=== PATIENT | female | born 1950 | race African-American/Black ===

== ENCOUNTER 2018-06-29 06:30 | Day surgery (SDC) | payer MEDICARE, BC, SELFPAY ==
--- NOTE | 2018-06-28 17:59 | W.PIPPEYE ---
History of Present Illness Chief Complaint: Progressive decreased vision, right eye Narrative: The patient is a 68-year-old female who presented with complaints of progressive decreased vision in both eyes at both distance and near. She notes significant decrease in quality of life because she cannot see. On examination she was noted to have bilateral nuclear cataracts. Corrected visual acuity measured 20/25 in each eye. She was significantly symptomatic that she desired cataract surgery and attempt to improve and maximize her vision and improve her quality of life. NOTE: The Chief Complaint, HPI, Past Medical History, Past Surgical History, Family History, Social History, Medications, and complete Ophthalmic Exam with detailed Assessment and Plan have already been documented in the patient's outpatient ophthalmic record and are not covered again in detail here. PFSH Medical History Nuclear sclerotic cataract of right eye (Acute) Anemia Arthritis Depression Esophageal reflux Surgical History Appendectomy Colonoscopy - MAC (08/23/17) Vaginal hysterectomy Social History Smoking/Tobacco Use Status: Former Tobacco Use Meds Home Medications Medication Instructions Recorded Confirmed Type ezetimibe [Zetia] 10 mg PO DAILY tab-cap 02/25/13 06/27/18 History calcium carbonate [Calcium 600] 600 mg PO BID 08/06/13 06/27/18 History iron 25 mg DAILY 08/06/13 06/27/18 History zolpidem 12.5 mg PO HS PRN PRN 08/06/13 06/27/18 History multivitamin [Daily Multi-Vitamin] 1 ea PO DAILY 01/28/14 06/27/18 History Allergies Allergy/AdvReac Type Severity Reaction Status Date / Time No Known Allergies Allergy Unverified 08/23/17 07:34 Exam OCULAR EXAM:: Most recent ocular examination revealed corrected visual acuity of 20/25 right eye, 20/25 left eye. Intraocular pressure is 12 OU. Extraocular motility is normal. Pupils equal, round, and reactive without afferent pupillary defect slit-lamp examination shows pupils dilating to 4.5 mm OU. 1+ nuclear cataract OU. Funduscopic examination reveals disc cupping of 0.3 OU with good color. The optic nerves have good perfusion and normal color. The retinal vasculature is normal without significant tortuosity or abnormality. The maculas are normal in appearance with normal contour and foveal reflex appropriate for age. The peripheral retina and vitreous are normal. BRIGHTNESS ACUITY TESTING (BAT):: Brightness acuity testing of the right eye off is 20/25. Low and medium is 20/25. High is 20/30. Assessment and Plan (1) Nuclear sclerotic cataract of right eye: Current visit: No Status: Acute Assessment: Visually significant cataract, right eye. Plan: Cataract extraction with intraocular lens implantation, right eye Note: NOTE:: The details of the planned surgery, including the risks, indications,limitations,expectations,outcome and possible complications were explained to the patient. The patient understands the complications including, but not limited to: infection, hemorrhage, posterior dislocation of the lens or nuclear fragments which may require the intervention of a vitreoretinal surgeon, possible loss of the eye, or from anesthetic complications. The patient has been made aware of the option of not having surgery, that vision following surgery may not be equal to that prior to surgery, and that the planned surgery may not achieve the intended results. Following this discussion, which the patient appeared to understand, the patient wishes to proceed with cataract surgery with lens implantation of the affected eye to improve and maximize vision.
[2018-06-29 07:08] VITALS: BP 156/74; PULSE 67; RESP 16; TEMP 36.2; O2SAT 99
[2018-06-29] MEDS: Tropicam./Phenyleph. (1/2.5%) 5 ML BTL OD ×3 (07:18→07:26)
[2018-06-29] MEDS: Tetracaine 0.5% 4 ML BTL OD ×4 (07:18→08:32)
[2018-06-29] MEDS: Lidocaine 2% Jelly 6 ML SYR (08:32)
[2018-06-29] MEDS: Lidocaine 1% Pres-Free 5 ML VIAL (08:34)
[2018-06-29] MEDS: Balanced Salt Soln.-PLUS 500 ML BAG (08:34)
[2018-06-29] MEDS: Povidone-Iodine Ophth 30 ML BTL (09:03)
--- NOTE | 2018-06-29 09:14 | PDOC.DSDIS_ITS ---
Discharge Plan Discharge Details Reason For Visit: CATARACT OD Attending Provider: Jair Hurst Primary Care Provider: [facility] [place] Meds and New Rx's Prescriptions: No Action ezetimibe [Zetia] 10 MG tablet 10 mg PO DAILY RF: 0 calcium carbonate [Calcium 600] 600 MG tablet 600 mg PO BID RF: 0 iron 18 MG tablet 25 mg DAILY RF: 0 zolpidem 12.5 MG tablet,ext release multiphase 12.5 mg PO HS PRN PRNRF: 0 multivitamin [Daily Multi-Vitamin] 1 EACH tablet 1 ea PO DAILY RF: 0 Discharge Instructions Stand Alone Forms: Post-op Topical Cataract, Marcia Alfaro (DSU) DS: Diagnosis Discharge Diagnosis (1) Status post cataract extraction and insertion of intraocular lens of right eye: Status: Acute
--- NOTE | 2018-06-29 09:15 | ROE_ITS ---
Date of service: 06/29/18 Time of Service: 09:14 Operative Note DATE OF PROCEDURE: 06/29/18 PRE-OP DIAGNOSIS: Cataract, right eye PROCEDURE: Cataract extraction using phacoemulsification with intraocular lens implant, right eye SURGEON: Jair Hurst ANESTHESIA: MAC and local (sub-tenon's anesthetic infiltration) ESTIMATED BLOOD LOSS: 0 PATHOLOGY: none sent COMPLICATIONS: None Patient was transported to: same day Patient's condition: stable Implants: Sonu and Sonu Vision / [employer] Tecnis ZCB00 intraocular lens Indications: Progressive decreased vision due to cataract, right eye Procedure Description: CATARACT SURGERY OPERATIVE REPORT PREOPERATIVE DIAGNOSIS: [] POSTOPERATIVE DIAGNOSIS: Same OPERATION: Cataract extraction using phacoemulsification with posterior chamber intraocular lens implant, right eye. IOL: IOL Donor Relations Manager/Model: J&J Vision / CELIA Tecnis ZCB00 IOL Power: +[] diopters IOL Serial Number: [] Optic Diameter: 6.0mm Haptic/Overall Diameter: 13.0mm PHACO INFO: [employer] Vision System with OZil and Active Fluidics Cumulative Dispersed Energy (CDE): [] seconds SURGEON: Jair Hurst MD, PORTER ANESTHESIA: Monitored Anesthesia Care (MAC), with local sub-tenon's anesthetic infiltration COMPLICATIONS: None SPECIMENS: None INDICATIONS FOR PROCEDURE: [] PROCEDURE: The correct surgical eye was identified and marked as the right eye and the pupil was dilated in the preoperative area using mydriatics and cycloplegics. The dilated pupil size was [] mm. Oral sedation was administered in the form of an Imprimis MKO Melt (midazolam 3mg/ketamine 25mg/ondansetron 2mg). The patient was brought to the operating room where cardiopulmonary monitoring was instituted and surgical time-out was performed, confirming the correct operative eye and IOL power. Topical anesthesia was administered and ophthalmic povidone-iodine 5% was instilled into the conjunctival fornices. Lidocaine gel was applied to the cornea and the edmundo-ocular area was prepped with Betadine 10% solution and draped in the usual sterile fashion for intraocular surgery, including an aperture drape. A Tegaderm transparent film dressing was cut in half and used to cover the lashes and lid margins. Care was taken to sequester the lashes and lid margins under the Tegaderm dressing. A lid speculum was placed between the lids of the operative eye and the Yudelka-Kamari operating microscope was maneuvered into position. Phu scissors were then used to make a conjunctival buttonhole approximately 6mm posterior to the limbus in the inferonasal quadrant. Blunt dissection was carried out to expose bare sclera, and a blunt-tipped sub-tenon?s anesthesia cannula was introduced and passed posteriorly along the globe where non- preserved plain lidocaine was injected into posterior sub-Tenon?s space. A sideport knife was used to make a paracentesis port inferiortemporally, and the anterior chamber was filled with Healon GV. A 2.4mm keratome knife was used to create a half-thickness groove at the limbus and then to construct a three-plane near-clear corneal tunnel extending 2.0mm into clear cornea in the superiortemporal position. . A flap was raised on the anterior capsule and capsulorhexis forceps were used to complete a continuous curvilinear capsulorhexis of []mm. Balanced salt solution was then used to perform cortical cleaving hydrodissection and nuclear hydrodelineation until the lens could be freely rotated within the capsular bag. The lens nucleus was then disassembled and removed within the capsular bag and iris plane using phacoemulsification. Residual cortical material was removed using the 45-degree angled silicone I/A tip with 0.3mm port. The posterior capsule was carefully polished to remove as much residual lens epithelial cells as safely possible. The capsular bag was then inflated and the anterior chamber deepened with viscoelastic. The lens implant described above was inserted into the capsular bag using the CELIA [place] Injector. A Kuglen hook was used to dial the IOL into position. Residual viscoelastic was then removed first from posterior to the IOL, then from the anterior chamber using the I/A handpiece. The lens implant was noted to center nicely within the capsular bag. The incisions were stromally hydrated, and the anterior chamber was reformed using BSS. Then 0.4cc of moxifloxacin 1.5mg/ml were injected into the capsular bag and anterior chamber. The incisions were checked with a Weck spear and found to be secure. Several drops of ophthalmic povidone-iodine 5% were then applied to the eye followed by two drops of Imprimis combination moxifloxacin/dexamethasone solution. The drapes were removed and a clear plastic protective eye shield was placed over the eye. The patient was then returned to Same Day Surgery in stable condition.
--- NOTE | 2018-06-29 09:16 | ROE_ITS ---
Operative Note DATE OF PROCEDURE: 06/29/18 PRE-OP DIAGNOSIS: Cataract, right eye PROCEDURE: Sonu and Sonu Vision / [employer] Tecnis ZCB00 intraocular lens SURGEON: Jair Hurst ANESTHESIA: MAC and local (sub-tenon's anesthetic infiltration) ESTIMATED BLOOD LOSS: 0 PATHOLOGY: none sent COMPLICATIONS: None Patient was transported to: same day Patient's condition: stable Implants: Sonu and Sonu Vision / [employer] Tecnis ZCB00 intrao cular lens Indications: Progressive decreased vision due to cataract, right eye Procedure Description: CATARACT SURGERY OPERATIVE REPORT PREOPERATIVE DIAGNOSIS: [] POSTOPERATIVE DIAGNOSIS: Same OPERATION: Cataract extraction using phacoemulsification with posterior chamber intraocular lens implant, right eye. IOL: IOL Food Service Specialist/Model: J&J Vision / CELIA Tecnis ZCB00 IOL Power: +[] diopters IOL Serial Number: [] Optic Diameter: 6.0mm Haptic/Overall Diameter: 13.0mm PHACO INFO: Mikey [employer] Vision System with OZil and Active Fluidics Cumulative Dispersed Energy (CDE): [] seconds SURGEON: Jair Hurst MD, PORTER ANESTHESIA: Monitored Anesthesia Care (MAC), with local sub-tenon's anesthetic infiltration COMPLICATIONS: None SPECIMENS: None INDICATIONS FOR PROCEDURE: [] PROCEDURE: The correct surgical eye was identified and marked as the right eye and the pupil was dilated in the preoperative area using mydriatics and cycloplegics. The dilated pupil size was [] mm. Oral sedation was administered in the form of an Imprimis MKO Melt (midazolam 3mg/ketamine 25mg/ondansetron 2mg). The patient was brought to the operating room where cardiopulmonary monitoring was instituted and surgical time-out was performed, confirming the correct operative eye and IOL power. Topical anesthesia was administered and ophthalmic povidone-iodine 5% was instilled into the conjunctival fornices. Lidocaine gel was applied to the cornea and the edmundo-ocular area was prepped with Betadine 10% solution and draped in the usual sterile fashion for intraocular surgery, including an aperture drape. A Tegaderm transparent film dressing was cut in half and used to cover the lashes and lid margins. Care was taken to sequester the lashes and lid margins under the Tegaderm dressing. A lid speculum was placed between the lids of the operative eye and the Yudelka-Kamari operating microscope was maneuvered into position. Phu scissors were then used to make a conjunctival buttonhole approximately 6mm posterior to the limbus in the inferonasal quadrant. Blunt dissection was carried out to expose bare sclera, and a blunt-tipped sub-tenon?s anesthesia cannula was introduced and passed posteriorly along the globe where non- preserved plain lidocaine was injected into posterior sub-Tenon?s space. A sideport knife was used to make a paracentesis port inferiortemporally, and the anterior chamber was filled with Healon GV. A 2.4mm keratome knife was used to create a half-thickness groove at the limbus and then to construct a three-plane near-clear corneal tunnel extending 2.0mm into clear cornea in the superiortemporal position. . A flap was raised on the anterior capsule and capsulorhexis forceps were used to complete a continuous curvilinear capsulorhexis of []mm. Balanced salt solution was then used to perform cortical cleaving hyd rodissection and nuclear hydrodelineation until the lens could be freely rotated within the capsular bag. The lens nucleus was then disassembled and removed within the capsular bag and iris plane using phacoemulsification. Residual cortical material was removed using the 45-degree angled silicone I/A tip with 0.3mm port. The posterior capsule was carefully polished to remove as much residual lens epithelial cells as safely possible. The capsular bag was then inflated and the anterior chamber deepened with viscoelastic. The lens implant described above was inserted into the capsular bag using the CELIA [place] Injector. A Kuglen hook was used to dial the IOL into position. Residual viscoelastic was then removed first from posterior to the IOL, then from the anterior chamber using the I/A handpiece. The lens implant was noted to center nicely within the capsular bag. The incisions were stromally hydrated, and the anterior chamber was reformed using BSS. Then 0.4cc of moxifloxacin 1.5mg/ml were injected into the capsular bag and anterior chamber. The incisions were checked with a Weck spear and found to be secure. Several drops of ophthalmic povidone-iodine 5% were then applied to the eye followed by two drops of Imprimis combination moxifloxacin/dexamethasone solution. The drapes were removed and a clear plastic protective eye shield was placed over the eye. The patient was then returned to Same Day Surgery in stable condition.
[2018-06-29 09:40] VITALS: BP 130/75; PULSE 67; RESP 18; TEMP 36.7; O2SAT 98
--- NOTE | 2018-06-29 10:05 | ROE_ITS ---
Date of service: 06/29/18 Time of Service: 10:04 Operative Note DATE OF PROCEDURE: 06/29/18 PRE-OP DIAGNOSIS: Cataract, right eye POST-OP DIAGNOSIS: same PROCEDURE: 1. Cataract extraction by phacoemulsification with intraocular lens implantation, right eye, with pupillary expansion device SURGEON: Jair Hurst ANESTHESIA: MAC and local (sub-tenon's anesthetic infiltration) ESTIMATED BLOOD LOSS: 0 PATHOLOGY: none sent COMPLICATIONS: None Patient was transported to: same day Patient's condition: stable Implants: Sonu and Sonu / [employer] Tecnis ZCB00 Indications: Progressive decreased vision due to cataract, right eye, with poorly dilating pupil Procedure Description: CATARACT SURGERY OPERATIVE REPORT PREOPERATIVE DIAGNOSIS: 1. Nuclear cataract, right eye 2. Poorly dilating pupil, right eye POSTOPERATIVE DIAGNOSIS: Same OPERATION: 1. Cataract extraction using phacoemulsification with posterior chamber intraocular lens implant, right eye. 2. Pupillary dilation and iris stabilization using Malyugin Ring IOL: IOL Logging Worker/Model: Sonu & Sonu / CELIA Tecnis ZCB00 IOL Power: + 20.50 diopters IOL Serial Number: [id number] Optic Diameter: 6.0mm Haptic/Overall Diameter: 13.0mm PHACO INFO: Mikey [employer] Vision System with OZil and Active Fluidics Cumulative Dispersed Energy (CDE): 9.41 seconds SURGEON: Jair Hurst MD, PORTER ANESTHESIA: Monitored Anesthesia Care (MAC), with local sub-tenon's anesthetic infiltration COMPLICATIONS: None SPECIMENS: None INDICATIONS FOR PROCEDURE: The patient is a 68-year-old lady with history of diminished visual acuity in both eyes. She was noted to have moderate bilateral nuclear cataracts with fairly good visual acuity, but with significant symptoms. She desired cataract surgery and attempt to improve and maximize her vision and quality of life PROCEDURE: The correct surgical eye was identified and marked as the right eye and the pupil was dilated in the preoperative area using mydriatics and cycloplegics. The dilated pupil size was four-point mm. Oral sedation was administered in the form of an Imprimis MKO Melt (midazolam 3mg/ketamine 25mg/ondansetron 2mg). The patient was brought to the operating room where cardiopulmonary monitoring was instituted and surgical time-out was performed, confirming the correct operative eye and IOL power. Topical anesthesia was administered and ophthalmic povidone-iodine 5% was instilled into the conjunctival fornices. Lidocaine gel was applied to the cornea and the edmundo-ocular area was prepped with Betadine 10% solution and draped in the usual sterile fashion for intraocular surgery, including an aperture drape. A Tegaderm transparent film dressing was cut in half and used to cover the lashes and lid margins. Care was taken to sequester the lashes and lid margins under the Tegaderm dressing. A lid speculum was placed between the lids of the operative eye and the Yudelka-Kamari operating microscope was maneuvered into position. Phu scissors were then used to make a conjunctival buttonhole approximately 6mm posterior to the limbus in the inferonasal quadrant. Blunt dissection was carried out to expose bare sclera, and a blunt-tipped sub-tenon?s anesthesia cannula was introduced and passed posteriorly along the globe where non- preserved plain lidocaine was injected into posterior sub-Tenon?s space. A sideport knife was used to make a paracentesis port inferiortemporally. The anterior chamber was filled with Healon GV. A 2.4mm keratome knife was used to create a half-thickness groove at the limbus and then to construct a three-plane near-clear corneal tunnel extending 2.0mm into clear cornea superiortemporally. A 7.0 mm Malyugin Ring was then inserted into the pupillary space and engaged with the Kuglen hook. A flap was raised on the anterior capsule and capsu lorhexis forceps were used to complete a continuous curvilinear capsulorhexis of 4.5 mm. Balanced salt solution was then used to perform cortical cleaving hydrodissection and nuclear hydrodelineation until the lens could be freely rotated within the capsular bag. The lens nucleus was then disassembled and removed within the capsular bag and iris plane using phacoemulsification. Residual cortical material was removed using the 45-degree angled silicone I/A tip with 0.3mm port. The posterior capsule was carefully polished to remove as much residual lens epithelial cells as safely possible. The capsular bag was then inflated and the anterior chamber deepened with viscoelastic. The lens implant described above was inserted into the capsular bag using the CELIA [place] Injector. A Kuglen hook was used to dial the IOL into position. The Malyugin Ring was removed in the reverse order of its insertion. Residual viscoelastic was then removed first from posterior to the IOL, then from the anterior chamber using the I/A handpiece. The lens implant was noted to center nicely within the capsular bag. The incisions were stromally hydrated, and the anterior chamber was reformed using BSS. Then 0.4cc of moxifloxacin 1.5mg/ml were injected into the capsular bag and anterior chamber. The incisions were checked with a Weck spear and found to be secure. Several drops of ophthalmic povidone-iodine 5% were then applied to the eye followed by two drops of Imprimis combination moxifloxacin/dexamethasone solution. The drapes were removed and a clear plastic protective eye shield was placed over the eye. The patient was then returned to Same Day Surgery in stable condition.
== END 2018-06-29 10:30 | disposition home or self-care (01) ==
LOC: SUR 10:40
PROVIDERS: PCP Neuromusculoskeletal Medicine & OMM; Visit Provider Ophthalmology
PROC: (CPT 66982; principal; 2018-06-29 08:30)
DX: H25.11 Age-related nuclear cataract, right eye (principal); H57.09 Other anomalies of pupillary function; K21.9 Gastro-esophageal reflux disease without esophagitis; F10.21 Alcohol dependence, in remission
CPT/HCPCS: 66982; V2632

== ENCOUNTER 2018-07-04 08:54 | Outpatient (CLI) | payer MEDICARE, BC, SELFPAY ==
[2018-07-04 10:22] LABS: ALT 15 U/L (12-78); AST 16 U/L (15-37); Albumin 3.7 g/dL (3.4-5.0); Alkaline Phosphatase 62 U/L (46-116); Anion Gap 8.8 mmol/L (3-11); BUN 11 mg/dL (7-18); Bilirubin, Total 0.4 mg/dL (0.2-1.0); CO2 27.2 mmol/L (21.0-32.0); CREATININE 0.74 mg/dL (0.55-1.02); Calcium 9.3 mg/dL (8.5-10.1); Chloride 106 mmol/L (98-107); Cholesterol 243 mg/dL (50-200); Glucose 95 mg/dL (70-100); HDL Cholesterol 67 mg/dL (40-60); LDL CHOLESTEROL 157 mg/dL (<100); Potassium 4.2 mmol/L (3.5-5.1); Sodium 142 mmol/L (136-145); Triglyceride 74 mg/dL (30-150)
== END 2018-07-04 09:14 ==
PROVIDERS: PCP Neuromusculoskeletal Medicine & OMM; Visit Provider Neuromusculoskeletal Medicine & OMM
DX: E78.5 Hyperlipidemia, unspecified (principal)
CPT/HCPCS: 36415; 80053; 80061; 83721

== ENCOUNTER 2018-07-13 06:43 | Day surgery (SDC) | payer MEDICARE, BC, SELFPAY ==
--- NOTE | 2018-07-12 18:37 | POEE_ITS ---
History of Present Illness Chief Complaint: Progressive decreased vision, left eye Narrative: The patient is a 68-year old lady with history of progressive decreased vision in both eyes at both distance and near. On examination she was noted to have moderate bilateral nuclear cataracts. She was significantly sym ptomatic that she desired cataract surgery which was performed OD on 06/29/2018. Postoperatively she has regained uncorrected visual acuity of 20/20 in the right eye. She now presents for cataract surgery in the left eye. NOTE: The Chief Complaint, HPI, Past Medical History, Past Surgical History, Family History, Social History, Medications, and complete Ophthalmic Exam with detailed Assessment and Plan have already been documented in the patient's outpatient ophthalmic record and are not covered again in detail here. PFSH Medical History Nuclear sclerotic cataract of right eye (Resolved) Anemia Arthritis Depression Esophageal reflux Surgical History Status post cataract extraction and insertion of intraocular lens of right eye (Chronic 06/29/18) Appendectomy Colonoscopy - MAC (08/23/17) Vaginal hysterectomy Social History Smoking/Tobacco Use Status: Former Tobacco Use Meds Home Medications Medication Instructions Recorded Confirmed Type ezetimibe [Zetia] 10 mg PO DAILY tab-cap 02/25/13 06/29/18 History calcium carbonate [Calcium 600] 600 mg PO BID 08/06/13 06/29/18 History iron 25 mg DAILY 08/06/13 06/29/18 History zolpidem 12.5 mg PO HS PRN PRN 08/06/13 06/29/18 History multivitamin [Daily Multi-Vitamin] 1 ea PO DAILY 01/28/14 06/29/18 History Allergies Allergy/AdvReac Type Severity Reaction Status Date / Time No Known Allergies Allergy Unverified 06/29/18 07:05 Exam OCULAR EXAM:: Recent ocular examination reveals best corrected visual acuity of 20/20 in the right eye, 20/25 in the left. Intraocular pressure is 14 OD, 12 OS. Extraocular motility is normal. Pupils equal, round, and reactive without afferent pupillary defect. Slit-lamp examination shows pupils dilating to 4.5 mm OU. Well-positioned PCIOL OD with clear posterior capsule. 1+ nuclear cataract OS. Dilated funduscopic examination shows disc cupping of 0.3 OU with good color. The optic nerves have good perfusion and normal color. The retinal vasculature is normal without significant tortuosity or abnormality. The maculas are normal in appearance with normal contour and foveal reflex appropriate for age. The peripheral retina and vitreous are normal. BRIGHTNESS ACUITY TESTING (BAT):: Brightness acuity testing of the left eye off 20/25. Low 20/25. Medium 20/25. High 20/30. Assessment and Plan (1) Nuclear sclerotic cataract of left eye: Current visit: No Status: Acute Assessment: Visually significant cataract, left eye. Plan: Cataract extraction with intraocular lens implantation, left eye Note: NOTE:: The details of the planned surgery, including the risks, indications ,limitations,expectations,outcome and possible complications were explained to the patient. The patient understands the complications including, but not limited to: infection, hemorrhage, posterior dislocation of the lens or nuclear fragments which may require the intervention of a vitreoretinal surgeon, possible loss of the eye, or from anesthetic complications. The patient has been made aware of the option of not having surgery, that vision following surgery may not be equal to that prior to surgery, and that the planned surgery may not achieve the intended results. Following this discussion, which the patient appeared to understand, the patient wishes to proceed with cataract surgery with lens implantation of the affected eye to improve and maximize vision.
--- NOTE | 2018-07-12 18:43 | W.PM.DSUDISC ---
Discharge Plan Discharge Details Attending Provider: Jair Hurst Primary Care Provider: [facility] [place] Meds and New Rx's Prescriptions: No Action ezetimibe [Zetia] 10 MG tablet 10 mg PO DAILY RF: 0 calcium carbonate [Calcium 600] 600 MG tablet 600 mg PO BID RF: 0 iron 18 MG tablet 25 mg DAILY RF: 0 zolpidem 12.5 MG tablet,ext release multiphase 12.5 mg PO HS PRN PRNRF: 0 multivitamin [Daily Multi-Vitamin] 1 EACH tablet 1 ea PO DAILY RF: 0 Discharge Instructions Stand Alone Forms: Post-op Topical Cataract, Marcia Alfaro (DSU) DS: Diagnosis Discharge Diagnosis (1) Status post cataract extraction and insertion of intraocular lens of left eye: Status: Chronic
--- NOTE | 2018-07-12 18:46 | ROE_ITS ---
Date of service: 07/13/18 Time of Service: 09:13 Operative Note PRE-OP DIAGNOSIS: Cataract, left eye, with poorly dilating pupil POST-OP DIAGNOSIS: same PROCEDURE: Cataract extraction by phacoemulsification with intraocular lens implantation, left eye, with pupillary expansion device SURGEON: Jair Hurst ANESTHESIA: MAC and local (sub-tenon's anesthetic infiltration) ESTIMATED BLOOD LOSS: 0 PATHOLOGY: none sent COMPLICATIONS: None Patient was transported to: same day Patient's condition: stable Implants: Sonu and Sonu / [employer] Tecnis [id number] Indications: Progressive decreased vision, left eye Procedure Description: CATARACT SURGERY OPERATIVE REPORT PREOPERATIVE DIAGNOSIS: 1. Nuclear cataract, left eye 2. Poorly dilating pupil, left eye POSTOPERATIVE DIAGNOSIS: Same OPERATION: 1. Cataract extraction using phacoemulsification with posterior chamber intraocular lens implant, left eye. 2. Pupillary dilation and iris stabilization using Malyugin Ring IOL; IOL Gas And Oil Checker/Model: Sonu & Sonu / CELIA Tecnis [id number] IOL Power: + 20.5 diopters IOL Serial Number: [id number] Optic Diameter: 6.0 mm Haptic/Overall Diameter: 13.00 mm PHACO INFO: Mikey Smart Ecosystemsurion Vision System with OZil and Active Fluidics Cumulative Dispersed Energy (CDE): 7.07 seconds SURGEON: Jair Hurst MD, PORTER ANESTHESIA: Monitored Anesthesia Care (MAC), with local sub-tenon's anesthetic infiltration COMPLICATIONS: None SPECIMENS: None INDICATIONS FOR PROCEDURE: Patient is a 68-year old lady with history of diminished visual acuity in both eyes secondary to the development of bilateral nuclear cataracts. She has already undergone cataract surgery in her right eye and is doing well postoperatively. She now presents for cataract surgery in the left eye. PROCEDURE: The correct surgical eye was identified and marked as the left eye and the pupil was dilated in the preoperative area using mydriatics, cycloplegics, and NSAIDS (except in aspirin allergic patients). The dilated pupil size was 4.5 mm. Oral sedation was administered in the form of an Imprimis MKO Melt (midazolam 3mg/ketamine 25mg/ondansetron 2mg). The patient was brought to the operating room where cardiopulmonary monitoring was instituted and surgical time-out was performed, confirming the correct operative eye and IOL power. Topical anesthesia was administered and ophthalmic povidone-iodine 5% was instilled into the conjunctival fornices. Lidocaine gel was applied to the co rnea and the edmundo-ocular area was prepped with Betadine 10% solution and draped in the usual sterile fashion for intraocular surgery, including an aperture drape. A Tegaderm transparent film dressing was cut in half and used to cover the lashes and lid margins. Care was taken to sequester the lashes and lid margins under the Tegaderm dressing. A lid speculum was placed between the lids of the operative eye and the Yudelka-Kamari operating microscope was maneuvered into position. Phu scissors were then used to make a conjunctival buttonhole approximately 6mm posterior to the limbus in the inferonasal quadrant. Blunt dissection was carried out to expose bare sclera, and a blunt-tipped sub-tenon?s anesthesia cannula was introduced and passed posteriorly along the globe where non-preser sirena plain lidocaine was injected into posterior sub-Tenon?s space. A sideport knife was used to make a paracentesis port superiorly/superiortemporally. The anterior chamber was filled with Healon GV. A 2.4mm keratome knife was used to create a half-thickness groove at the limbus and then to construct a three-plane near-clear corneal tunnel extending 2.0mm into clear cornea at the temporal position. A 7.0 mm Malyugin Ring was then inserted into the pupillary space and engaged with the Kuglen hook. A flap was raised on the anterior capsule and capsulorhexis forceps were used to complete a continuous curvilinear capsulorhexis of 5.0 mm. Balanced salt solution was then used to perform cortical cleaving hydrodissection and nuclear hydrodelineation until the lens could be freely rotated within the capsular bag. The lens nucleus was then disassembled and removed within the capsular bag and iris plane using phacoemulsification. Residual cortical material was removed using the 45-degree angled silicone I/A tip with 0.3mm port. The posterior capsule was carefully polished to remove as much residual lens epithelial cells as safely possible. The capsular bag was then inflated and the anterior chamber deepened with viscoelastic. The lens implant described above was inserted into the capsular bag using the CELIA [place] Injector. A Kuglen hook was used to dial the IOL into position. The Malyugin Ring was removed in the reverse order of its insertion. Residual viscoelastic was then removed first from posterior to the IOL, then from the anterior chamber using the I/A handpiece. The lens implant was noted to center nicely within the capsular bag. The incisions were stromally hydrated, and the anterior chamber was reformed using BSS. Then 0.4cc of moxifloxacin 1.5mg/ml were injected into the capsular bag and anterior chamber. The incisions were checked with a Weck spear and found to be secure. Several drops of ophthalmic povidone-iodine 5% were then applied to the eye followed by two drops of Imprimis combination moxifloxacin/dexamethasone solution. The drapes were removed and a clear plastic protective eye shield was placed over the eye. The patient was then returned to Same Day Surgery in stable condition.
[2018-07-13 07:03] VITALS: BP 134/76; PULSE 70; RESP 16; TEMP 36.6; O2SAT 100
[2018-07-13] MEDS: Tetracaine 0.5% 4 ML BTL OS ×4 (07:21→08:34)
[2018-07-13] MEDS: Tropicam./Phenyleph. (1/2.5%) 5 ML BTL OS ×3 (07:22→07:36)
[2018-07-13] MEDS: Lidocaine 2% Jelly 6 ML SYR (08:35)
[2018-07-13] MEDS: Balanced Salt Soln.-PLUS 500 ML BAG (08:35)
[2018-07-13] MEDS: Lidocaine 1% Pres-Free 5 ML VIAL (08:35)
[2018-07-13] MEDS: Povidone-Iodine Ophth 30 ML BTL (08:41)
[2018-07-13 09:40] VITALS: BP 135/70; PULSE 68; RESP 18; TEMP 35.6; O2SAT 96
== END 2018-07-13 10:05 | disposition home or self-care (01) ==
LOC: SUR 06:44
PROVIDERS: PCP Neuromusculoskeletal Medicine & OMM; Visit Provider Ophthalmology
PROC: (CPT 66982; principal; 2018-07-13 08:30)
DX: H25.12 Age-related nuclear cataract, left eye (principal); H57.09 Other anomalies of pupillary function; Z98.41 Cataract extraction status, right eye; Z96.1 Presence of intraocular lens; K21.9 Gastro-esophageal reflux disease without esophagitis; F10.21 Alcohol dependence, in remission
CPT/HCPCS: 66982; V2632

== ENCOUNTER 2018-11-09 07:20 | Outpatient (CLI) | payer MEDICARE, BC, SELFPAY ==
--- NOTE | 2018-11-09 15:11 | DI.RAD_ITS ---
SYMPTOMS/DIAGNOSIS: LT HIP PAIN, M25.559 PELVIS AND LEFT HIP: Comparison is made with August,. There has been no change in the appearance of a right total hip prosthesis. There has been interval worsening of degenerative changes of the left hip. There is now moderate joint space narrowing, as well as moderate spurring from the femoral head, and periarticular sclerosis and a few small subchondral cysts. Severe disc space narrowing is again noted at L4-5 and L5-S1. The SI joints are unremarkable. IMPRESSION: Interval worsening of degenerative changes of the left hip, now moderate to severe.
== END 2018-11-09 07:40 ==
PROVIDERS: PCP Neuromusculoskeletal Medicine & OMM; Visit Provider Neuromusculoskeletal Medicine & OMM
DX: M25.552 Pain in left hip (principal); M16.12 Unilateral primary osteoarthritis, left hip; Z96.641 Presence of right artificial hip joint
CPT/HCPCS: 73502

== ENCOUNTER 2019-04-17 14:27 | Outpatient (CLI) | payer MEDICARE, BC, SELFPAY ==
--- NOTE | 2019-04-17 14:26 | DI.RAD_ITS ---
EXAM: XR PELVIS AP INDICATION: hip pain. COMPARISON: No exams were available for comparison TECHNIQUE: 2D digital imaging was performed. FINDINGS: There are stable postsurgical changes of a right total hip replacement. In the left hip there is mod erate joint space narrowing, subchondral sclerosis and periarticular spurring. No acute fracture or dislocation is present. Arterial calcifications are present. IMPRESSION: Stable degenerative changes of the left hip.
== END 2019-04-17 14:47 ==
PROVIDERS: PCP Neuromusculoskeletal Medicine & OMM; Referring Provider Neuromusculoskeletal Medicine & OMM; Visit Provider Student in an Organized Health Care Education/Training Program
DX: M25.551 Pain in right hip (principal); Z96.641 Presence of right artificial hip joint; M16.12 Unilateral primary osteoarthritis, left hip
CPT/HCPCS: 99203; 99214; 72170

== ENCOUNTER → 2019-05-27 14:30 | Outpatient (BNVA) | payer MEDICARE, BC, SELFPAY | PROVIDERS: PCP Neuromusculoskeletal Medicine & OMM; Referring Provider Neuromusculoskeletal Medicine & OMM; Visit Provider Student in an Organized Health Care Education/Training Program | DX: M16.12 Unilateral primary osteoarthritis, left hip (principal) | CPT/HCPCS: 99214 ==

== ENCOUNTER 2019-07-30 09:20 | Outpatient (CLI) | payer MEDICARE, BC, SELFPAY ==
[2019-07-30 10:26] LABS: ALT 13 U/L (14-59); AST 15 U/L (15-37); Albumin 3.3 g/dL (3.4-5.0); Alkaline Phosphatase 56 U/L (46-116); Anion Gap 10.2 mmol/L (3-11); BUN 8 mg/dL (7-18); Bilirubin, Total 0.3 mg/dL (0.2-1.0); CO2 24.8 mmol/L (21.0-32.0); CREATININE 0.73 mg/dL (0.55-1.02); Calcium 8.2 mg/dL (8.5-10.1); Chloride 109 mmol/L (98-107); Glucose 100 mg/dL (74-106); Potassium 4.5 mmol/L (3.5-5.1); Sodium 144 mmol/L (136-145); Total Protein 6.5 g/dL (6.4-8.2)
[2019-07-30 10:38] LABS: Calculated LDL 154 mg/dL (<100); Cholesterol 233 mg/dL (<200); HDL Cholesterol 59 mg/dL (40-60); Triglyceride 103 mg/dL (<150)
== END 2019-07-30 09:40 ==
PROVIDERS: PCP Neuromusculoskeletal Medicine & OMM; Visit Provider Neuromusculoskeletal Medicine & OMM
DX: E78.5 Hyperlipidemia, unspecified (principal)
CPT/HCPCS: 36415; 80053; 80061

== ENCOUNTER 2019-08-10 12:38 | Emergency (ER) | payer MEDICARE, BC, SELFPAY ==
--- NOTE | 2019-08-10 12:45 | DI.RAD_ITS ---
EXAM: XR KNEE RT 3V AP,LAT,SAMARA CLINICAL HISTORY: pain TECHNIQUE: COMPARISON: No exams were available for comparison FINDINGS: Three views were obtained. Note is made of chondrocalcinosis. No other bony or soft tissue abnormal ity seen. IMPRESSION:
[2019-08-10 12:46] VITALS: BP 140/71; PULSE 81; RESP 18; TEMP 36.5; O2SAT 100
--- NOTE | 2019-08-10 13:00 | DI.RAD_ITS ---
EXAM: XR HIP RT AP LAT ONLY CLINICAL HISTORY: pain TECHNIQUE: COMPARISON: LEFT HIP COMPLETE from 09/05/2012 FINDINGS: Two views were obtained. There is a total hip joint replacement in position. The components appear well seated. No other significant bony or soft tissue abnormality seen. IMPRESSION:
--- NOTE | 2019-08-10 13:23 | ED.GENADUL_ITS ---
Discharge Plan Disposition Patient Disposition: HOME Condition: Stable Discharge Details Chief Complaint: Orthopedic Clinical Impression: Knee effusion, right Primary Care Provider: Shaw Scott ED Provider: Maryuri Leung Home Meds and New Rx's Prescriptions: Continued ezetimibe [Zetia] 10 MG tablet 10 mg PO DAILY RF: 0 calcium carbonate [Calcium 600] 600 MG tablet 600 mg PO BID RF: 0 iron 18 MG tablet 25 mg DAILY RF: 0 zolpidem 12.5 MG tablet,ext release multiphase 12.5 mg PO HS PRN PRNRF: 0 multivitamin [Daily Multi-Vitamin] 1 EACH tablet 1 ea PO DAILY RF: 0 ibuprofen [IBU-200] 200 mg Tablet 600 mg PO Q6H PRNRF: 0 Discharge Instructions Instructions: Swollen Knee Joint (ED) Additional Instructions: Rest. Activities as tolerated. Elevate injury to prevent swelling. Patrick wrap as discussed. Crutches for ambulation Ice to the area of discomfort for 15 min. 3-5 times daily. Motrin every 8 hours with food or Tylenol every 6 hours for soreness if needed over the counter for comfort. Followup with orthopedic doctor as discussed if not improving in one week. Return for any worsening or concerns sooner if needed. Referrals: Quang Parra MD [ [facility] STAFF PHYSICIAN] - Medical Decision Making 69-year-old patient presents for complaints of right knee pain. Patient reports right knee effusion for the last 2 days without specific injury or trauma. Patient did have chiropractic adjustment prior to onset of pain however does not feel this is likely related as there was no obvious related trauma or manipulation of the lower leg. Patient does report mild radiating pain from the back and chronic back pain. Despite patient's radiating pain reported from the back she has an obvious and new effusion to the right knee. Nothing to indicate a septic joint, no erythema or warmth or pain with passive range of motion. Patient does have limitation with active range of motion specifically flexion of the knee. Patient has lateral joint line tenderness on exam. No obvious swelling below the knee. Distal neurovascularly intact. Patient does have mild right hip pain on exam therefore after discussion of obtaining x-rays of the right knee we will also add right hip imaging at patient's preference. Patient denies any systemic signs of illness. Patient's x-rays reveal no acute fracture. Patient with knee effusion without indication of septic joint. Well-appearing nontoxic patient. Vital signs reviewed. Patient did report onset of knee pain after seeing her chiropractor for back pain. Patient may have had spontaneous knee effusion versus degenerative knee effusion. 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 Rice encouraged. Patient has orthopedic follow-up as she is due for preoperative appointment for left hip replacement with orthopedics. Patient encouraged follow-up with her knee effusion with her orthopedist. Patient agrees with plan of care. Patient typically does walk with a cane however will provide crutches for more stable ambulation. Patient agrees with this plan of care. Patrick wrap encouraged. Discussed use of Patrick wrap. The patient was stable and requested discharge. Prior to discharge, my usual and customary return precautions were reviewed with the patient - this included follow-up instructions and reasons to return to the Emergency Department if conditions worsens, does not improve as expected, or other new concerns arise. HPI General Date/Time Provider Initiated Documentation: 08/10/19 12:39 . HPI Narrative: Is a 69-year-old patient presenting to the emergency room for complaints of 2 days of right knee pain. Patient denies any specific injury or trauma. Patient reports noted onset of knee pain in the morning 2 days ago. No escalation of pain since onset. Mild swelling noted for the last 2 days. Patient does report some difficulty with range of motion of the right leg and mild hip pain noted yesterday. Patient does report she saw her chiropractor 2 days ago who adjusted her back but denies any obvious injury to the leg. Denies any manipulation of the leg. Patient denies numbness, tingling or weakness of the leg associated. Patient denies any ill feeling whatsoever. No fever, chills, nausea vomiting. Denies clicking, popping or giving out of the knee. No instability sensation. No other concerns or complaints at this time. Has taken ibuprofen today. Related Data Home Medications Medication Instructions Recorded Confirmed ezetimibe [Zetia] 10 mg PO DAILY tab-cap 02/25/13 08/10/19 calcium carbonate [Calcium 600] 600 mg PO BID 08/06/13 08/10/19 iron 25 mg DAILY 08/06/13 08/10/19 zolpidem 12.5 mg PO HS PRN PRN 08/06/13 08/10/19 multivitamin [Daily Multi-Vitamin] 1 ea PO DAILY 01/28/14 08/10/19 ibuprofen [IBU-200] 600 mg PO Q6H PRN 08/10/19 08/10/19 Allergies Allergy/AdvReac Type Severity Reaction Status Date / Time No Known Allergies Allergy Unverified 08/10/19 12:50 General Stated Complaint: Orthopedic RUSTAM: 4 Review of Systems All systems reviewed & are unremarkable except as noted in HPI and below Constitutional Constitutional: Denies chills, Denies fatigue, Denies fever(s), Denies headache(s) and Denies malaise ENT Ears, Nose, Mouth, and Throat: Denies headache(s) and Denies neck pain Musculoskeletal Musculoskeletal: Reports abnormal gait (limping), Reports back pain, Reports joint swelling, Reports limited range of motion, Denies neck pain, Denies numbness and Reports stiffness Integumentary/Breasts Skin/Breast: Denies erythema and Denies rash Neurologic Neurologic: Reports abnormal gait (limping), Denies headache(s) and Denies numbness Endocrine Endocrine: Denies fatigue PFSH Medical History Anemia Arthritis Degenerative arthritis of spine (Acute) Depression Esophageal reflux Nuclear sclerotic cataract of right eye (Resolved) Surgical History Appendectomy Colonoscopy - MAC (08/23/17) Status post cataract extraction and insertion of intraocular lens of left eye (Chronic 07/13/18) Status post cataract extraction and insertion of intraocular lens of right eye (Chronic 06/29/18) Vaginal hysterectomy Social History Smoking/Tobacco Use Status: Former Tobacco Use Alcohol Intake: never Drug use: Never Current gender identity: female Do you feel safe at home: Yes Do you feel safe in your relationship?: Yes Female Reproductive History Menstrual control method: progestin IUCD Exam Narrative Exam Narrative: CONST: Healthy appearing patient, in no acute distress. Well hydrated. Alert and oriented. MUSCULOSKELETAL: Left leg: Benign exam, straight leg raise intact. Right leg able to straight leg raise with some difficulty and limitation. Able to lift leg off the stretcher and clear heel. Mild lateral hip pain with palpation. No erythema or warmth with palpation over the hip. No femoral pain with palpation. Right knee obvious effusion present without erythema or warmth. No pain with passive range of motion of the joint. Pain with active flexion of the joint. No significant pain with shifting of the patella. Patella is midline. Lateral joint line tenderness noted on exam. Mild posterior swelling present. No calf pain with palpation, ankle pain with palpation or foot pain with palpation. Distal neurovascularly intact. Pulses intact. SKIN: Normal. Dry. No rashes. NEURO: Alert and awake. Speech clear. PSYCH: Normal affect. Cooperative. Course Vital Signs Vital signs: Vital Signs Temperature 36.5 C 08/10/19 12:46 Pulse 81 08/10/19 12:46 Respiratory Rate 18 08/10/19 12:46 Blood Pressure 140/71 08/10/19 12:46 Pulse Oximetry 100 08/10/19 12:46 Temperature 36.5 C 08/10/19 12:46 Temperature Source Temporal Artery Scan 08/10/19 12:46 Pulse 81 08/10/19 12:46 Respiratory Rate 18 08/10/19 12:46 Respiratory Effort Non-Labored 08/10/19 12:49 Blood Pressure 140/71 08/10/19 12:46 Blood Pressure Position Sitting 08/10/19 12:46 Pulse Oximetry 100 08/10/19 12:46 Oxygen Delivery Method Room Air 08/10/19 12:46 Oxygen Flow Rate 0 08/10/19 12:46 Pain Level 5 08/10/19 13:00
--- NOTE | 2019-08-10 14:12 | DI.VRAD_ITS ---
PROCEDURE INFORMATION: Exam: XR Right Hip with Pelvis when Performed Exam date and time: 08/10/2019 1:22 PM Age: 69 years old Clinical indication: Other: Pain; Prior surgery; Surgery date: 6+ months TECHNIQUE: Imaging protocol: XR Right hip with pelvis when performed. Views: 2 or 3 views. COMPARISON: CR XR PELVIS AP 04/17/2019 2:48 PM FINDINGS: Bones/joints: Right hip prosthesis. No acute fracture or evidence of hardware malfunction. Soft tissues: Unremarkable. IMPRESSION: Right hip prosthesis. No acute fracture or evidence of hardware malfunction. Dictated and Authenticated by: Kathryn Ascencio MD. Ordering:SILAS Wahl MD
--- NOTE | 2019-08-10 14:14 | DI.VRAD_ITS ---
PROCEDURE INFORMATION: Exam: XR Right Knee Exam date and time: 08/10/2019 1:25 PM Age: 69 years old Clinical indication: Other: Pain TECHNIQUE: Imaging protocol: XR Right knee. Views: 3 views. COMPARISON: No relevant prior studies available. FINDINGS: Bones/joints: No acute fracture or dislocation. Soft tissues: Meniscal calcification, nonspecific finding. IMPRESSION: No acute abnormality. Dictated and Authenticated by: Kathryn Ascencio MD. Ordering:SILAS Wahl MD
== END 2019-08-10 15:59 | disposition home or self-care (01) ==
PROVIDERS: Emergency Provider Physician Assistant; PCP Neuromusculoskeletal Medicine & OMM
DX: M25.461 Effusion, right knee (principal); M25.551 Pain in right hip
CPT/HCPCS: 73562; 99284; 73502; E0114

== ENCOUNTER → 2019-08-21 10:07 | Outpatient (CLI) | payer MEDICARE, BC, SELFPAY | LOC: DSU 10:07 | PROVIDERS: PCP Neuromusculoskeletal Medicine & OMM; Visit Provider Student in an Organized Health Care Education/Training Program | DX: Z01.818 Encounter for other preprocedural examination (principal); M16.12 Unilateral primary osteoarthritis, left hip | CPT/HCPCS: 36415; 80048; 85027; 86900; 86901 ==

== ENCOUNTER 2019-08-22 16:10 | Outpatient (CLI) | payer MEDICARE, BC, SELFPAY ==
[2019-08-22 16:49] LABS: HCT 33.3 % (36.0-46.0); HGB 10.7 g/dL (12.0-15.5); Mean Corp. HGB Concentration 32.1 g/dL (32.0-36.0); Mean Corpuscular Hemoglobin 28.4 pg (27.0-33.0); Mean Corpuscular Volume 88.3 fL (80-95); Mean Platelet Volume 9.1 fL (8.0-11.0); Platelet Count 434 x1000/uL (130-400); RBC 3.77 m/cumm (4.00-5.20); RBC Distribution Width 15.3 % (11.7-14.6); White Blood Cell Count 5.94 k/cumm (4.4-10.8)
[2019-08-22 17:31] LABS: Anion Gap 10.9 mmol/L (3-11); BUN 11 mg/dL (7-18); CO2 26.1 mmol/L (21.0-32.0); CREATININE 0.79 mg/dL (0.55-1.02); Calcium 9.2 mg/dL (8.5-10.1); Chloride 108 mmol/L (98-107); Glucose 128 mg/dL (74-106); Potassium 4.3 mmol/L (3.5-5.1); Sodium 145 mmol/L (136-145)
== END 2019-08-22 16:30 ==
PROVIDERS: PCP Neuromusculoskeletal Medicine & OMM; Visit Provider Student in an Organized Health Care Education/Training Program
DX: M25.552 Pain in left hip (principal); M16.12 Unilateral primary osteoarthritis, left hip; Z01.818 Encounter for other preprocedural examination; Z01.812 Encounter for preprocedural laboratory examination
CPT/HCPCS: 36415; 80048; 85027; 86850; 86900; 86901

== ENCOUNTER 2019-08-27 05:50 | Inpatient (IN) | payer MEDICARE, BC, SELFPAY ==
[2019-08-21 10:14] VITALS: BP 112/73; PULSE 65; RESP 18; TEMP 36.7; O2SAT 95
--- NOTE | 2019-08-22 17:14 | CMPROGNOTE_ITS ---
Care Management Progress Note PRE-OP ASSESSMENT: [facility] will transport to [facility] for surgery via RCT and reports she will utilize the same service upon discharge. She is currently very active in the community and hopeful for a speedy recovery, but planning on some downtime after surgery. She reports having surgery and having a short term rehab at [facility] in 2008. She reports feeling she is in better physical shape now and prepared for surgery. She reports former anxiety around procedures but shares that has subsided with experience. Roverto reports having a flight of stairs to ascend to her apartment. She reports utilizing crutches previously, as she struggled with FWW. She has MCR, BC/BS for insurance. Her main key person is her sister in [place], Francoise. She is the only person listed on her HIPPA document as well. Shaw Scott is listed as her PCP.
[2019-08-27] VITALS (14 sets, daily range): BP systolic 120–163; BP diastolic 61–79; PULSE 64–92; RESP 11–20; TEMP 36.1–37.9; O2SAT 94–100
[2019-08-27] MEDS: Acetaminophen 500 MG TAB 1000 MG PO ×3 (06:34→20:14)
[2019-08-27] MEDS: Celecoxib 200 MG CAP 400 MG PO (06:35)
[2019-08-27] MEDS: Lactated Ringers 1,000 ML 80 ML IV ×3 (06:45→18:37)
[2019-08-27] MEDS: ceFAZolin 2 GM/50 ML BAG IVPB (08:06)
[2019-08-27] MEDS: Bupivacaine 0.25% Pres-Free 30 ML VIAL (09:42)
[2019-08-27] MEDS: Ketorolac 30 MG/ML VIAL (09:42)
--- NOTE | 2019-08-27 09:52 | DI.RAD_ITS ---
EXAM: XR HIP LT IN OR CLINICAL HISTORY: OSTEOARTHRITIS LEFT HIP. TECHNIQUE: 2D digital imaging was performed. COMPARISON: No exams were available for comparison FINDINGS: Fluoroscopic images were obtained by Dr. Parra in the operating room. A right total hip prosthesi s is partially imaged. There are marked degenerative changes seen in the left hip with joint space n arrowing, subchondral sclerosis and periarticular spurring noted. IMPRESSION: Osteoarthritis of the left hip. Right THR incompletely imaged. Fluoro time: 41.4 seconds DATA REPOSITORY: RADIATION DOSE DELIVERED:
--- NOTE | 2019-08-27 12:59 | NUR.NOTE ---
Nursing Note: Pt A&Ox3, VSS, see worklist. HR reg, LS clear. Dhaval patent. LR @ 80 running. Pt denies pain. Palpable pedal pulse. Pt has decreased sensation @ this time, unable to wiggle left toes. Cap refil brisk. Oriented to room, continue to monitor.
[2019-08-27] MEDS: ceFAZolin 1 GM/50 ML BAG IVPB ×2 (13:23→21:42)
--- NOTE | 2019-08-27 13:52 | PT.INIE ---
Date of service: 08/27/19 Time of Service: 13:52 PT Notes Physical Therapy Inpatient Initial Evaluation Date: 08/27/2019 Referring Doctor: PT Orders: PT CONSULT: Status post Ortho surgery Precautions: Fall. Standard. WBAT on the left LE. Patient Profile/Admitting Diagnosis: Patient is a 69-year-old female with primary osteoarthritis of left hip status post left total hip arthroplasty on postoperative day 0. PMHX: Medical History (Updated 08/20/19 @ 13:56 by Vicki Pate) Anemia Arthritis Degenerative arthritis of spine (Acute) Depression resolved Esophageal reflux resolved Hyperlipidemia (Acute) Nuclear sclerotic cataract of right eye (Resolved) Surgical History (Updated 08/20/19 @ 13:59 by Vicki Pate) Appendectomy Colonoscopy - MAC (08/23/17) H/O exploratory laparotomy (Acute) H/O left wrist surgery (Acute) Reconstructive surgery after suicidal attempt History of hernia repair (Chronic) History of tonsillectomy (Chronic) Pilonidal cyst (Acute) Status post carpal tunnel release of both wrists (Acute) Status post cataract extraction and insertion of intraocular lens of left eye (Resolved 07/13/18) Status post cataract extraction and insertion of intraocular lens of right eye (Resolved 06/29/18) Status post total replacement of right hip (Acute) Vaginal hysterectomy Social History/Home Situation: Patient lives alone in an apartment building here in [place] with 15 steps to enter with a rail on the right side going up. 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 She goes to [employer] twice a week and has a tight knit nikolski of friends who can help her as needed while recovering from her recent surgery. She is independent with all aspects of ADLs without the use of any assistive devices but recently due to increasing pain needed to use her bilateral axillary crutches as well as her single-point cane for all her ambulation performance. Equipment Owned/DME: Bilateral axillary crutches, single-point cane Subjective: Patient is agreeable to PT consult. She is highly motivated and hopes to return home as soon as she is medically cleared. She states that she has +0.25/10 pain on her left hip during ambulation activity that subsided with rest. She did not complain of any lightheadedness, chest pain, and dizziness throughout PT session. She states that having been hindu with going to [employer] twice a week has really helped with how she is doing right now. Objective: General Observation: IV in the right UE. Puentes catheter in place. Mepilex Ag over surgical incision. Mental Status: Alert and oriented x4 Pain: +0.25/10 pain on her left hip ROM: Right Upper Extremity: Shoulder Flexion WFL. Shoulder abduction WFL. Elbow flexion WFL. Wrist flexion WFL. Opening and closing of hand WFL. Left Upper Extremity: Shoulder Flexion WFL. Shoulder abduction WFL. Elbow flexion WFL. Wrist flexion WFL. Opening and closing of hand WFL. Right Lower Extremity: Hip flexion WFL. Hip abduction WFL. Knee flexion WFL. Ankle dorsiflexion WFL. Ankle plantarflexion WFL. Left Lower Extremity: Hip flexion WFL. Hip abduction WFL. Knee flexion WFL. Ankle dorsiflexion WFL. Ankle plantarflexion WFL. Strength: Right Upper Extremity: Shoulder flexors 5/5. Shoulder abductors 5/5. Elbow flexors 5/5. Elbow extensors 5/5. Victim Witness Administrator strong. Left Upper Extremity: Shoulder flexors 5/5. Shoulder abductors 5/5. Elbow flexors 5/5. Elbow extensors 5/5. Victim Witness Administrator strong. Right Lower Extremity: Hip flexors 5/5. Hip abductors 5/5. Knee flexors 5/5. Knee extensors 5/5. Ankle dorsiflexors 5/5. Ankle plantarflexors 5/5. Left Lower Extremity:Hip flexors 4/5. Hip abductors 4/5. Knee flexors 5/5. Knee extensors 4/5. Ankle dorsiflexors 5/5. Ankle plantarflexors 5/5. Sensation: Intact as to pain and pressure on bilateral lower extremities. Bed Mobility/Transfers: Rolling SBA with HOB flat Supine to sit SBA with HOB flat Sit to supine SBA with HOB flat Sit to stand CGA using both hands for support, minimal verbal cues for sequence Stand to sit CGA using both hands for support, minimal verbal cues for sequence Bed to chair CGA using both hands for support, minimal verbal cues for sequence Chair to bed CGA using both hands for support, minimal verbal cues for sequence Gait: Patient tolerated level surface ambulation of 90 feet with a reciprocal step to gait pattern. Decreased step length. Decreased kirk. Patient demonstrated good awareness of her posture. Balance: Static Sitting: Normal Dynamic Sitting: Normal Static Standing: Fair Dynamic Standing: Fair Special Tests: Mobility Limitations Standardized Measure [facility] 6 clicks Basic Mobility Inpatient Short Form: Raw Score: 20 CMS Score: 36% deficit Informed Consent/Education: Patient instructed in purpose of PT consult and plan of care. Patient was educated and trained on seated exercises consisting of hip flexion, knee extension, and ankle DF/PF to be done 10 times at least every hour. Assessment: Difficulty in walking, impaired mobility ADL performance, and weakness to left hip and knee muscle muscle groups resulting from recent surgery. Patient is a 69-year-old highly motivated female with primary osteoarthritis of left hip status post left total hip arthroplasty on postoperative day 0. Patient will have adequate support group that will facilitate recovery from recent surgery. Patient presents with clinical signs and symptoms consistent with current/admitting diagnoses that have resulted to mobility limitations, gait instability, generalized weakness, and impairment of motor control as demonstrated by the following impairment level findings: 1. Decreased strength to L hip major muscle groups 2. Impaired standing balance 3. Impaired activity tolerance Impairments are contributing to the following functional limitations: 1. Dependent bed mobility skills 2. Increased dependence with transfers 3. Inability to safely ambulate without assistive device and physical assistance 4. Increase completion time for mobility ADL performance 5. Increased fall risk 6. Inability to negotiate steps alone safely Patient is assessed as a 22170 moderate complexity based on the following: History: 69-year-old female with past medical history, impairment level findings, functional limitations, and [facility] deficit score of 36% Examination: Demonstrable impairment in strength, balance, and range of motion with underlying impairments and functional limitations as documented above Presentation: Stable Decision Makin moderate complexity Goals: Goals X1 week 1. Supine-Sit independent 2. Sit-Supine independent 3. Sit-Stand independent 4. Stand-Sit independent 5. Bed-Chair independent 6. Chair-Bed independent 7. Independent gait on level surface with use of least restrictive device for at least 300 feet without report of pain nor dyspnea 8. Independent stair negotiation while holding onto bilateral rails for at least 15 steps without report of pain nor dyspnea 9. Independent with home exercise program 10. Good static and dynamic standing balance/tolerance Plan of Care/Treatment Plan: 1-2x/day, 7 days/week x 1 week. Plan of care has been reviewed with the CYTOLOGY SUPERVISOR providing the service under Physical Therapy direction. Initiate Physical Therapy intervention for strengthening, bed mobility, transfers, gait, stairs, balance training, use of assistive device. DISCHARGE RECOMMENDATIONS: Patient will benefit from the use of a front wheeled walker at discharge destination. May benefit from skilled physical therapy services according to orthopedic surgeon's timeline recommendations. Patient will be educated and trained on home exercise program per TKA exercise protocol in preparation for outpatient physical therapy services. TREATMENT CODE/TIME: 17053 ? 25 minutes, [id number] [id number] x 23 minutes beginning at 13:52 PM. Thank you very much for this referral. Juanita Dinero PT, DPT, CLT [facility] [place], [place]
[2019-08-27] MEDS: Aspirin E.C. 81 MG TABEC PO (20:14)
[2019-08-27] MEDS: Celecoxib 200 MG CAP PO (20:15)
[2019-08-27] MEDS: Calcium Carbonate 1.5 GM TAB PO (20:15)
--- NOTE | 2019-08-27 20:37 | ROE_ITS ---
Date of service: 08/27/19 Time of Service: 10:38 Operative Note Operative Note DATE OF PROCEDURE: 08/27/19 PRE-OP DIAGNOSIS: Left Hip Osteoarthritis POST-OP DIAGNOSIS: same PROCEDURE: Left Anterior Total Hip Arthroplasty SURGEON: Quang Parra PRODUCTION ADMINISTRATIVE ASSISTANT: Gloria Bowen ANESTHESIA: spinal ESTIMATED BLOOD LOSS: 300 PATHOLOGY: none sent COMPLICATIONS: None Patient was transported to: PACU Patient's condition: stable Implants: 1. Depuy Berwick Acetabular Component, 48mm 2. Depuy Acetabular Liner, [id number] 3. Depuy Corail Coxa Vara Femoral Stem, Size 12 4. Depuy Altrx Ceramic Femoral Head, Size 32+5mm Indications: I have seen Roverto in clinic for symptoms of hip arthritis, confirmed with radiographic findings. She has exhausted nonoperative methods and was having significant limitations in daily function and desired better function and less pain. I discussed the technical details of a hip replacement. I explained the risks of the procedure to include, but not limited to, bleeding, infection, pain, stiffness, fracture, damage to nerves and vessels, damage to muscles and tendons, loosening, instability, leg length inequality, need for repeat procedure, blood clot and cardiopulmonary demise. Despite these risks, she elected to proceed. Findings: There was significant signs of arthritis throughout the hip. Procedure Description: Roverto was greeted in the preoperative holding area where the correct side was identified and marked. The consent was reviewed with the patient and signed. The history and physical was updated. All questions were answered. She was taken back to the operating room. A spinal anesthestic was then administered. The patient was placed into the supine position on the operating room table. The patient was then positioned onto the ARCH table. Both feet were wrapped with Webrill cotton wrap along with Coban. The feet were placed in specialized boots for the ARCH table, well seated within the boot and secured. SCDs were applied. The patient was then slid down onto a peroneal post and the nonoperative leg was secured in a leg escobar attached to the table. The operative side was placed into the ARCH table attachment and bed height and po sitioning was secured. A preoperative AP pelvis was obtained to serve as a reference for determining leg lengths. Prophylactic antibiotics in the form of Cefazolin were administered. 1g of Tranxemic Acid was given intravenously within 30 minutes of incision. The left leg was then prepped with Chloraprep and draped in a standard fashion. A second prep was performed prior to placing the final shower-curtain type drape with Iodine impregnated skin protection. A timeout to confirm correct identity, side and site, procedure, allergies, anesthesia, and medical concerns was performed. An obliquely oriented incision was made starting lateral to the ASIS and running distal over the Tensor Fascia Rhiannon (TFL) muscle belly toward the fibular head, approximately 10cm. The skin and soft tissue was dissected sharply, through Jerardo?s fascia, and to the fascia of the TFL. With the fascia and superior border of the IT band identified, the fascia was incised with a new knife just above any perforators from the IT band. The TFL muscle belly was bluntly dissected away from the fascia and moved laterally. The fat between TFL and rectus was identified to ensure the dissection was not within the TFL. Blunt dissection created space between abductors and the capsule and retractor was placed over the lateral femoral neck. The fibers of the rectus femoris tendon were identified and these were freed from the anterior capsule. A second cobra retractor was placed around the medial femoral neck. The TFL was further retracted laterally to show the deep fascia. Careful dissection through this layer identified three main crossing vessels of the lateral femoral circumflex. These were cauterized in multiple locations and then cut without any noticeable bleeding. The TFL was further released bluntly from the deep fascia to expose anterior hip capsule and fat The Elroy orthopaedic retractor was then placed beneath the TFL and against sartorius and medial soft tissues to protect and retract the soft tissues. A T-capsulotomy was then performed starting at the superior lateral acetabulum and moving distally to the intertrochanteric ridge. These capsular flaps were tagged with a No. 1 Ethibond and elevated from within. The capsular flaps were released to the shoulder of the lateral neck and to the lesser trochanter to give excellent visualization of the proximal femur. A neck osteotomy was performed using an oscillating saw based on preoperative templates. This cut started in the shoulder and of the lateral neck and exited medially. The saw was at all times directed medially to avoid injury to the greater trochanter. 6cm of traction was applied to the leg and the osteotomy opened. The femoral head was removed with a corkscrew, making sure to protect the TFL on its exit. This was measured on the back table to determing the starting reamer size. Portions of the rectus obscuring visualization were minimally elevated off the superior acetabulum. An anterior retractor was placed over the anterior wall between capsule and labrum and held with the Gripper retraction system. A posterior retractor was placed similarly. This provided excellent visualization. The contents of the cotyloid fossa were removed with electrocautery and the labrum was removed with a knife. There was a notable floor osteophyte. There was significant chondromalacia of the super ior acetabulum. Acetabular reaming began with a 45mm reamer. This first reaming was directed anterior to posterior and medial to get down to the true floor. This was inspected and reamed until the true floor was reached. I then reamed sequentially up to a 47mm reamer where good fit was obtained. The larger reamers were oriented based on anatomical reference of the anterior and lateral contreras to ensure proper abduction and anteversion. Positioning and size was confirmed with the fluoroscopy. A 48mm Depuy Berwick acetabular component was selected. The acetabulum was reamed around the periphery with the selected acetabular size to prevent a rim fit. The deep tissues were irrigated. The acetabular component was then impacted in a position of about 40-45 degrees of abduction and 15-20 degrees of anteversion, using the patient?s anatomy as the ultimate landmark. Fluoroscopy was used to confirm this. There was excellent founder and president of the acetabular component and the inserting handle was removed. The acetabular liner, Depuy [id number] polyethylene liner, was inserted and lined up with the tines of the acetabular component. There was no soft tissue interposition. The liner was then impacted into position and confirmed to be well-seated. A portion of the edmundo-articular cocktail was then injected around the acetabulum into the capsule and periosteum. This cocktail consisted of 50cc of 0.25% Bupivicaine and 20cc of Exparel, expanded to a total of 120cc. Traction was released from the femur. The leg was rotated to 120 degrees. Any remaining medial capsule was released until the lesser trochanter was easily palpable. A Sales retractor was placed medially. The lateral capsule was further released into the shoulder to allow access to the greater trochanter. A Sales retractor was placed over the greater trochanter which allowed the trochanter to flip in front of the capsule for excellent exposure. The leg was brought down into maximal extension and 20 degrees of adduction while ensuring there was no impingement on the acetabulum. Any remnant capsule within the trochanter was released. Piriformis and obturator externis were identified and protected. There was excellent access to the proximal femur. The lateral neck remnant was removed with a rongeur. A blunt canal probe was used to identify the canal and trajectory for later broaching. A box osteotome initiated the broach course. A small curved rasp and a curved curette were used to work laterally. Broaching then began with a size 8 Corail broach. This was inserted manually around the trochanter and into the canal before mallet blows. The broach was seated to a few millimeters below the cut level based on the neck cut and the preoperative template. Sequential broaching was continued with the AutoMoneyBack pneumatic broaching device until a tight fit was obtained with good rotational control of the femur. A trial coxa vara neck was inserted along with a +1 trial head. The leg was brought out of extension and adduction and then reduced with traction and internal rotation. The leg was stable anteriorly in a position of 30 degrees of extension and 90 degrees of external rotation. Fluoroscopy was used to ensure there was no fracture and the stem was seated well. Leg lengths were checked with an AP pelvis and pelvic reference points. Joint point navigational system was used to assist with femoral positioning for length and offset. A +5 head was most appropriate. Once content with the desired offset and leg lengths, the leg was brought back into extension, external rotation and adduction. The periosteum and surrounding tissue was injected with remaining portion of the edmundo-articular cocktail. The proximal femur was irrigated as well as the deep tissues. The Depuy Corail coxa vara stem, size 12, was then manually inserted into the proximal femur making sure to control rotation. It was then malleted into position with light blows, giving breaks to allow bone expansion and decrease risk of fracture. The selected Depuy Altrx Ceramic Head, size 32+5mm, was then placed onto the clean and dry trunnion and secured with impaction onto the tapered fit. The leg was brought back out of extension and adduction and reduced with traction and internal rotation. Stability was confirmed with no shuck at 90 degrees of external rotation and 30 degrees of extension. No impingement through range of motion arc. Final x-ray images were obtained with fluoroscopy to confirm adequate positioning and no intraoperative fracture. The deep tissues were thoroughly irrigated with Irrisept chlorhexadine solution. The second dose of TXA 1g was administered intravenously.The capsule was then reapproximated with the previously placed Ethibond sutures. The TFL fascia was finally closed with a No. 2 Stratafix, barbed suture. Deep tissues were then reapproximated with 0 Vicryl and a running 2-0 Vicryl. The skin was closed with a running 4-0 Monocryl in a subcuticular fashion. This was reinforced with skin glue. A Mepilex silver dressing was applied. At the end of the case, all counts were correct. Roverto was transferred to the hospital bed without difficulty and suffering no apparent complication. Roverto has a good prognosis. Physical therapy will start today and without restrictions, weight-bearing as tolerated. Aspirin 81mg BID will be used for DVT prophylaxis.
[2019-08-27] MEDS: Zolpidem 6.25 MG TABCR 12.5 MG PO (21:39)
[2019-08-28 04:17] VITALS: BP 138/71; PULSE 74; RESP 19; TEMP 36.8; O2SAT 97
[2019-08-28] MEDS: ceFAZolin 1 GM/50 ML BAG IVPB (06:25)
--- NOTE | 2019-08-28 07:32 | DSE_ITS ---
Date of service: 08/28/19 Time of Service: 07:33 DS: Diagnosis Discharge Diagnosis (1) Primary osteoarthritis of left hip: Status: Chronic Discharge Plan Disposition Patient Disposition: HOME W/HOME HEALTH SERVICE Condition: Good Discharge Details Reason For Visit: LEFT HIP DJD Admit Date/Time: 08/27/19 05:50 Admit Provider: Quang Parra Attending Provider: Quang Parra Primary Care Provider: [facility] Hospital Course: Patient was admitted to the medical/surgical floor following the procedure. It was tolerated well without any notable medical, surgical, or anesthetic complications. Mobilization began postoperatively. The ruth catheter was removed and voiding spontaneously. Vitals were stable. Physical therapy worked with the patient and was cleared for discharge home. No acute medical issues. Home Meds and New Rx's Prescriptions: New celecoxib 200 mg capsule 200 mg PO BID PRN (Reason: pain) Qty: 60 RF: 1 aspirin 81 mg tablet,delayed release (DR/EC) 81 mg PO BID Qty: 60 RF: 0 acetaminophen 500 mg tablet 1,000 mg PO Q8H PRN (Reason: pain) Qty: 90 RF: 3 pantoprazole 40 mg tablet,delayed release (DR/EC) 40 mg PO DAILY Qty: 30 RF: 0 oxycodone 5 mg tablet 5 mg PO Q6H PRN PRNQty: 12 RF: 0 Continued ezetimibe [Zetia] 10 MG tablet 10 mg PO DAILY RF: 0 calcium carbonate [Calcium 600] 600 MG tablet 600 mg PO BID RF: 0 iron 18 MG tablet 25 mg PO DAILY RF: 0 zolpidem 12.5 MG tablet,ext release multiphase 12.5 mg PO HS PRN PRNRF: 0 multivitamin [Daily Multi-Vitamin] 1 EACH tablet 1 ea PO DAILY RF: 0 Discontinued acetaminophen [Tylenol] 325 mg Capsule 975 mg PO PRN PRNRF: 0 ibuprofen [IBU-200] 200 mg Tablet 600 mg PO Q6H PRNRF: 0 Discharge Instructions Additional Instructions: Dr. Parra?s Total Hip Discharge Instructions Activity: The most important activity is to walk. You should try to take short walks a few times a day. You have no restrictions on movement or positioning, but do not try to force what you do. You will find some stiffness and weakness with hip flexion (lifting your knee). Do not try to strengthen this too early, continue to practice walking and stairs and this will come. - You will have home health physical therapy to assist in your recovery and ADLs. - You should wear the NINFA hose on both legs for 2 weeks. Dressing: Keep the surgical dressing in place for at least one week. After the first week it may be removed and replace with light gauze and tape or nothing. It may get wet after 3 days but avoid soaking the dressing. Some prefer to cover it with Clingwrap or the like to not worry about it. If it gets wet, just lightly pat dry. It is important to always keep some gauze between skin folds, especially when you are sitting. Spend some time with the wound exposed when you are lying flat as the incision does wrinkle onto itself. Medications: - You should take Tylenol and an anti-inflammatory Celebrex as your primary pain control medications - You have been prescribed a stronger pain medication Oxycodone for breakthrough pain, take as needed as prescribed. - You have also been prescribed a stomach acid reduction agent Pantoprozole to help reduce stomach acid and reflux. - You will be taking Aspirin 81mg twice a day for DVT prevention unless instructed otherwise. - If you have constipation you should take Colace or Miralax (both [id number]). It takes most people 3-4 days to have a bowel movement. Follow-up: 2 weeks 1. Encounter Date and Reason I certify that ROVERTO PINO was seen by Quang Parra MD on 08/28/19 and that I had a [id number] encounter with this patient that meets the physician face to face encounter requirements. 2. Clinical Findings Supporting Skilled Need and Homebound Status I certify that home health services are medically necessary, include either intermittent long term and/or physical/speech therapy, and that this patient is homebound in that absences from the home require considerable and taxing effort and are infrequent or of short duration, or are attributable to the need to receive medical care. [X] (a) Attached documentation from encounter provides clinical findings supporting skilled need and homebound status (including what assistance patient requires to leave the home). The encounter with the patient was in whole, or in part, for the following medical condition, which is the primary reason for home health care: LEFT HIP DJD [facility]: Physical Therapy: Roverto would benefit from physical therapy at home to assist in strengthening and improving mobility and ADLs. She is s/p left anterior total hip arthroplasty and has notable weakenss, motion restriction, and ambulatory deficiency. Speech Therapy: Homebound: Roverto is unable to leave her home unassisted due to weakness and recent surgery. 3. Certification and Authentication I certify that I composed the above information based on my clinical judgement relating to this patient's medical condition and, if applicable, clinical findings communicated to me by the NPP or inpatient physician who performed the Home Health Referral. All further orders will be obtained through Dr. Parra. Referrals: Quang Parra MD [ [facility] STAFF PHYSICIAN] - Activity:: Activity as Tolerated Equipment/Supplies:: Walker Diet:: As Tolerated Discharge Orders Discharge Orders: Discharge Order (Routine); Ordered 08/28/19 Ordered By: Quang Parra DS: Summary Status at Discharge Functional status at discharge: uses cane/walker Overall status at discharge: patient is progressing back to baseline Mental Status: mental status grossly normal Speech and Movement: speech and movement normal Mood: congruent mood Affect: normal affect Exam Psych Mental Status: mental status grossly normal Speech and Movement: speech and movement normal Mood: congruent mood Affect: normal affect DS: Data Vitals/I&O Vitals and I&O: Vital Signs Temperature 36.8 C 08/28/19 04:17 Temperature Source Tympanic 08/28/19 04:17 Pulse 74 08/28/19 04:17 Pulse Rhythm Regular 08/28/19 03:40 Respiratory Rate 19 08/28/19 04:17 Respiratory Effort Non-Labored 08/28/19 03:40 Respiratory Depth Normal 08/28/19 03:40 Respiratory Pattern Normal 08/28/19 03:40 Blood Pressure 138/71 08/28/19 04:17 Pulse Oximetry 97 08/28/19 04:17 Respiratory End-tidal CO2 27 08/27/19 11:05 Oxygen Delivery Method Room Air 08/27/19 23:51 Oxygen Flow Rate 0 08/27/19 23:51 Pain Level 0 08/27/19 23:51 Comment 08/27/19 14:58 Intake & Output 08/27/19 08/27/19 08/28/19 11:59 23:59 11:59 Intake Total 1570 / 3331.334 1761.334 / 3331.334 Output Total 1000 / 2050 1050 / 2050 400 / 400 Balance 570 / 1281.334 711.334 / 1281.334 -400 / -400 Weight 64.2 kg Intake: IV 1570 / 2851.334 1281.334 / 2851.334 Oral 480 / 480 Output: Urine 700 / 1750 1050 / 1750 400 / 400 Estimated Blood Loss 300 / 300 Other: Urine Color Pale Pale Yellow Urine Appearance Clear Clear Clear Urine Odor None Comment PACU. Emesis Description None Voiding Methods Toilet Toilet [facility] Medical History Anemia Arthritis Degenerative arthritis of spine (Acute) Depression resolved Esophageal reflux resolved Hx of difficult intubation (Acute) I was difficult to initubate because of my bone structure, a torus bone grownth I had a procedure during the whole hepatitis incident in the s, that I was so relaxed that I flat-lined Alton Delgado aware of this for anesthesia had consultation with pt. 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 Hx of rheumatic fever (Acute) PT. STATES WHEN SHE WAS 11 SHE HAD RF, AND WAS ON PROPHYLACTIC (BICILLIN) ABX X 20 YEARS Hyperlipidemia (Acute) Nuclear sclerotic cataract of right eye (Resolved) Surgical History Appendectomy Colonoscopy - MAC (08/23/17) H/O exploratory laparotomy (Acute) H/O left wrist surgery (Acute) Reconstructive surgery after suicidal attempt History of hernia repair (Chronic) History of hip replacement (Chronic) 2009 right hip with History of tonsillectomy (Chronic) Pilonidal cyst (Acute) Status post carpal tunnel release of both wrists (Acute) Status post cataract extraction and insertion of intraocular lens of left eye (Resolved 07/13/18) Status post cataract extraction and insertion of intraocular lens of right eye (Resolved 06/29/18) Status post total replacement of right hip (Acute) Vaginal hysterectomy Social History Smoking/Tobacco Use Status: Former Tobacco Use Quit Date: 06/19/78 Tobacco: How many years used: 15 Alcohol Intake: never Drug use: Never Current gender identity: female Do you feel safe at home: Yes Do you feel safe in your relationship?: Yes Female Reproductive History Menstrual control method: progestin IUCD
[2019-08-28 07:43] VITALS: BP 159/76; PULSE 84; RESP 17; TEMP 37.2; O2SAT 99
[2019-08-28] MEDS: Multivitamin TAB 1 TAB PO (08:32)
[2019-08-28] MEDS: Pantoprazole 40 MG TABCR PO (08:33)
[2019-08-28] MEDS: Ezetimibe 10 MG TAB PO (08:33)
[2019-08-28] MEDS: Celecoxib 200 MG CAP PO (08:33)
[2019-08-28] MEDS: Aspirin E.C. 81 MG TABEC PO (08:33)
[2019-08-28] MEDS: oxyCODONE 5 MG TAB PO (08:33)
[2019-08-28] MEDS: Calcium Carbonate 1.5 GM TAB PO (08:33)
[2019-08-28] MEDS: Acetaminophen 500 MG TAB 1000 MG PO (08:33)
--- NOTE | 2019-08-28 08:45 | PDOC.CMDIS ---
LACE Index Scoring Tool - Questions: Length of Stay (in days): 1 Acuity (Admit via E.D.?): Yes E.D. Visits: 1 - Answers: Total Score: 5 Risk of Readmission: Low Risk Care Management Discharge Reason for Hospitalization: Left Hip DJD Discharge Plan: Roverto will return home when ready per MD. She will follow up with her Dr. Parra and PCP as well as her plan of care including activity and medication instructions. She will transport home via RCT coordinated by this jingle writer. Patient/Family Education Needs: Review discharge instructions, discuss Ask Me Three. Services Needed at Discharge: DME Agency (FWW through [facility] [employer]), Transportation (R[facility] coordinated by CM)
--- NOTE | 2019-08-28 10:36 | PT.INTREAT ---
Date of service: 08/28/19 Time of Service: 10:36 PT Notes Visit Reasons: LEFT HIP DJD 08/28/2019 SUBJECTIVE: Pt stating she is doing well today. She has been completing 20 reps of all of her exercises hourly this morning and is feeling quite good. OBJECTIVE: Pt seated EOB. She is dressed and agreeable to PT treatment. TRANSFERS Sit to stand: S Stand to sit: S GAIT Device: FWW/SPC for short distance Weight bearing: AT L Assist: S Distance 150'x2 STAIRS: 12-4 steps, 8-6 steps, 1 Rail, 1 SPC, SBA, step to pattern. THEREX: Review HEP. See flow sheet. ASSESSMENT: Pt tolerates PT well today with increase in gait distance and stair management. She is managing her pain well and has a good understanding of her HEP. PLAN: Pt to be discharged home. See discharge summary. Treatment time: 25 minutes [id number] Mar Buck, KRISTIAN
--- NOTE | 2019-08-28 16:06 | PT.INDS ---
Date of service: 08/28/19 PT Notes Visit Reasons: LEFT HIP DJD Inpatient Physical Therapy Discharge Summary Dates: 08/28/2019 Dates of Service: 08/27/2019 through 08/28/2019 This is a clinical summary of care provided on the duration of dates listed above. No charge was made in the completion of this documentation. Referring Doctor: PT Orders: PT CONSULT: Status post Ortho surgery Precautions: Fall. Standard. WBAT on the left LE. Patient Profile/Admitting Diagnosis: Patient is a 69-year-old female with primary osteoarthritis of left hip status post left total hip arthroplasty on postoperative day 1. PMHX: Medical History (Updated 08/20/19 @ 13:56 by Vicki Pate) Anemia Arthritis Degenerative arthritis of spine (Acute) Depression resolved Esophageal reflux resolved Hyperlipidemia (Acute) Nuclear sclerotic cataract of right eye (Resolved) Surgical History (Updated 08/20/19 @ 13:59 by Vicki Pate) Appendectomy Colonoscopy - MAC (08/23/17) H/O exploratory laparotomy (Acute) H/O left wrist surgery (Acute) Reconstructive surgery after suicidal attempt History of hernia repair (Chronic) History of tonsillectomy (Chronic) Pilonidal cyst (Acute) Status post carpal tunnel release of both wrists (Acute) Status post cataract extraction and insertion of intraocular lens of left eye (Resolved 07/13/18) Status post cataract extraction and insertion of intraocular lens of right eye (Resolved 06/29/18) Status post total replacement of right hip (Acute) Vaginal hysterectomy Social History/Home Situation: Patient lives alone in an apartment building here in [place] with 15 steps to enter with a rail on the right side going up. 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 She goes to [employer] twice a week and has a tight knit poarch of friends who can help her as needed while recovering from her recent surgery. She is independent with all aspects of ADLs without the use of any assistive devices but recently due to increasing pain needed to use her bilateral axillary crutches as well as her single-point cane for all her ambulation performance. Equipment Owned/DME: Bilateral axillary crutches, single-point cane Subjective: NT. See most recent [employer] [employer] notes. Objective: General Observation: NT. See most recent PRES[employer]SULT[employer] notes. Mental Status: Alert and oriented x4 Pain: NT. See most recent PRESIDENT [employer]SULTING notes. ROM: Right Upper Extremity: Shoulder Flexion WFL. Shoulder abduction WFL. Elbow flexion WFL. Wrist flexion WFL. Opening and closing of hand WFL. Left Upper Extremity: Shoulder Flexion WFL. Shoulder abduction WFL. Elbow flexion WFL. Wrist flexion WFL. Opening and closing of hand WFL. Right Lower Extremity: Hip flexion WFL. Hip abduction WFL. Knee flexion WFL. Ankle dorsiflexion WFL. Ankle plantarflexion WFL. Left Lower Extremity: Hip flexion WFL. Hip abduction WFL. Knee flexion WFL. Ankle dorsiflexion WFL. Ankle plantarflexion WFL. Strength: Right Upper Extremity: Shoulder flexors 5/5. Shoulder abductors 5/5. Elbow flexors 5/5. Elbow extensors 5/5. Student Finance Advisor strong. Left Upper Extremity: Shoulder flexors 5/5. Shoulder abductors 5/5. Elbow flexors 5/5. Elbow extensors 5/5. Student Finance Advisor strong. Right Lower Extremity: Hip flexors 5/5. Hip abductors 5/5. Knee flexors 5/5. Knee extensors 5/5. Ankle dorsiflexors 5/5. Ankle plantarflexors 5/5. Left Lower Extremity:Hip flexors 4/5. Hip abductors 4/5. Knee flexors 5/5. Knee extensors 4/5. Ankle dorsiflexors 5/5. Ankle plantarflexors 5/5. Sensation: Intact as to pain and pressure on bilateral lower extremities. Bed Mobility/Transfers: Rolling supervision Supine to sit supervision Sit to supine supervision Sit to stand supervision Stand to sit supervision Bed to chair supervision Chair to bed supervision Gait: Patient tolerated level surface ambulation of 150 feet x 2 with a reciprocal step to gait pattern. Tolerated twelve 4 inch steps and eight 6 inch steps while holding onto one rail and single-point cane requiring SBA. Balance: Static Sitting: Normal Dynamic Sitting: Normal Static Standing: Fair Dynamic Standing: Fair Assessment: Patient demonstrated improvement in mobility ADL performance for this episode of care. PT assessment findings on evaluation included difficulty in walking, impaired mobility ADL performance, and weakness to left hip and knee muscle muscle groups resulting from recent surgery. Patient is a 69-year-old highly motivated female with primary osteoarthritis of left hip status post left total hip arthroplasty on postoperative day 1. Patient will have adequate support group that will facilitate recovery from recent surgery. Patient presented with clinical signs and symptoms consistent with current/admitting diagnoses that have resulted to mobility limitations, gait instability, generalized weakness, and impairment of motor control as demonstrated by the following impairment level findings: 1. Decreased strength to L hip major muscle groups 2. Impaired standing balance 3. Impaired activity tolerance Impairments contributed to the following functional limitations: 1. Dependent bed mobility skills 2. Increased dependence with transfers 3. Inability to safely ambulate without assistive device and physical assistance 4. Increase completion time for mobility ADL performance 5. Increased fall risk 6. Inability to negotiate steps alone safely Goals: Goals X1 week 1. Supine-Sit independent NOT MET 2. Sit-Supine independent NOT MET 3. Sit-Stand independent NOT MET 4. Stand-Sit independent NOT MET 5. Bed-Chair independent NOT MET 6. Chair-Bed independent NOT MET 7. Independent gait on level surface with use of least restrictive device for at least 300 feet without report of pain nor dyspnea NOT MET 8. Independent stair negotiation while holding onto bilateral rails for at least 15 steps without report of pain nor dyspnea NOT MET 9. Independent with home exercise program NOT MET 10. Good static and dynamic standing balance/tolerance NOT MET DISCHARGE RECOMMENDATIONS: Patient will benefit from the use of a front wheeled walker at discharge destination. May benefit from skilled physical therapy services according to orthopedic surgeon's timeline recommendations. Patient will be educated and trained on home exercise program per TKA exercise protocol in preparation for outpatient physical therapy services. TREATMENT CODE/TIME: PR. Thank you very much for this referral. Juanita Dinero PT, DPT, CLT [facility] [place], [place]
== END 2019-08-28 11:53 | disposition home health service (06) | DRG 470 ==
LOC: PDS 05:54 → MS 12:58
PROVIDERS: Admitting Provider Student in an Organized Health Care Education/Training Program; PCP Neuromusculoskeletal Medicine & OMM; Visit Provider Student in an Organized Health Care Education/Training Program
PROC: 0SRB04A Replacement of Left Hip Joint with Ceramic on Polyethylene Synthetic Substitute, Uncemented, Open Approach (ICD-10-PCS; CPT 27130; principal; 2019-08-27 07:30)
DX: M16.12 Unilateral primary osteoarthritis, left hip (principal); M25.552 Pain in left hip; Z96.642 Presence of left artificial hip joint; M47.896 Other spondylosis, lumbar region; E78.5 Hyperlipidemia, unspecified
CPT/HCPCS: 27130; 97162; 97530; NC; 73501; J0690; J1100; J1885; J2001; J2250; J2370; J2405; J2704

== ENCOUNTER 2019-09-12 11:37 | Outpatient (CLI) | payer MEDICARE, BC, SELFPAY ==
--- NOTE | 2019-09-12 09:45 | DI.RAD_ITS ---
EXAM: XR HIP LT COMPLETE AP PELVIS CLINICAL HISTORY: 1st post op. TECHNIQUE: 2D digital imaging was performed. COMPARISON: XR hip LT complete AP pelvis from 11/09/2018 XR HIP LT IN OR from 08/27/2019 FINDINGS: BONES: There are postsurgical changes of a recent left total hip replacement. There is no evidence o f hardware failure. The bones are intact. There is an old right total hip replacement. No bony dipika tructive lesion is seen. JOINTS: No dislocation present. SOFT TISSUE: Normal. Atherosclerosis. IMPRESSION: Stable bilateral THR. DATA REPOSITORY: RADIATION DOSE DELIVERED:
== END 2019-09-12 11:57 ==
PROVIDERS: PCP Neuromusculoskeletal Medicine & OMM; Visit Provider Student in an Organized Health Care Education/Training Program
DX: Z96.643 Presence of artificial hip joint, bilateral (principal); Z47.1 Aftercare following joint replacement surgery; Z96.642 Presence of left artificial hip joint
CPT/HCPCS: 73502

== ENCOUNTER → 2019-10-03 10:28 | Outpatient (BNVA) | payer MEDICARE, BC, SELFPAY | PROVIDERS: PCP Neuromusculoskeletal Medicine & OMM; Referring Provider Neuromusculoskeletal Medicine & OMM; Visit Provider Student in an Organized Health Care Education/Training Program | DX: Z47.1 Aftercare following joint replacement surgery; Z96.642 Presence of left artificial hip joint ==

== ENCOUNTER 2019-11-07 02:12 | Outpatient (CLI) | payer MEDICARE, BC, SELFPAY ==
--- NOTE | 2019-11-07 | DI.MAMMO_ITS ---
EXAM: MG MAMMO SCREENING CLINICAL HISTORY: SCREENING, Z12.31 TECHNIQUE: Bilateral full field digital CC and MLO mammographic images were obtained with 3D tomosyn thesis and utilizing computer aided detection (CAD). COMPARISON: Available for comparison. FINDINGS: Masses/Architectural Distortion: None seen. Microcalcifications: No suspicious pleomorphic-type are seen. Skin Thickening/Nipple Retraction: None. IMPRESSION: 1. No significant interval change with no specific features of malignancy noted. 2. Unless there is more urgent need, screening mammography is recommended, as per [employer] guidelines. BI-RADS Category 1 - Negative Breast Density - Category C - Heterogeneously dense The mammogram demonstrates the patient's breast tissue is dense. Dense breast tissue is very common a nd is not abnormal but dense breast tissue can make it harder to find cancer on a mammogram. Also, de nse breast tissue may increase their breast cancer risk. This information about the [facility] report was provided to the patient to raise their awareness. Use this report when you speak wi th the patient about their risks for breast cancer, which includes their family history. At that time , you may recommend for more screening tests (Ultrasound or MRI) as they might be useful based on the ir risk. A negative radiographic report should not delay biopsy if a dominant or clinically suspicious mass is present. Up to ten percent of cancers are not identified on mammography. A negative report may reinforce clinical impression. Adenosis and dense breasts may obscure an underlying neoplasm. False positive reports average 6 to 10%. Patient will receive a letter notifying them of these results.
== END 2019-11-07 02:32 ==
PROVIDERS: PCP Neuromusculoskeletal Medicine & OMM; Visit Provider Neuromusculoskeletal Medicine & OMM
DX: Z12.31 Encounter for screening mammogram for malignant neoplasm of breast (principal)
CPT/HCPCS: 77063; 77067

== ENCOUNTER 2020-02-15 08:22 | Emergency (ER) | payer MEDICARE, BC, SELFPAY ==
[2020-02-15 08:35] VITALS: BP 172/63; PULSE 87; RESP 16; TEMP 36.5; O2SAT 98
[2020-02-15 08:36] LABS: Bilirubin Negative (Negative); Blood Moderate (Negative); Clarity Sl Cloudy (Clear); Glucose Negative (Negative); Ketones Negative (Negative); Leukocyte Esterase Small (Negative); Nitrite Positive (Negative); Urobilinogen 0.2 EU/dL (Up TO 0.2)
[2020-02-15 08:46] LABS: Bacteria Many HPF (Negative); C & S Indicated? Yes; Casts Negative LPF (Negative); Crystals Negative HPF (Negative); Epithelial Cells Negative HPF (Negative); Mucus Negative (Negative); RBC >50 HPF (0-2); WBC >50 HPF (0-5)
[2020-02-15 08:53] VITALS: BP 148/69; PULSE 87; RESP 16; TEMP 36.5; O2SAT 98
--- NOTE | 2020-02-15 08:54 | W.ED.GENAD ---
Discharge Plan Disposition Patient Disposition: HOME Condition: Good Discharge Details Chief Complaint: Urinary Clinical Impression: UTI (urinary tract infection) Primary Care Provider: Shaw Scott ED Provider: Nathalia Pearson Home Meds and New Rx's Prescriptions: New phenazopyridine [Pyridium] 100 mg tablet 100 mg PO TID PRN (Reason: pain) Qty: 6 RF: 0 cephalexin [Keflex] 500 mg capsule 500 mg PO BID Qty: 10 RF: 0 Continued ezetimibe [Zetia] 10 MG tablet 10 mg PO DAILY RF: 0 calcium carbonate [Calcium 600] 600 MG tablet 600 mg PO BID RF: 0 iron 18 MG tablet 25 mg PO DAILY RF: 0 zolpidem 12.5 MG tablet,ext release multiphase 12.5 mg PO HS PRN PRNRF: 0 multivitamin [Daily Multi-Vitamin] 1 EACH tablet 1 ea PO DAILY RF: 0 Discharge Instructions Instructions: Urinary Tract Infection in Women (ED) Additional Instructions: Please encourage water intake. You may use Pyridium as prescribed help symptomatic management. Please take the Keflex as prescribed for infection. Even if symptoms improve, please take the entire course. If you develop fever/chills, back pain or other new/worsening symptom please seek care urgently once again. Otherwise, please follow-up with primary care as needed. Referrals: Shaw Scott [Primary Care Provider] - Medical Decision Making Patient is a pleasant 69-year-old female presenting today with concern for UTI. She reports for the past 3 days she has had increased frequency, urgency and dysuria. Describes a burning sensation at the urethral opening with voiding. Denies any back pain. No change in bowel habits. Denies abdominal pain. No fevers chills. Denies any vaginal discharge. Last UTI was 20 years ago. On exam, patient appears nontoxic. She is no CVA tenderness, no abdominal tenderness. UA significant for blood, nitrites, bacteria. This is a clean-catch and has been sent for culture. Patient will be treated with Keflex and Pyridium. Return precautions discussed. She will follow-up with primary care as needed. All the questions and concerns were addressed and she is in agreement this plan. HPI General Mode of arrival: ambulatory. Date/Time Provider Initiated Documentation: 02/15/20 08:23. Limitations to Documentation: no limitations. Information obtained by: patient and RN notes reviewed. History of Present Illness 69 year old F presents to the emergency department with the chief complaint of dysuria, increased frequency/urgency, described as moderate, with intensity rated at 7. Quality is described as burning, and is localized to the genitals (reports urethral burning). Patient reports no radiation. Patient started experiencing this day(s) (3) and it has been constant. No relieving factors improve symptom(s), No exacerbating factors reported . Patient notes denies fever/chills, loss of appetite, nausea/vomiting and rash. Patient did receive the following treatments prior to arrival, none Related Data Home Medications Medication Instructions Recorded Confirmed ezetimibe [Zetia] 10 mg PO DAILY tab-cap 02/25/13 02/15/20 calcium carbonate [Calcium 600] 600 mg PO BID 08/06/13 02/15/20 iron 25 mg PO DAILY 08/06/13 02/15/20 zolpidem 12.5 mg PO HS PRN PRN 08/06/13 02/15/20 multivitamin [Daily Multi-Vitamin] 1 ea PO DAILY 01/28/14 02/15/20 cephalexin [Keflex] 500 mg PO BID #10 cap 02/15/20 phenazopyridine [Pyridium] 100 mg PO TID PRN #6 tab 02/15/20 Previous Rx's Medication Instructions Recorded cephalexin [Keflex] 500 mg PO BID #10 cap 02/15/20 phenazopyridine [Pyridium] 100 mg PO TID PRN #6 tab 02/15/20 Allergies Allergy/AdvReac Type Severity Reaction Status Date / Time No Known Allergies Allergy Unverified 02/15/20 08:39 General Stated Complaint: Urinary RUSTAM: 3 Review of Systems Constitutional Constitutional: Reports as per HPI, Denies chills, Denies fever(s) and Denies poor appetite Cardiovascular Cardiovascular: Denies chest pain Respiratory Respiratory: Denies cough Gastrointestinal Gastrointestinal: Denies abdominal pain, Denies change in bowel habits, Denies nausea and Denies vomiting Genitourinary Genitourinary: Reports as per HPI Musculoskeletal Musculoskeletal: Reports as per HPI and Denies back pain Integumentary/Breasts Skin/Breast: Reports as per HPI and Denies rash [facility] Medical History (Updated 02/15/20 @ 08:53 by ELIE Cuadra) Anemia Arthritis Degenerative arthritis of spine (Acute) Depression resolved Esophageal reflux resolved Hx of difficult intubation (Acute) I was difficult to initubate because of my bone structure, a torus bone grownth I had a procedure during the whole hepatitis incident in the 70's, that I was so relaxed that I flat-lined Alton Delgado aware of this for anesthesia had consultation with pt. 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 Hx of rheumatic fever (Acute) PT. STATES WHEN SHE WAS 11 SHE HAD RF, AND WAS ON PROPHYLACTIC (BICILLIN) ABX X 20 YEARS Hyperlipidemia (Acute) Nuclear sclerotic cataract of right eye (Resolved) Surgical History Appendectomy Colonoscopy - MAC (08/23/17) H/O exploratory laparotomy (Acute) H/O left wrist surgery (Acute) Reconstructive surgery after suicidal attempt History of hernia repair (Chronic) History of hip replacement (Chronic) 2008 right hip with History of tonsillectomy (Chronic) History of total left hip replacement (Acute 08/27/19) Pilonidal cyst (Acute) S/P total hip arthroplasty (Acute) Right Status post carpal tunnel release of both wrists (Acute) Status post cataract extraction and insertion of intraocular lens of left eye (Resolved 07/13/18) Status post cataract extraction and insertion of intraocular lens of right eye (Resolved 06/29/18) Status post total replacement of right hip (Acute) Vaginal hysterectomy Social History Smoking/Tobacco Use Status: Former Tobacco Use Quit Date: 06/19/78 Tobacco: How many years used: 15 Alcohol Intake: never Drug use: Never Current gender identity: female Do you feel safe at home: Yes Do you feel safe in your relationship?: Yes Female Reproductive History Menstrual control method: progestin IUCD Exam Const General: cooperative, healthy appearing, comfortable, no acute distress, well developed and well groomed Nutritional Appearance: average body habitus and well nourished Orientation: alert and awake Resp Effort & Inspection: normal respiratory effort and no respiratory distress Auscultation: clear to auscultation bilaterally, no rales, no rhonchi and no wheezes Cardio Rate: regular rate Rhythm: regular rhythm Heart Sounds: S1 normal and S2 normal GI Inspection: normal to inspection Palpation: soft, no hepatosplenomegaly, not firm, no guarding, not rigid and nontender Back/Spine/Pelvis Back: no CVA tenderness Skin General skin exam: no rashes or lesions noted Trauma: no lacerations or abrasions Neuro General: patient alert and patient awake Cognition: normal cognition Speech: speech normal Gait: normal gait Psych Appearance: grossly normal and well kempt Mental Status: mental status grossly normal Speech and Movement: speech and movement normal Course Vital Signs Vital signs: Vital Signs Temperature 36.5 C 02/15/20 08:35 Pulse 87 02/15/20 08:35 Respiratory Rate 16 02/15/20 08:35 Blood Pressure 172/63 H 02/15/20 08:35 Pulse Oximetry 98 02/15/20 08:35 Temperature 36.5 C 02/15/20 08:53 Temperature Source Skin 02/15/20 08:35 Pulse 87 02/15/20 08:53 Respiratory Rate 16 02/15/20 08:53 Respiratory Effort Non-Labored 02/15/20 08:37 Blood Pressure 148/69 H 02/15/20 08:53 Blood Pressure Position Sitting 02/15/20 08:35 Pulse Oximetry 98 02/15/20 08:53 Oxygen Delivery Method Room Air 02/15/20 08:35 Oxygen Flow Rate 0 02/15/20 08:35 Pain Level 7 02/15/20 08:53 Lab/Test Results Lab/Test Results: 02/15/20 08:33 Urine - Reflex from Ua Urine Culture - Pending Laboratory Tests Range/Units 02/15/20 08:33 Urine Color (Yellow) Yellow Urine Clarity (Clear) Sl cloudy Urine pH (5-8) 7.0 Ur Specific Reserve (1.005-1.025) 1.020 Urine Protein (Negative) mg/dL 100 H Urine Ketones (Negative) mg/dL Negative Urine Blood (Negative) Moderate H Urine Nitrite (Negative) Positive H Urine Bilirubin (Negative) Negative Urine Urobilinogen (Up TO 0.2) EU/dL 0.2 Ur Leukocyte Esterase (Negative) Small H Urine RBC (0-2) HPF >50 H Urine WBC (0-5) HPF >50 H Ur Epithelial Cells (Negative) HPF Negative Urine Crystals (Negative) HPF Negative Urine Bacteria (Negative) HPF Many Urine Casts (Negative) LPF Negative Urine Mucus (Negative) Negative Ur Culture Indicated? Yes Urine Glucose (Negative) mg/dL Negative
== END 2020-02-15 08:50 | disposition home or self-care (01) ==
PROVIDERS: Emergency Provider Physician Assistant; PCP Neuromusculoskeletal Medicine & OMM
DX: N39.0 Urinary tract infection, site not specified (principal); B96.20 Unspecified Escherichia coli [E. coli] as the cause of diseases classified elsewhere; Z87.440 Personal history of urinary (tract) infections
CPT/HCPCS: 87077; 99283; 81003; 81015; 87086; 87186

== ENCOUNTER 2020-03-16 02:04 | Outpatient (CLI) | payer MEDICARE, BC, SELFPAY ==
--- NOTE | 2020-03-16 | DI.US_ITS ---
EXAM: US PELVIS TRANSVAGINAL CLINICAL HISTORY: PELVIC PAIN,R10.2 TECHNIQUE: Transabdominal and transvaginal imaging was performed using standard protocol. COMPARISON: No exams were available for comparison FINDINGS: UTERUS: Status post hysterectomy OVARIES: Right: Cyst or mass: None. Left: Cyst or mass: Not visualized either transabdominally or transvaginally CUL-DE-SAC: Free fluid: None. IMPRESSION: Status post hysterectomy. Unremarkable right ovary. The left ovary was not able to be visualized. DATA REPOSITORY:
== END 2020-03-16 02:24 ==
PROVIDERS: PCP Neuromusculoskeletal Medicine & OMM; Visit Provider Obstetrics & Gynecology
DX: R10.2 Pelvic and perineal pain (principal)
CPT/HCPCS: 76830; 76856

== ENCOUNTER 2020-08-06 09:47 | Outpatient (CLI) | payer MEDICARE, BC, SELFPAY ==
--- NOTE | 2020-08-06 09:30 | DI.RAD_ITS ---
EXAM: XR HIP LT AP LAT ONLY CLINICAL HISTORY: annual f/u L DENISE. TECHNIQUE: 2D digital imaging was performed. COMPARISON: CR XR HIP LT COMPLETE AP PELVIS from 09/12/2019 FINDINGS: Position alignment of the components of the left hip prosthesis remain stable no fracture or loosenin g. No radiographic evidence of osteomyelitis. IMPRESSION: DATA REPOSITORY: RADIATION DOSE DELIVERED:
== END 2020-08-06 09:48 | disposition home or self-care (01) ==
LOC: DIORS 09:47
PROVIDERS: PCP Neuromusculoskeletal Medicine & OMM; Referring Provider Neuromusculoskeletal Medicine & OMM; Visit Provider Student in an Organized Health Care Education/Training Program
DX: Z96.642 Presence of left artificial hip joint (principal); Z47.1 Aftercare following joint replacement surgery; M76.892 Other specified enthesopathies of left lower limb, excluding foot
CPT/HCPCS: 99213; 73502

== ENCOUNTER 2021-09-02 02:08 | Outpatient (CLI) | payer MEDICARE, BC, SELFPAY ==
--- NOTE | 2021-09-02 | DI.MAMMO_ITS ---
Exam(s) MAMMO SCREENING EXAM: MAMMO SCREENING CLINICAL HISTORY: SCREENING,Z12.31. TECHNIQUE: Bilateral full field digital CC and MLO mammographic images were obtained with 3D tomosyn thesis and utilizing computer aided detection (CAD). COMPARISON: Prior mammograms were reviewed, the most recent being October 2019. FINDINGS: There is a single new well-defined noncalcified small nodule evident in each breast. There are no new spiculated masses nor malignant appearing microcalcification groups. There is no significant architectural distortion nor skin thickening-retraction. IMPRESSION: Single nodule in each breast. Spot compression view and ultrasound both breasts recommended. BI-RADS Category 0 - Assessment Incomplete: Need additional imaging evaluation Breast Density - Category C - Heterogeneously dense Breast density Category C or D implies that the patient has dense breast tissue. Dense breast tissue can make it harder to find cancer on a mammogram. Dense breast tissue is also associated with an incr eased risk of breast cancer. This information about the result of the mammogram report was provided to the patient to raise their awareness. Use this report when you speak with the patient about their risks for breast cancer, which includes their family history. At that time, you may recommend additional screening tests (Ultrasoun d or MRI) as these tests may add significant information. A negative radiographic report should not delay biopsy if a dominant or clinically suspicious mass is present. Up to ten percent of cancers are not identified on mammography. A negative report may reinforce clinical impression. Adenosis and dense breasts may obscure an underlying neoplasm. False positive reports average 6 to 10%. Patient will receive a letter notifying them of these results.
== END 2021-09-02 02:28 ==
PROVIDERS: PCP Neuromusculoskeletal Medicine & OMM; Visit Provider Neuromusculoskeletal Medicine & OMM
DX: Z12.31 Encounter for screening mammogram for malignant neoplasm of breast (principal); R92.8 Other abnormal and inconclusive findings on diagnostic imaging of breast
CPT/HCPCS: 77063; 77067

== ENCOUNTER 2021-09-22 01:33 | Outpatient (CLI) | payer MEDICARE, BC, SELFPAY ==
--- NOTE | 2021-09-22 | DI.US_ITS ---
Exam(s) US BREAST RT COMPLETE EXAM: US BREAST RT COMPLETE CLINICAL HISTORY: NEW WELL DEFINED NONCALCIFIED SMALL NODULE EACH BREAST, R92.8. TECHNIQUE: Complete ultrasound of the breast was performed including all 4 quadrants, the retroareo lar region, and the ipsilateral axilla. COMPARISON: Prior mammograms were reviewed. FINDINGS: SEE COMBINED REPORT IMPRESSION: SEE COMBINED REPORT . BI-RADS Category 3 - 6 month - Probably Benign Finding: Recommend follow-up mammography in 6 months Breast Density - Category C - Heterogeneously dense Breast density Category C or D implies that the patient has dense breast tissue. Dense breast tissue can make it harder to find cancer on a mammogram. Dense breast tissue is also associated with an incr eased risk of breast cancer. This information about the result of the mammogram report was provided to the patient to raise their awareness. Use this report when you speak with the patient about their risks for breast cancer, which includes their family history. At that time, you may recommend additional screening tests (Ultrasoun d or MRI) as these tests may add significant information. A negative radiographic report should not delay biopsy if a dominant or clinically suspicious mass is present. Up to ten percent of cancers are not identified on mammography. A negative report may reinforce clinical impression. Adenosis and dense breasts may obscure an underlying neoplasm. False positive reports average 6 to 10%. Patient will receive a letter notifying them of these results.
--- NOTE | 2021-09-22 | DI.US_ITS ---
Exam(s) US BREAST LT COMPLETE MG MAMMO SCREEN CALL BACK BI EXAM: MG MAMMO SCREEN CALL BACK BI AND BILATERAL COMPLETE BREAST ULTRSOUND CLINICAL HISTORY: NEW WELL DEFINED NONCALCIFIED NODULE EACH BREAST. TECHNIQUE: BILATERAL l spot mammographic images obtained with 3D tomosynthesisand utilizing computer aided detection (CAD). . Complete BILATERAL breast Ultrasound was also performed, including all 4 quadrants, the retroareolar regions, and the bilateral axillary regions. COMPARISON: Prior mammograms were reviewed. 09/03/2019 this additional imaging was performed due to findings described on the recent screening mammogram of . FINDINGS: BILATERAL DIAGNOSTIC MAMMOGRAM: Additional mammographic views performed todayrender finding in the right breast less concerning.. Additional spot compression view left breast findings reveals at this slightly lobulated nodule persi sts. BILATERAL COMPLETE BREAST ULTRASOUND: There is a solitary finding in each breast. LEFT BREAST: At the 4 o'clock position of the left breast there is a 8 by 4 millimeter cyst. This ma y correspond to finding on the mammogram. Does not exactly correlate same location. There are no ot her focal ultrasound findings in the left breast. No solid lesions seen in all 4 quadrants. Left axilla is negative for significant adenopathy. RIGHT BREAST: There are few small microcysts, largest measuring 6 x 3 millimeters and located at the 8 o'clock position. No solid lesions seen in all 4 quadrants Right axilla is negative for significant adenopathy IMPRESSION: 1. Benign-appearing right breast mammographic and ultrasound findings. 2. Benign-appearing ultrasound findings in the left breast. Persistent small noncalcified lobulated nodule for the medial aspect of the left breast may or may not correspond to the microcyst described on the ultrasound. Nevertheless, there no solid lesions seen in the left breast on ultrasound. Ther efore this finding may also represent a benign intramammary lymph (which are often not seen on ultras ound). Appropriate follow-up is repeat breast imaging in 6 months, to include repeat bilateral breast mammog gage and bilateral breast ultrasound examinations. Earlier imaging would be recommended if there is a self detected breast change noted. The patient was informed of these findings and recommendations prior to leaving the department today. BI-RADS Category 3 - 6 month - Probably Benign Finding: Recommend follow-up mammography in 6 months Breast Density - Category C - Heterogeneously dense Breast density Category C or D implies that the patient has dense breast tissue. Dense breast tissue can make it harder to find cancer on a mammogram. Dense breast tissue is also associated with an incr eased risk of breast cancer. This information about the result of the mammogram report was provided to the patient to raise their awareness. Use this report when you speak with the patient about their risks for breast cancer, which includes their family history. At that time, you may recommend additional screening tests (Ultrasoun d or MRI) as these tests may add significant information. A negative radiographic report should not delay biopsy if a dominant or clinically suspicious mass is present. Up to ten percent of cancers are not identified on mammography. A negative report may reinforce clinical impression. Adenosis and dense breasts may obscure an underlying neoplasm. False positive reports average 6 to 10%. Patient will receive a letter notifying them of these results.
== END 2021-09-22 01:53 ==
PROVIDERS: PCP Neuromusculoskeletal Medicine & OMM; Visit Provider Neuromusculoskeletal Medicine & OMM
DX: Z12.31 Encounter for screening mammogram for malignant neoplasm of breast (principal); R92.8 Other abnormal and inconclusive findings on diagnostic imaging of breast; N60.02 Solitary cyst of left breast; N60.11 Diffuse cystic mastopathy of right breast; N64.59 Other signs and symptoms in breast
CPT/HCPCS: 76642; 77063; 77067

== ENCOUNTER 2021-09-30 02:24 | Outpatient (CLI) | payer MEDICARE, BC, SELFPAY ==
[2021-09-30 09:20] LABS: ALT 23 U/L (14-59); AST 14 U/L (15-37); Albumin 3.8 g/dL (3.4-5.0); Alkaline Phosphatase 78 U/L (46-116); Anion Gap 9.8 mmol/L (3-11); BUN 11 mg/dL (7-18); Bilirubin, Total 0.4 mg/dL (0.2-1.0); CO2 25.2 mmol/L (21.0-32.0); CREATININE 0.7 mg/dL (0.55-1.02); Calcium 9.6 mg/dL (8.5-10.1); Calculated LDL 184 mg/dL (<100); Chloride 108 mmol/L (98-107); Cholesterol 272 mg/dL (<200); Glucose 106 mg/dL (74-106); HDL Cholesterol 68 mg/dL (40-60); Potassium 4.4 mmol/L (3.5-5.1); Sodium 143 mmol/L (136-145); Triglyceride 104 mg/dL (<150)
== END 2021-09-30 02:25 | disposition home or self-care (01) ==
LOC: LBO 02:24
PROVIDERS: PCP Neuromusculoskeletal Medicine & OMM; Visit Provider Neuromusculoskeletal Medicine & OMM
DX: E78.5 Hyperlipidemia, unspecified
CPT/HCPCS: 36415; 80053; 80061

== ENCOUNTER 2022-01-29 13:57 | Emergency (ER) | payer MEDICARE, BC, SELFPAY ==
--- NOTE | 2022-01-29 13:59 | W.ED.GENAD ---
Discharge Plan Disposition Patient Disposition: HOME Condition: Stable Discharge Details Clinical Impression: Candidiasis of mouth Primary Care Provider: Shaw Scott ED Provider: Rashaun Sue Home Meds and New Rx's Prescriptions: New nystatin 100,000 unit/mL suspension 5 ml buccal QID 10 Days Qty: 200 0RF Rx Instructions: administer 1/2 of dose in each side of the mouth, retain in mouth as long as possible, you may also gargle with this. Continued ezetimibe [Zetia] 10 MG tablet 10 mg PO DAILY calcium carbonate [Calcium 600] 600 MG tablet 600 mg PO BID iron 18 MG tablet 25 mg PO DAILY zolpidem 12.5 MG tablet,ext release multiphase 12.5 mg PO HS PRN PRN multivitamin [Daily Multi-Vitamin] 1 EACH tablet 1 ea PO DAILY Discharge Instructions Instructions: Oral Candidiasis (ED) Additional Instructions: Rapid strep negative, culture pending. Nystatin as directed. Please watch for new or worsening symptoms and return to the ER for any concerns. Lastly, if symptoms are not improving over the next 3-5 days I do recommend follow-up with your primary care provider. Discharge Data Discharge Date/Time-TO BE ENTERED AT DEPARTURE: 01/29/22 15:23 Medical Decision Making This is a 71-year-old female who reports an irritated throat for approximately 1-2 weeks and today she noticed irritation in her mouth as well as some white patches that were able to be wiped off. Clinically her pharynx is unremarkable but her tongue and buccal mucosa appears consistent with thrush. She reports irritation and I will give her a dose of Magic mouthwash now. Because of the pharyngitis over the past 1-2 weeks, will obtain rapid strep although low suspicion. Rapid strep negative, culture pending. Will provide a prescription for nystatin to treat thrush. Standard discharge and return precautions were provided. Patient understands, is agreeable to this plan, and has no additional questions or concerns upon discharge. This documentation was generated using [email or web address] system, please disregard any oddities of phrase or misspellings. Medical Records Medical records reviewed: Yes I reviewed the patient's medical records. Lab Data Lab results reviewed: Yes I reviewed the patient's lab results. Labs: 01/29/22 14:15 Pharynx Group A Streptococcus Culture - Pending HPI General Mode of arrival: ambulatory. Date/Time Provider Initiated Documentation: 01/29/22 13:58. Limitations to Documentation: no limitations. Information obtained by: patient. History of Present Illness 71 year old F presents to the emergency department with the chief complaint of Throat irritation, described as mild, with intensity rated at 2. Quality is described as other (Irritation), and is localized to the mouth (Throat). Patient reports no radiation. Patient started experiencing this week(s) (1-2) and it has been constant. No relieving factors improve symptom(s), No exacerbating factors reported . Patient notes other (White patches in mouth today). Patient did receive the following treatments prior to arrival, other (Listerine) Related Data Home Medications Medication Instructions Recorded Confirmed ezetimibe 10 mg tablet (Zetia) 10 mg PO DAILY 02/25/13 01/29/22 calcium carbonate 600 mg calcium 600 mg PO BID 08/06/13 01/29/22 (1,500 mg) tablet (Calcium) iron 18 mg tablet 25 mg PO DAILY 08/06/13 01/29/22 zolpidem 12.5 mg tablet,extended 12.5 mg PO HS PRN PRN 08/06/13 01/29/22 release,multiphase multivitamin (Daily Multi-Vitamin 1 ea PO DAILY 01/28/14 01/29/22 tablet) nystatin 100,000 unit/mL oral 5 ml buccal QID 10 days #200 mL 01/29/22 suspension Previous Rx's Medication Instructions Recorded nystatin 100,000 unit/mL oral 5 ml buccal QID 10 days #200 mL 01/29/22 suspension Allergies Allergy/AdvReac Type Severity Reaction Status Date / Time No Known Allergies Allergy Unverified 08/06/20 09:39 General RUSTAM: 3 Review of Systems Constitutional Constitutional: Denies fever(s) and Denies headache(s) ENT Ears, Nose, Mouth, and Throat: Denies headache(s), Reports mouth lesions, Reports mouth pain, Denies neck pain and Reports sore throat Cardiovascular Cardiovascular: Denies dyspnea Respiratory Respiratory: Denies cough and Denies dyspnea Musculoskeletal Musculoskeletal: Denies neck pain Integumentary/Breasts Skin/Breast: Denies rash Neurologic Neurologic: Denies headache(s) PFSH All Active Problems Candidiasis of mouth (Acute) Hip abductor tendinitis (Acute) History of total left hip replacement (Acute 08/27/19) S/P total hip arthroplasty (Acute) Right Knee effusion, right (Acute) Degenerative arthritis of spine (Acute) Medical History Anemia Arthritis Depression resolved Esophageal reflux resolved Hx of difficult intubation I was difficult to initubate because of my bone structure, a torus bone grownth I had a procedure during the whole hepatitis incident in the s, that I was so relaxed that I flat-lined Alton Delgado aware of this for anesthesia had consultation with pt. 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 Hx of rheumatic fever PT. STATES WHEN SHE WAS 11 SHE HAD RF, AND WAS ON PROPHYLACTIC (BICILLIN) ABX X 20 YEARS Hyperlipidemia Nuclear sclerotic cataract of right eye Surgical History Appendectomy Colonoscopy - MAC (08/23/17) H/O exploratory laparotomy H/O left wrist surgery Reconstructive surgery after suicidal attempt History of hernia repair History of hip replacement 2009 right hip with History of tonsillectomy Pilonidal cyst Status post carpal tunnel release of both wrists Status post cataract extraction and insertion of intraocular lens of left eye (07/13/18) Status post cataract extraction and insertion of intraocular lens of right eye (06/29/18) Status post total replacement of right hip Vaginal hysterectomy Social History Smoking/Tobacco Use Status: Former Tobacco Use Quit Date: 06/19/78 Tobacco: How many years used: 15 Smoking risk assessment performed?: Yes Alcohol Intake: never Drug use: Never Current gender identity: female Do you feel safe at home: Yes Do you feel safe in your relationship?: Yes Female Reproductive History Menstrual control method: progestin IUCD Exam Const General: cooperative, healthy appearing, comfortable and no acute distress Orientation: alert and awake [facility] Head: normal to inspection, normocephalic and atraumatic Face and sinus: normal facial exam Mouth: lip normal, moist mucous membranes, oral mucosa abnormal white patches and tongue abnormal with white coating (Slightly) Teeth and gingiva: dentition normal Throat: posterior oropharynx normal Eyes General: appearance normal, both eyes and all related structures Conjunctivae: conjunctivae normal Neck Neck: normal visual inspection, full ROM, no lymphadenopathy, no meningeal signs, trachea midline, supple and nontender Resp Effort & Inspection: normal respiratory effort and able to speak in complete sentences Auscultation: clear to auscultation bilaterally Cardio Rate: regular rate Rhythm: regular rhythm Skin General skin exam: no rashes or lesions noted Neuro General: patient alert, patient awake, moves all extremities and no focal motor deficits Cognition: normal cognition Speech: speech normal Gait: normal gait Sensory Exam: no sensory deficits noted Psych Appearance: grossly normal Mental Status: mental status grossly normal
[2022-01-29 14:02] VITALS: BP 163/63; RESP 18; TEMP 37; O2SAT 99
[2022-01-29] MEDS: Magic Mouthwash 119 ML BTL MM (14:41)
[2022-01-29 15:16] VITALS: BP 146/80; PULSE 72; RESP 18; O2SAT 97
== END 2022-01-29 15:23 | disposition home or self-care (01) ==
PROVIDERS: Emergency Provider Physician Assistant; PCP Neuromusculoskeletal Medicine & OMM
DX: B37.0 Candidal stomatitis (principal)
CPT/HCPCS: 99283; 87081

== ENCOUNTER → 2022-04-06 01:38 | Outpatient (CLI) | payer MEDICARE, BC, SELFPAY ==
--- NOTE | 2022-04-06 09:30 | DI.MAMMO_ITS ---
Exam(s) US BREAST LT COMPLETE US BREAST RT COMPLETE MG MAMMO DIAGNOSTIC BI EXAM: MG MAMMO DIAGNOSTIC BI AND BILATERAL COMPLETE BREAST ULTRASOUND CLINICAL HISTORY: 6-MO F/U BILAT MAMMO, INCONCLUSIVE FINDINGS ON DI OF BREAST, R92.8. TECHNIQUE: Bilateral CC and MLO mammographic images were obtained with 3D tomosynthesis technique an d utilizing computer aided detection (CAD). Also performed additional spot compression view of the r ight breast. Bilateral complete breast ultrasound was performed, including all 4 quadrants, both retroareolar alie ons, and both axillary regions. COMPARISON: Prior mammograms were reviewed, the most recent being August/September 2021. Ultrasound that time was also reviewed.. FINDINGS: DIAGNOSTIC BILATERAL MAMMOGRAM: No new spiculated masses nor malignant-appearing microcalcification groups in either breast. Small n odular density previously described in left breast is less evident on present study. In the right br east there is a small nodular density again noted. This has benign appearance on additional spot com pression MLO view performed. No new architectural distortion or skin thickening-traction either breast. BILATERAL COMPLETE BREAST ULTRASOUND: Right breast: At the 8 o'clock position there is a conglomeration of microcysts measuring 12 x 3 mill imeters. This is not seen on 3D mammography. There are no other focal ultrasound findings in the ri ght breast. No significant adenopathy in the right axilla. Left breast: No significant focal findings in all 4 quadrants. Previously described cyst at the 4 o' clock position is no longer seen. In the left axilla there few benign-appearing lymph nodes. IMPRESSION: 1. Benign mammographic findings. No radiographic evidence of malignancy. 2. Benign-appearing ultrasound findings as described above. Appropriate follow-up is to keep this patient on a yearly mammogram schedule, with earlier imaging if a self detected breast change is noted.. The patient was informed of the findings and follow-up recommendations prior to leaving the [facility]. BI-RADS Category 2 - Benign Findings Breast Density - Category B - Scattered areas of fibroglandular density Breast density Category C or D implies that the patient has dense breast tissue. Dense breast tissue can make it harder to find cancer on a mammogram. Dense breast tissue is also associated with an incr eased risk of breast cancer. This information about the result of the mammogram report was provided to the patient to raise their awareness. Use this report when you speak with the patient about their risks for breast cancer, which includes their family history. At that time, you may recommend additional screening tests (Ultrasoun d or MRI) as these tests may add significant information. A negative radiographic report should not delay biopsy if a dominant or clinically suspicious mass is present. Up to ten percent of cancers are not identified on mammography. A negative report may reinforce clinical impression. Adenosis and dense breasts may obscure an underlying neoplasm. False positive reports average 6 to 10%. Patient will receive a letter notifying them of these results.
== END ==
PROVIDERS: PCP Neuromusculoskeletal Medicine & OMM; Visit Provider Neuromusculoskeletal Medicine & OMM
DX: R92.8 Other abnormal and inconclusive findings on diagnostic imaging of breast (principal); R92.0 Mammographic microcalcification found on diagnostic imaging of breast
CPT/HCPCS: 76642; 77062; 77066; G0279

== ENCOUNTER 2022-12-05 02:45 | Outpatient (CLI) | payer MEDICARE, BC, SELFPAY ==
--- NOTE | 2022-12-05 11:18 | DI.RAD_ITS ---
Exam(s) XR CERVICAL SPINE COMP 4-5V EXAM: XR CERVICAL SPINE COMP 4-5V CLINICAL HISTORY: CHRONIC NECK PAIN WITH RADICULOPATHY, WORSENING, NO TRAUMA, M54.12. TECHNIQUE: 2D digital imaging was performed. COMPARISON: No exams were available for comparison FINDINGS: Severe narrowing of the C 3 4 through C6-7 disc spaces with endplate osteophytes. Facet degenerative changes also present. Mild bilateral neural foraminal narrowing noted at several levels. Soft tiss ues are unremarkable. IMPRESSION: Degenerative disc changes and facet degenerative changes causing mild bilateral neural foraminal narr owing. DATA REPOSITORY: RADIATION DOSE DELIVERED:
== END 2022-12-05 03:05 ==
LOC: DI 02:45
PROVIDERS: PCP Neuromusculoskeletal Medicine & OMM; Visit Provider Physician Assistant Medical
DX: M99.53 Intervertebral disc stenosis of neural canal of lumbar region (principal); M54.12 Radiculopathy, cervical region
CPT/HCPCS: 72050

== ENCOUNTER → 2023-04-10 02:17 | Outpatient (CLI) | payer MEDICARE, BC, SELFPAY ==
--- NOTE | 2023-04-10 | DI.MAMMO_ITS ---
Exam(s) MAMMO SCREENING EXAM: MAMMO SCREENING CLINICAL HISTORY: SCREENING FOR BREAST CANCER. TECHNIQUE: Bilateral full field digital CC and MLO mammographic images were obtained with 3D tomosyn thesis and utilizing computer aided detection (CAD). COMPARISON: Prior mammograms were reviewed. FINDINGS: There are no new obvious spiculated masses nor malignant-appearing microcalcification groups in eithe r breast. Few small benign-appearing nodules are unchanged from last year. There are no new spiculated masses nor malignant appearing microcalcification groups. There is no significant architectural distortion nor skin thickening-retraction. IMPRESSION: Stable benign-appearing findings. No radiographic evidence of malignancy. BI-RADS Category 2 - Benign Findings Breast Density - Category C - Heterogeneously dense Breast density Category C or D implies that the patient has dense breast tissue. Dense breast tissue can make it harder to find cancer on a mammogram. Dense breast tissue is also associated with an incr eased risk of breast cancer. This information about the result of the mammogram report was provided to the patient to raise their awareness. Use this report when you speak with the patient about their risks for breast cancer, which includes their family history. At that time, you may recommend additional screening tests (Ultrasoun d or MRI) as these tests may add significant information. A negative radiographic report should not delay biopsy if a dominant or clinically suspicious mass is present. Up to ten percent of cancers are not identified on mammography. A negative report may reinforce clinical impression. Adenosis and dense breasts may obscure an underlying neoplasm. False positive reports average 6 to 10%. Patient will receive a letter notifying them of these results.
== END ==
PROVIDERS: PCP Neuromusculoskeletal Medicine & OMM; Visit Provider Neuromusculoskeletal Medicine & OMM
DX: Z12.31 Encounter for screening mammogram for malignant neoplasm of breast (principal)
CPT/HCPCS: 77063; 77067

== ENCOUNTER → 2023-06-06 01:17 | Outpatient (CLI) | payer MEDICARE, BC, SELFPAY ==
[2023-06-06 08:52] LABS: CREATININE 0.8 mg/dL (0.55-1.02); Estimated GFR 76.79 (mL/min/1.73m2)
[2023-06-06] MEDS: Barium Sulfate 2% W/V-Creamy Vanilla Smoothie 450 ML BTL 900 ML PO (09:04)
[2023-06-06] MEDS: Normal Saline - Diluent 50 ML VIAL IJ (09:46)
[2023-06-06] MEDS: Omnipaque 350 MG/ML 500 ML BTL-Imaging package 100 ML IJ (09:48)
--- NOTE | 2023-06-06 10:00 | DI.CT_ITS ---
Exam(s) CT ABDOMEN PELVIS W EXAM: CT ABDOMEN PELVIS W CLINICAL HISTORY: FATIGUE R53.83 ANEMIA D64.9 CONSTIPATION K59.00 PAIN R10.9. TECHNIQUE: Imaging Protocol: Axial computed tomography images with coronal and sagittal reformatted images were created and reviewed CONTRAST MATERIAL: Intravenous: Omnipaque-350 100cc Oral: Yes. Oral contrast was also administered for bowel opacification. COMPARISON: No exams were available for comparison FINDINGS: VISUALIZED LUNG BASES: No nodules nor pleural effusions evident. ABDOMEN: There is no ascites. LIVER: There are no focal hepatic lesions evident. No dilated intrahepatic ducts. GALLBLADDER/BILIARY: No obvious gallbladder pathology. CBD is not dilated. PANCREAS: No evidence of pancreatic mass nor dilatation of the pancreatic duct. SPLEEN: Spleen is not enlarged. No obvious intrasplenic lesions. Splenic and portal veins are paten t. ADRENALS: There are no significant adrenal masses. KIDNEYS:No cysts evident. No solid renal masses. No calculi nor hydronephrosis.. ABDOMINAL AORTA: Abdominal aorta is not enlarged. LYMPH NODES:There is no retroperitoneal nor paraaortic adenopathy. ABDOMINAL WALL: No evidence of significant anterior abdominal wall nor inguinal hernia. GI: There is abundant fecal material noted throughout the colon. No obvious diverticular disease. There is a mild mesenteric swirl sign in the left side of the lower abdomen. No bowel obstruction se en. PELVIS: GI: No evidence of appendicitis.No evidence of sigmoid diverticulitis. LYMPH NODES: There is no intrapelvic nor inguinal adenopathy. REPRODUCTIVE: Difficult to assess because of beam hardening artifact from bilateral hip prostheses. URINARY BLADDER: No calculi nor obvious masses evident OSSEOUS: No fractures and no significant osseous lesions. Multilevel advanced disc space narrowing throughout the lumbosacral spinal column. IMPRESSION: 1. There is abundant fecal material throughout the colon-probable constipation. There is no signific ant diverticular disease. 2. Mild mesenteric swirl sign but no evidence of small-bowel obstruction. No ascites. RADIATION DOSE DELIVERED: Total DLP DATA REPOSITORY: All CT scans at this facility are submitted to the National Radiology Data Registry (NRDR) Dose Index Registry (DIR) with the [employer] (A[employer]). RADIATION OPTIMIZATION: All CT scans at this facility use at least one of these dose optimization te chniques: automated exposure control; mA and/or kV adjustment per patient size (includes targeted exa ms where dose is matched to clinical indication); or iterative reconstruction.
== END ==
PROVIDERS: PCP Neuromusculoskeletal Medicine & OMM; Visit Provider Nurse Practitioner Family
DX: K59.00 Constipation, unspecified (principal); R53.83 Other fatigue; R10.9 Unspecified abdominal pain
CPT/HCPCS: 74177; 82565

== ENCOUNTER 2023-12-25 03:30 | Outpatient (CLI) | payer MEDICARE, BC, SELFPAY ==
[2023-12-25 09:25] LABS: Abs Immature Grans 0.02 10^3/uL (0.0-0.06); Absolute Basophil Count 0.03 10^3/uL (0.0-0.2); Absolute Eosinophil Count 0.17 10^3/uL (0.0-0.7); Absolute Neutrophil Count 2.98 10^3/uL (1.2-6.7); Basophils % 0.5 %; Eosinophils % 3.1 %; HCT 36.4 % (36.0-46.0); HGB 11.3 g/dL (11.2-15.7); Immature Grans % 0.4 %; Lymphocytes % 34.5 %; MCH 27.6 pg (27.0-33.0); MCV 89 fL (80-95); MPV 8.9 fL (8.0-11.0); Monocytes % 7.3 %; Neutrophils % 54.2 %; Platelet Count 329 10^3/uL (130-400); RDW 15.6 % (11.7-14.6); RDW-SD 50.4 fL
[2023-12-25 09:49] LABS: ALT 16 U/L (14-59); AST 15 U/L (15-37); Albumin 3.8 g/dL (3.4-5.0); Alkaline Phosphatase 78 U/L (46-116); Anion Gap 8.3 mmol/L (3-11); BUN 10 mg/dL (7-18); Bilirubin, Total 0.31 mg/dL (0.2-1.0); CO2 27.7 mmol/L (21.0-32.0); CREATININE 0.8 mg/dL (0.55-1.02); Calcium 9.6 mg/dL (8.5-10.1); Calculated LDL 152 mg/dL (<100); Chloride 108 mmol/L (98-107); Cholesterol 238 mg/dL (<200); Estimated GFR 76.79 (mL/min/1.73m2); Glucose 107 mg/dL (74-106); HDL Cholesterol 66 mg/dL (40-60); Potassium 4.7 mmol/L (3.5-5.1); Sodium 144 mmol/L (136-145); TSH (W/Ref FT4) 1.02 uIU/mL (0.36-3.74); Total Protein 7.6 g/dL (6.4-8.2); Triglyceride 103 mg/dL (<150)
[2023-12-25 09:57] LABS: Hemoglobin A1C 5.9 % (<5.7)
== END 2023-12-25 03:31 | disposition home or self-care (01) ==
PROVIDERS: PCP Neuromusculoskeletal Medicine & OMM; Visit Provider Family Medicine
DX: Z00.00 Encounter for general adult medical examination without abnormal findings (principal)
CPT/HCPCS: 36415; 80053; 80061; 83036; 84443; 85025

== ENCOUNTER 2024-06-27 13:25 | Emergency (ER) | payer MEDICARE, BC, SELFPAY ==
[2024-06-27 13:31] VITALS: BP 185/88; PULSE 96; RESP 18; TEMP 36.6; O2SAT 98
[2024-06-27 13:35] VITALS: BP 185/88; PULSE 96; RESP 18; TEMP 36.6; O2SAT 98
--- NOTE | 2024-06-27 13:45 | DI.RAD_ITS ---
Exam(s) XR CHEST 2V PA LATERAL EXAM: XR CHEST 2V PA LATERAL CLINICAL HISTORY: cough, palpitations. TECHNIQUE: 2D digital imaging was performed. COMPARISON: CR CHEST 2 VIEWS PA,LAT from 05/28/2008 FINDINGS: 2 views: Heart size is normal. The mediastinum is not widened. Lungs are clear. No infiltrates nor pleural effusions. IMPRESSION: No acute pulmonary findings. DATA REPOSITORY: RADIATION DOSE DELIVERED:
--- NOTE | 2024-06-27 13:45 | RT.EKG_ITS ---
APPROVED REPORT Exam: Resting ECG Reason for Exam: palpitations Patient Location: E HR:73 bpm ECG Measurements Heart Rate 73 AXIS CO 119 P 20 QRSd 84 QRS 37 QT 395 T 39 QTc 436 Conclusion Sinus rhythm. 73 normal axis no stemi
--- NOTE | 2024-06-27 13:50 | ED.GENADUL_ITS ---
Discharge Plan Discharge Details Chief Complaint: GenMedical Primary Care Provider: Shaw Scott ED Provider: Yany Ramirez Home Meds and New Rx's Prescriptions: No Action ezetimibe [Zetia] 10 MG tablet 10 mg PO DAILY Lactobacillus acidophilus Tablet,Chewable 1 tab PO DAILY calcium carbonate [Calcium 600] 600 MG tablet 600 mg PO BID iron 18 MG tablet 25 mg PO DAILY zolpidem 12.5 MG tablet,ext release multiphase 12.5 mg PO HS PRN PRN multivitamin [Daily Multi-Vitamin] 1 EACH tablet 1 ea PO DAILY HPI General Date/Time Provider Initiated Documentation: 06/27/24 13:29 . HPI Narrative: Cortez is a 74 year old female who presents to the emergency department today for evaluation of cough, fatigue/generalized weakness, anorexia, and low grade fever x 4 days. She denies fever above 100 degrees, headache, dizziness, vision changes, congestion, sore throat, ear pain, chest pain, shortness of breath, nausea/vomiting, abdominal pain, change in bowel or bladder function. Does have occasional palpitations with exertion. Admits to decreased p.o. intake due to low appetite. Denies history of cardiac disease other than rheumatic fever with murmur that has since resolved, diabetes, immunocompromise, lung disease, recent surgery/immobility, hormone use, cancer history. Past medical history is significant for HLD Physical exam reassuring. Cortze is alert and oriented, no acute distress. Easy work of breathing, lung sounds clear bilaterally. Normal heart sounds. Abdomen soft, nondistended, nontender palpation. No calf swelling/tenderness with palpation. Moving all extremities equally. Normal gait. Moist mucous membranes. D/dx includes but is not limited to: Pneumonia, viral illness, dehydration, electrolyte imbalance I independently interpreted the following tests: EKG reassuring, normal sinus rhythm rate 73, no changes consistent with acute ischemia, normal intervals. Flu a positive. CBC, CMP, TSH all reassuring. Mild hypokalemia, potassium 3.4. Chest x-ray reassuring, no obvious infiltrates or cardiomegaly. Overall workup today very reassuring. History and presentation consistent with flu. As symptoms have been ongoing for greater than 48 hours, Tamiflu not indicated. Reviewed discharge instructions with patient, including symptomatic management and red flags indicating need for return to emergency care. She voices agreement with plan of care. Related Data Home Medications ?Medication ?Instructions ?Recorded ?Confirmed ezetimibe 10 mg tablet (Zetia) 10 mg PO DAILY 02/25/13 06/27/24 calcium carbonate (Calcium 600) 600 mg PO BID 08/06/13 06/27/24 iron 18 mg tablet 25 mg PO DAILY 08/06/13 06/27/24 zolpidem 12.5 mg tablet,extended 12.5 mg PO HS PRN PRN 08/06/13 06/27/24 release,multiphase multivitamin (Daily Multi-Vitamin 1 ea PO DAILY 01/28/14 06/27/24 tablet) Lactobacillus acidophilus 1 tab PO DAILY 12/27/23 06/27/24 Allergies Allergy/AdvReac Type Severity Reaction Status Date / Time No Known Allergies Allergy Unverified 06/27/24 13:34 General Stated Complaint: GenMedical RUSTAM: 3 Review of Systems Narrative: see HPI Exam Const General: cooperative, healthy appearing, comfortable, no acute distress, well developed and well groomed Nutritional Appearance: average body habitus Orientation: alert and oriented x3 HENMT Head: normal to inspection Ears: hearing grossly normal bilaterally General nose exam: external nose normal Face and sinus: normal facial exam Mouth: oral mucosae normal, lip normal, tongue normal, oropharynx normal and moist mucous membranes Neck Neck: normal visual inspection, full ROM and no lymphadenopathy Resp Effort & Inspection: normal respiratory effort and able to speak in complete sentences Auscultation: clear to auscultation bilaterally Cardio Rate: regular rate Rhythm: regular rhythm GI Inspection: normal to inspection and non-distended Palpation: soft, not firm, not rigid and nontender Neuro General: patient alert, patient oriented x3, gait normal, tone normal, moves all extremities and no focal motor deficits Motor: muscle tone normal throughout Course Vital Signs Vital signs: Vital Signs Temperature 36.6 C 06/27/24 13:31 Pulse 96 H 06/27/24 13:31 Respiratory Rate 18 06/27/24 13:31 Blood Pressure 185/88 H 06/27/24 13:31 Pulse Oximetry 98 06/27/24 13:31 Temperature 36.6 C 06/27/24 13:35 Temperature Source Oral 06/27/24 13:35 Pulse 96 H 06/27/24 13:35 Respiratory Rate 18 06/27/24 13:35 Blood Pressure 185/88 H 06/27/24 13:35 Blood Pressure Position Sitting 06/27/24 13:35 Pulse Oximetry 98 06/27/24 13:35 Oxygen Delivery Method Room Air 06/27/24 13:35 Oxygen Flow Rate 0 06/27/24 13:35 Medical Decision Making Imaging Data Radiologic Study: Radiologist's impression: Exam(s) XR CHEST 2V PA LATERAL EXAM: XR CHEST 2V PA LATERAL CLINICAL HISTORY: cough, palpitations. TECHNIQUE: 2D digital imaging was performed. COMPARISON: CR CHEST 2 VIEWS PA,LAT from 05/28/2008 FINDINGS: 2 views: Heart size is normal. The mediastinum is not widened. Lungs are clear. No infiltrates nor pleural effusions. IMPRESSION: No acute pulmonary findings. Quality:SDOH Health Related Social Needs: No Data to Display PFSH All Active Problems (Updated 12/27/23 @ 13:43 by Christiano Guardado) Senile hyperkeratosis (Acute) Iron deficiency (Acute) Insomnia (Acute) Hyperlipidemia (Acute) Hearing loss (Acute) Fatigue (Acute) Epigastric pain (Acute) Depression (Chronic) Overactive bladder (Acute) Back pain (Acute) Atrophic vaginitis (Acute) Chronic pain (Chronic) Abdominal pain in female (Acute) Anemia (Chronic) Hematuria (Acute) Hip abductor tendinitis (Acute) S/P total hip arthroplasty (Acute) Right Knee effusion, right (Acute) Degenerative arthritis of spine (Acute) Medical History (Updated 12/27/23 @ 13:43 by Christiano Guardado) Hx of difficult intubation I was difficult to initubate because of my bone structure, a torus bone grownth I had a procedure during the whole hepatitis incident in the s, that I was so relaxed that I flat-lined [facility] aware of this for anesthesia had consultation with pt. 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 Hx of rheumatic fever PT. STATES WHEN SHE WAS 11 SHE HAD RF, AND WAS ON PROPHYLACTIC (BICILLIN) ABX X 20 YEARS Nuclear sclerotic cataract of right eye Esophageal reflux resolved Arthritis Surgical History (Updated 12/27/23 @ 13:43 by Christiano Guardado) History of total left hip replacement (08/27/19) History of hip replacement 2009 right hip with H/O left wrist surgery Reconstructive surgery after suicidal attempt H/O exploratory laparotomy Pilonidal cyst History of tonsillectomy History of hernia repair Status post carpal tunnel release of both wrists Status post total replacement of right hip Status post cataract extraction and insertion of intraocular lens of left eye (07/13/18) Status post cataract extraction and insertion of intraocular lens of right eye (06/29/18) Vaginal hysterectomy Colonoscopy - MAC (08/23/17) Appendectomy Social History Smoking/Tobacco Use Status: Former Tobacco Use Quit Date: 06/19/78 Tobacco: How many years used: 15 Smoking risk assessment performed?: Yes Alcohol Intake: never Drug use: Never Current gender identity: female Do you feel safe at home: Yes Do you feel safe in your relationship?: Yes Female Reproductive History Menstrual control method: progestin IUCD
[2024-06-27 14:33] LABS: HCT 38.9 % (36.0-46.0); HGB 12.6 g/dL (11.2-15.7); MCH 26.9 pg (27.0-33.0); MCHC 32.4 % (32.0-36.0); MCV 83 fL (80-95); MPV 9.1 fL (8.0-11.0); Platelet Count 304 10^3/uL (130-400); RBC 4.68 10^6/uL (3.93-5.22); RDW 14.6 % (11.7-14.6); RDW-SD 44.2 fL; WBC 3.54 10^3/uL (4.4-10.8)
[2024-06-27 14:44] LABS: COVID-19 PCR Negative (Negative); Influenza A PCR Positive (Negative); Influenza B PCR Negative (Negative); RSV PCR Negative (Negative)
[2024-06-27 14:46] LABS: Source Nasopharynx
[2024-06-27 15:01] LABS: Absolute Lymphocyte Count 1.81 10^3/uL (1.2-3.4); Absolute Monocyte Count 0.39 10^3/uL (0.1-0.8); Absolute Neutrophil Count 1.35 10^3/uL (1.2-6.7); Atypical Lymphocytes % 5 %; Diff Comment Manual Differential; RBC Morphology Normal
[2024-06-27 15:06] LABS: ALT 23 U/L (14-59); AST 26 U/L (15-37); Albumin 3.7 g/dL (3.4-5.0); Alkaline Phosphatase 73 U/L (46-116); Anion Gap 9.8 mmol/L (3-11); BUN 10 mg/dL (7-18); Bilirubin, Total 0.22 mg/dL (0.2-1.0); CO2 27.2 mmol/L (21.0-32.0); CREATININE 0.8 mg/dL (0.55-1.02); Calcium 9.8 mg/dL (8.5-10.1); Chloride 105 mmol/L (98-107); Estimated GFR 76.31 (mL/min/1.73m2); Glucose 134 mg/dL (74-106); Magnesium 1.9 mg/dL (1.8-2.4); Potassium 3.4 mmol/L (3.5-5.1); Sodium 142 mmol/L (136-145); TSH (W/Ref FT4) 1.03 uIU/mL (0.36-3.74); Total Protein 7.5 g/dL (6.4-8.2)
[2024-06-27 15:20] VITALS: RESP 20
== END 2024-06-27 15:38 | disposition home or self-care (01) ==
PROVIDERS: Emergency Provider Nurse Practitioner Family; PCP Neuromusculoskeletal Medicine & OMM
DX: J09.X2 Influenza due to identified novel influenza A virus with other respiratory manifestations (principal); E87.6 Hypokalemia; R53.83 Other fatigue
CPT/HCPCS: 80053; 87637; 93005; 99285; 71046; 83735; 84443; 85025; 93010; 99284

== ENCOUNTER 2024-07-06 12:28 | Observation (INO) | payer MEDICARE, BC, SELFPAY ==
[2024-07-06] VITALS (22 sets, daily range): BP systolic 157–202; BP diastolic 74–85; PULSE 83–100; RESP 6–21; TEMP 36.3–37.6; O2SAT 96–100
--- NOTE | 2024-07-06 12:30 | RT.EKG_ITS ---
APPROVED REPORT Exam: Resting ECG Reason for Exam: chest pressure Patient Location: E HR:99 bpm ECG Measurements Heart Rate 99 AXIS FL 134 P 67 QRSd 77 QRS 12 QT 338 T 44 QTc 435 Conclusion Sinus rhythm. 99 normal axis no stemi
--- NOTE | 2024-07-06 12:45 | DI.RAD_ITS ---
Exam(s) XR PORTABLE CHEST AP EXAM: XR PORTABLE CHEST AP CLINICAL HISTORY: Chest pain TECHNIQUE: 2D digital imaging was performed. COMPARISON: CR XR CHEST 2V PA LATERAL from 06/27/2024 FINDINGS: LUNGS: Clear. No pleural abnormality seen. HEART: Normal size. AORTA: Normal diameter. BONES: Prominent osteophytes in the thoracic spine. Soft tissues: Unremarkable. IMPRESSION: No acute findings. DATA REPOSITORY: RADIATION DOSE DELIVERED:
--- NOTE | 2024-07-06 12:52 | ED.GENADUL_ITS ---
Discharge Plan Disposition Patient Disposition: Admit to [facility] Condition: Fair Condition: Improving Discharge Details Chief Complaint: Chest Pain Clinical Impression: Elevated troponin I level, Chest pain, Flu Admit Date/Time: 07/06/24 15:15 Admit Provider: Suleiman Gardiner Attending Provider: Suleiman Gardiner Primary Care Provider: Keiko Wiggins ED Provider: Ryan Marcano Discharge Data Discharge Date/Time-TO BE ENTERED AT DEPARTURE: 07/06/24 16:16 HPI General Date/Time Provider Initiated Documentation: 07/06/24 12:37 . Limitations to Documentation: no limitations . Information obtained by: patient and old records reviewed . HPI Narrative: 74-year-old female with past medical history of depression, anemia presents for evaluation of fatigue. She reports that 9 days ago she was in the emergency department with similar symptoms, overall body aches, cough, headaches and was diagnosed with influenza. At that time she was outside the window for treatment with Tamiflu. She reports that her cough is not as bad. She reports severe fatigue. She says that she has been having some muscle cramping that is concerning and she reports some pain on the right side of her chest that has been ongoing for the last couple of days. It feels worse when she touches the area and she feels like when she touches the area she has to cough. Related Data Home Medications ?Medication ?Instructions ?Recorded ?Confirmed ezetimibe 10 mg tablet (Zetia) 10 mg PO DAILY 02/25/13 07/06/24 calcium carbonate (Calcium 600) 600 mg PO BID 08/06/13 07/06/24 iron 18 mg tablet 25 mg PO DAILY 08/06/13 07/06/24 zolpidem 12.5 mg tablet,extended 12.5 mg PO HS PRN PRN 08/06/13 07/06/24 release,multiphase multivitamin (Daily Multi-Vitamin 1 ea PO DAILY 01/28/14 07/06/24 tablet) Lactobacillus acidophilus 1 tab PO DAILY 12/27/23 07/06/24 famotidine 20 mg tablet 20 mg PO DAILY #30 tabs 07/08/24 lisinopril 5 mg tablet 5 mg PO DAILY #30 tabs 07/08/24 Previous Rx's ?Medication ?Instructions ?Recorded famotidine 20 mg tablet 20 mg PO DAILY #30 tabs 07/08/24 lisinopril 5 mg tablet 5 mg PO DAILY #30 tabs 07/08/24 Allergies Allergy/AdvReac Type Severity Reaction Status Date / Time No Known Allergies Allergy Unverified 07/06/24 12:35 General Stated Complaint: Chest Pain RUSTAM: 3 Exam Narrative Exam Narrative: Review of Systems: All systems reviewed & are unremarkable except as noted in HPI and below Well-developed, no acute distress NCAT PERRL, normal conjunctiva Dry mucous membranes RRR mild right-sided chest wall tenderness Unlabored respiratory effort clear bilaterally Nondistended abdomen Course Vital Signs Vital signs: Vital Signs Temperature 36.6 C 07/06/24 12:33 Pulse 100 H 07/06/24 12:33 Respiratory Rate 18 07/06/24 12:33 Blood Pressure 170/80 H 07/06/24 12:33 Pulse Oximetry 96 07/06/24 12:33 Temperature 36.6 C 07/06/24 12:33 Temperature Source Oral 07/06/24 12:33 Pulse 100 H 07/06/24 12:33 Respiratory Rate 18 07/06/24 12:33 Blood Pressure 170/80 H 07/06/24 12:33 Pulse Oximetry 96 07/06/24 12:33 Medical Decision Making Emergent evaluation of fatigue and ongoing symptoms after flu diagnosis. Initial differential includes both postviral syndrome, electrolyte derangement, dehydration, pneumonia. I reviewed her medical record from the last visit. At that time she had some mild hypokalemia at 3.4. She was influenza A positive. Her chest x-ray did not reveal a focal consolidation. Will repeat lab work. Chest x-ray and reassess. Chest pain today is right-sided, reproducible, low suspicion for ACS. EKG independently interpreted: Sinus 99 normal axis no STEMI. Lab work reviewed, no leukocytosis or anemia. There is a slight increase in her platelet count. Electrolytes are without derangement. Kidney function is normal. Magnesium and potassium are within normal limits. Her first troponin was noted to be elevated. Although the chest pain does not seem to be cardiac in nature. Her age would be her only risk factor for ACS and she has not had prior cardiac workup. A repeat troponin will be drawn. Have a low suspicion for postviral myocarditis given the lack of supporting clinical symptoms. repeat trop flat. Will admit to hospital for further work up. Quality:SDOK Health Related Social Needs: Health related social needs housing instability, house d, with risk of homelessness (Z59.811), problems finding work (Z56.9) PFSH All Active Problems (Updated 07/08/24 @ 14:42 by Ryan Marcano MD) Chest pain (Acute) Elevated troponin I level (Acute) Influenza A (Acute) Flu (Acute) Senile hyperkeratosis (Acute) Iron deficiency (Acute) Insomnia (Acute) Hyperlipidemia (Acute) Hearing loss (Acute) Fatigue (Acute) Epigastric pain (Acute) Depression (Chronic) Overactive bladder (Acute) Back pain (Acute) Atrophic vaginitis (Acute) Chronic pain (Chronic) Abdominal pain in female (Acute) Anemia (Chronic) Hematuria (Acute) Hip abductor tendinitis (Acute) S/P total hip arthroplasty (Acute) Right Knee effusion, right (Acute) Degenerative arthritis of spine (Acute) Medical History Hx of difficult intubation I was difficult to initubate because of my bone structure, a torus bone grownth I had a procedure during the whole hepatitis incident in the s, that I was so relaxed that I flat-lined [facility] aware of this for anesthesia had consultation with pt. 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 Hx of rheumatic fever PT. STATES WHEN SHE WAS 11 SHE HAD RF, AND WAS ON PROPHYLACTIC (BICILLIN) ABX X 20 YEARS Nuclear sclerotic cataract of right eye Esophageal reflux resolved Arthritis Surgical History History of total left hip replacement (08/27/19) History of hip replacement 2009 right hip with H/O left wrist surgery Reconstructive surgery after suicidal attempt H/O exploratory laparotomy Pilonidal cyst History of tonsillectomy History of hernia repair Status post carpal tunnel release of both wrists Status post total replacement of right hip Status post cataract extraction and insertion of intraocular lens of left eye (07/13/18) Status post cataract extraction and insertion of intraocular lens of right eye (06/29/18) Vaginal hysterectomy Colonoscopy - MAC (08/23/17) Appendectomy Social History Smoking/Tobacco Use Status: Former Tobacco Use Quit Date: 06/19/78 Tobacco: How many years used: 15 Smoking risk assessment performed?: Yes Alcohol Intake: never Drug use: Never Housing: apartment Current gender identity: female Do you feel safe at home: Yes Do you feel safe in your relationship?: Yes Female Reproductive History Menstrual control method: progestin IUCD
--- NOTE | 2024-07-06 13:39 | DI.VRAD_ITS ---
PROCEDURE INFORMATION: Exam: XR Chest Exam date and time: 07/06/2024 1:24 PM Age: 74 years old Clinical indication: Other: Chest quinton and previous flu TECHNIQUE: Imaging protocol: Radiologic exam of the chest. Views: 1 view. Other technique: Portable exam. COMPARISON: CR XR CHEST 2V PA LATERAL 06/27/2024 2:50 PM. Report not available. FINDINGS: Lungs: Unremarkable. No consolidation. Pleural spaces: Unremarkable. No pleural effusion. No pneumothorax. Heart/Mediastinum: Unremarkable. No cardiomegaly. Bones/joints: Unremarkable. IMPRESSION: No definite acute abnormality in the chest. Dictated and Authenticated by: Fiorella Mireles MD. Ordering:[facility] Jeet Padron MD
[2024-07-06 14:05] LABS: Abs Immature Grans 0.02 10^3/uL (0.0-0.06); Absolute Basophil Count 0.03 10^3/uL (0.0-0.2); Absolute Eosinophil Count 0.05 10^3/uL (0.0-0.7); Absolute Lymphocyte Count 2.63 10^3/uL (1.2-3.4); Absolute Monocyte Count 0.57 10^3/uL (0.1-0.8); Absolute Neutrophil Count 4.65 10^3/uL (1.2-6.7); Basophils % 0.4 %; Eosinophils % 0.6 %; HGB 11.4 g/dL (11.2-15.7); Immature Grans % 0.3 %; Lymphocytes % 33.1 %; MCHC 31.7 % (32.0-36.0); MCV 85 fL (80-95); MPV 8.4 fL (8.0-11.0); Monocytes % 7.2 %; Neutrophils % 58.4 %; Platelet Count 639 10^3/uL (130-400); RBC 4.22 10^6/uL (3.93-5.22); RDW 15.1 % (11.7-14.6); RDW-SD 46.8 fL; WBC 7.95 10^3/uL (4.4-10.8)
[2024-07-06 14:28] LABS: ALT 23 U/L (14-59); AST 16 U/L (15-37); Albumin 3.9 g/dL (3.4-5.0); Alkaline Phosphatase 83 U/L (46-116); Anion Gap 10.5 mmol/L (3-11); BUN 5 mg/dL (7-18); Bilirubin, Total 0.44 mg/dL (0.2-1.0); CO2 26.5 mmol/L (21.0-32.0); CREATININE 0.9 mg/dL (0.55-1.02); Calcium 10.1 mg/dL (8.5-10.1); Chloride 107 mmol/L (98-107); Estimated GFR 66.26 (mL/min/1.73m2); Glucose 100 mg/dL (74-106); Magnesium 2.2 mg/dL (1.8-2.4); Potassium 3.7 mmol/L (3.5-5.1); Sodium 144 mmol/L (136-145); Total Protein 7.9 g/dL (6.4-8.2)
[2024-07-06 14:33] LABS: Troponin I 154 ng/L (<or=51)
[2024-07-06] MEDS: Aspirin 325 MG TAB PO (14:47)
[2024-07-06 15:04] LABS: Troponin I 143 ng/L (<or=51)
--- NOTE | 2024-07-06 16:01 | W.PM.HP.N ---
Date of service: 07/06/24 Time of Service: 16:01 Assessment and Plan Assessment and plan (1) Influenza A: Status: Acute Assessment and plan: Outside of the window for treatment No radiographic evidence of infiltrate or consolidation Oxygenating well on room air (2) Elevated troponin I level: Status: Acute Assessment and plan: Troponins remained flat in the 140s with no acute EKG changes. Hemodynamically she is stable Echocardiogram when available, cardiology follow-up outpatient (3) Anemia: Status: Chronic Assessment and plan: Hemoglobin 11.4 and hematocrit 36 (4) Iron deficiency: Status: Acute Assessment and plan: Takes iron supplementation and multivitamin Discussed with Dr. Gardiner History of Present Illness Narrative: This is a 74-year-old female patient past medical history significant for iron deficient anemia, hyperlipidemia, depression and fatigue who presents to the emergency department with ongoing symptoms of fatigue since being diagnosed 9 days ago with influenza. When she was seen originally she was already out of the window for treatment for influenza A. Her x-ray did not show any signs of pneumonia. Her workup today does show elevated troponin at 148. Repeat down to 143. She had no elevated white blood count no anemia electrolytes and kidney function within normal limits. She did have chest pain but it was reproducible and pleuritic there were no acute ST segment changes on her EKG. Chest x-ray repeated with no sign of infiltrate. Hospitalist services was contacted to admit her to the medical surgical unit for further monitoring Review of Systems All systems reviewed & are unremarkable except as noted in HPI and below PFSH All Active Problems (Updated 07/06/24 @ 16:05 by Bridget Arshad NP) Elevated troponin I level (Acute) Influenza A (Acute) Flu (Acute) Senile hyperkeratosis (Acute) Iron deficiency (Acute) Insomnia (Acute) Hyperlipidemia (Acute) Hearing loss (Acute) Fatigue (Acute) Epigastric pain (Acute) Depression (Chronic) Overactive bladder (Acute) Back pain (Acute) Atrophic vaginitis (Acute) Chronic pain (Chronic) Abdominal pain in female (Acute) Anemia (Chronic) Hematuria (Acute) Hip abductor tendinitis (Acute) S/P total hip arthroplasty (Acute) Right Knee effusion, right (Acute) Degenerative arthritis of spine (Acute) Medical History Hx of difficult intubation I was difficult to initubate because of my bone structure, a torus bone grownth I had a procedure during the whole hepatitis incident in the 70's, that I was so relaxed that I flat-lined Alton Delgado aware of this for anesthesia had consultation with pt. 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 Hx of rheumatic fever PT. STATES WHEN SHE WAS 11 SHE HAD RF, AND WAS ON PROPHYLACTIC (BICILLIN) ABX X 20 YEARS Nuclear sclerotic cataract of right eye Esophageal reflux resolved Arthritis Surgical History History of total left hip replacement (08/27/19) History of hip replacement 2009 right hip with H/O left wrist surgery Reconstructive surgery after suicidal attempt H/O exploratory laparotomy Pilonidal cyst History of tonsillectomy History of hernia repair Status post carpal tunnel release of both wrists Status post total replacement of right hip Status post cataract extraction and insertion of intraocular lens of left eye (07/13/18) Status post cataract extraction and insertion of intraocular lens of right eye (06/29/18) Vaginal hysterectomy Colonoscopy - MAC (08/23/17) Appendectomy Social History Smoking/Tobacco Use Status: Former Tobacco Use Quit Date: 06/19/78 Tobacco: How many years used: 15 Smoking risk assessment performed?: Yes Alcohol Intake: never Drug use: Never Housing: apartment Current gender identity: female Do you feel safe at home: Yes Do you feel safe in your relationship?: Yes Female Reproductive History Menstrual control method: progestin IUCD Meds Allergies and Home Medications Allergies Allergy/AdvReac Type Severity Reaction Status Date / Time No Known Allergies Allergy Unverified 07/06/24 12:35 Home Medications ?Medication ?Instructions ?Recorded ?Confirmed ?Type ezetimibe 10 mg tablet (Zetia) 10 mg PO DAILY 02/25/13 07/06/24 History calcium carbonate (Calcium 600) 600 mg PO BID 08/06/13 07/06/24 History iron 18 mg tablet 25 mg PO DAILY 08/06/13 07/06/24 History zolpidem 12.5 mg tablet,extended 12.5 mg PO HS PRN PRN 08/06/13 07/06/24 History release,multiphase multivitamin (Daily Multi-Vitamin 1 ea PO DAILY 01/28/14 07/06/24 History tablet) Lactobacillus acidophilus 1 tab PO DAILY 12/27/23 07/06/24 History Exam Narrative Exam Narrative: Elderly female of stated age in no acute distress very thin head is atraumatic eyes nonicteric noninjected skin is tanned neck with full range of motion respirations even and unlabored breath sounds are clear bilaterally with no wheezing or rhonchi cardiac regular rate and rhythm no murmurs appreciated abdomen is flat nontender her extremities are without edema moves all extremities equally skin with no rashes or lesions neurologic she is awake alert oriented no focal deficits psychiatric appropriate mood and affect Results Labs 07/06/24 14:00 07/06/24 14:00 Labs: Laboratory Results - last 24 hr 07/06/24 07/06/24 14:00 14:40 WBC 7.95 RBC 4.22 Hgb 11.4 Hct 36.0 MCV 85 MCH 27.0 MCHC 31.7 L RDW 15.1 H Plt Count 639 H MPV 8.4 Immature Gran % 0.3 Neutrophils % 58.4 Lymphocytes % 33.1 Monocytes % 7.2 Eosinophils % 0.6 Basophils % 0.4 Nucleated RBC % 0.0 Absolute Neutrophils 4.65 Absolute Lymphocytes 2.63 Absolute Monocytes 0.57 Absolute Eosinophils 0.05 Absolute Basophils 0.03 Sodium 144 Potassium 3.7 Chloride 107 Carbon Dioxide 26.5 Anion Gap 10.5 BUN 5 L Creatinine 0.9 Est GFR (CKD-EPI 2020) 66.26 Glucose 100 Calcium 10.1 Magnesium 2.2 Total Bilirubin 0.44 AST 16 ALT 23 Alkaline Phosphatase 83 Troponin I 154 H* 143 H* Total Protein 7.9 Albumin 3.9 Last Vital Signs Temp 36.6 C 07/06/24 12:33 Pulse 85 07/06/24 15:19 Resp 10 L 07/06/24 15:19 BP 174/77 H 07/06/24 15:19 Pulse Ox 99 07/06/24 15:19 Time Spent Time spent with Patient: 40-54 minutes Time was spent: preparing to see the patient(eg.review tests), obtaining and/or reviewing separately otained hiistory, ordering medications,tests, procedures, indepentently interpreting results and counseling the patient
--- NOTE | 2024-07-06 16:04 | W.PC.ACHO ---
Registration Status: Primary Language: Preferred Language: ED Information & Data Chief Complaint Chest Pain 07/06/24 12:52 Triage Note Patient complaining of chest 07/06/24 12:33 pressure and weakness for 2 weeks. HAs been seen here recently for same problem Medical / Surgical History (Last Reviewed 07/06/24 @ 13:24 by Ryan Marcano MD) Hx of difficult intubation Hx of hepatitis Hx of rheumatic fever Nuclear sclerotic cataract of right eye Esophageal reflux Arthritis (Last Reviewed 07/06/24 @ 13:24 by Ryan Marcano MD) History of total left hip replacement (08/27/19) History of hip replacement H/O left wrist surgery H/O exploratory laparotomy Pilonidal cyst History of tonsillectomy History of hernia repair Status post carpal tunnel release of both wrists Status post total replacement of right hip Status post cataract extraction and insertion of intraocular lens of left eye (07/13/18) Status post cataract extraction and insertion of intraocular lens of right eye (06/29/18) Vaginal hysterectomy Colonoscopy - MAC (08/23/17) Appendectomy Most Recent Vital Signs Temperature 98 F 07/06/24 12:33 Temperature Source Oral 07/06/24 12:33 Pulse 85 07/06/24 15:19 Pulse 92 H 07/06/24 15:19 Respiratory Rate 10 L 07/06/24 15:19 Blood Pressure 174/77 H 07/06/24 15:19 Blood Pressure Mean 112 07/06/24 15:19 Pulse Oximetry 99 07/06/24 15:19 Allergies No Known Allergies Allergy (Unverified 07/06/24 12:35) Precautions Isolation Standard precaution 07/06/24 12:36 IV IV Catheter Type [Right Saline Lock Antecubital] IV Catheter Gauge [Right 18 Antecubital] Diagnostics 07/06/24 07/06/24 07/06/24 Range/Units 17:00 14:40 14:00 WBC 7.95 (4.4-10.8) 10^3/uL RBC 4.22 (3.93-5.22) 10^6/uL Hgb 11.4 (11.2-15.7) g/dL Hct 36.0 (36.0-46.0) % MCV 85 (80-95) fL MCH 27.0 (27.0-33.0) pg MCHC 31.7 L (32.0-36.0) % RDW 15.1 H (11.7-14.6) % Plt Count 639 H (130-400) 10^3/uL MPV 8.4 (8.0-11.0) fL Immature Gran % 0.3 % Neutrophils % 58.4 % Lymphocytes % 33.1 % Monocytes % 7.2 % Eosinophils % 0.6 % Basophils % 0.4 % Nucleated RBC % 0.0 (0.0-0.3) % Absolute Neutrophils 4.65 (1.2-6.7) 10^3/uL Absolute Lymphocytes 2.63 (1.2-3.4) 10^3/uL Absolute Monocytes 0.57 (0.1-0.8) 10^3/uL Absolute Eosinophils 0.05 (0.0-0.7) 10^3/uL Absolute Basophils 0.03 (0.0-0.2) 10^3/uL Sodium 144 (136-145) mmol/L Potassium 3.7 (3.5-5.1) mmol/L Chloride 107 (98-107) mmol/L Carbon Dioxide 26.5 (21.0-32.0) mmol/L Anion Gap 10.5 (3-11) mmol/L BUN 5 L (7-18) mg/dL Creatinine 0.9 (0.55-1.02) mg/dL Est GFR (CKD-EPI 2020) 66.26 (mL/min/1.73m2) Glucose 100 (74-106) mg/dL Calcium 10.1 (8.5-10.1) mg/dL Magnesium 2.2 (1.8-2.4) mg/dL Total Bilirubin 0.44 (0.2-1.0) mg/dL AST 16 (15-37) U/L ALT 23 (14-59) U/L Alkaline Phosphatase 83 (46-116) U/L Troponin I Pending 143 H* 154 H* (<or=51) ng/L Total Protein 7.9 (6.4-8.2) g/dL Albumin 3.9 (3.4-5.0) g/dL Intake and Output - 24 Hour Total 07/06/24 12:28 thru 07/06/24 13:56 Intake Total 10 Balance 10 Weight 118 lb Intake: IV 10 Falls Risk Assessment Contributing Factors No Factors 07/06/24 13:52 Fall Total Score 0 07/06/24 13:52 Level of Risk Standard/Low Risk 07/06/24 13:52 v v v v v v v v v Sending and/or Receiving Nurses: Please use comment section below to note any information pertinent to the patient hand-off not included above. Information / Comments: ultrasound guided IV 18g Report received from: Linda Hernandez RN
[2024-07-06 17:39] LABS: Troponin I 143 ng/L (<or=51)
[2024-07-06 19:03] LABS: COVID-19 PCR Negative (Negative); Influenza A PCR Negative (Negative); Influenza B PCR Negative (Negative); RSV PCR Negative (Negative)
[2024-07-06 19:09] LABS: Source Nasopharynx
[2024-07-06] MEDS: Normal Saline Flush 10 ML SYR IVP ×2 (20:00→20:43)
[2024-07-06] MEDS: Acetaminophen 325 MG TAB PO (20:42)
[2024-07-06] MEDS: Calcium Carbonate 1.5 GM TAB PO (20:42)
[2024-07-06] MEDS: Zolpidem 5 MG TAB 10 MG PO (23:24)
[2024-07-07] VITALS (8 sets, daily range): BP systolic 121–200; BP diastolic 60–90; PULSE 69–107; RESP 14–20; TEMP 36.6–37; O2SAT 96–100
[2024-07-07 06:53] LABS: HCT 34.1 % (36.0-46.0); MCH 27.3 pg (27.0-33.0); MCHC 32.3 % (32.0-36.0); MCV 85 fL (80-95); MPV 8.8 fL (8.0-11.0); Platelet Count 593 10^3/uL (130-400); RBC 4.03 10^6/uL (3.93-5.22); RDW 15.4 % (11.7-14.6); RDW-SD 47.5 fL; WBC 5.61 10^3/uL (4.4-10.8)
[2024-07-07 07:20] LABS: Anion Gap 8.1 mmol/L (3-11); BUN 6 mg/dL (7-18); CO2 26.9 mmol/L (21.0-32.0); CREATININE 0.8 mg/dL (0.55-1.02); Calcium 9.7 mg/dL (8.5-10.1); Chloride 110 mmol/L (98-107); Estimated GFR 76.31 (mL/min/1.73m2); Glucose 105 mg/dL (74-106); Potassium 3.8 mmol/L (3.5-5.1); Sodium 145 mmol/L (136-145)
--- NOTE | 2024-07-07 07:45 | RT.EKG_ITS ---
APPROVED REPORT Exam: Resting ECG Reason for Exam: chest pain Patient Location: I HR:98 bpm ECG Measurements Heart Rate 98 AXIS SD 121 P 13 QRSd 84 QRS -14 QT 359 T 34 QTc 457 Conclusion Sinus rhythm...normal P axis, V-rate 60- 99 Normal Electrocardiogram
[2024-07-07] MEDS: Lisinopril 5 MG TAB PO (08:13)
[2024-07-07] MEDS: Aspirin E.C. 81 MG TABEC PO (08:13)
[2024-07-07] MEDS: Enoxaparin 40 MG/0.4 ML SYR SC (08:13)
[2024-07-07] MEDS: Calcium Carbonate 1.5 GM TAB PO ×2 (08:13→19:50)
[2024-07-07] MEDS: Multivitamin TAB 1 TAB PO (08:13)
[2024-07-07] MEDS: Lactobacillus Acidophilus CAP 1 CAP PO (08:13)
[2024-07-07] MEDS: Ezetimibe 10 MG TAB PO (08:13)
[2024-07-07] MEDS: Normal Saline Flush 10 ML SYR IVP (08:14)
[2024-07-07 08:49] LABS: Troponin I 149 ng/L (<or=51)
--- NOTE | 2024-07-07 12:42 | PHA.REVIEW2 ---
Pharmacy Admission Review Admission Clinical Review Admission Pharmacy Review: Elevated troponin I level (Acute) Influenza A (Acute) Iron deficiency (Acute) No Known Allergies Allergy (Unverified 07/06/24 12:35) Resuscitation Status Full Code Height 5 ft 5 in Weight 53.24 kg Pharmacy Admission Review Renal Dosing Renal Dosing: BUN 6 mg/dL (7-18) L 07/07/24 06:20 Creatinine 0.8 mg/dL (0.55-1.02) 07/07/24 06:20 Medications needing adjustments: Reviewed (CrCl 40.23 mL/min) List of meds needing interventions: Current medications are okay Anticoagulation Anticoagulation: Hgb 11.0 g/dL (11.2-15.7) L 07/07/24 06:20 Hct 34.1 % (36.0-46.0) L 07/07/24 06:20 Plt Count 593 10^3/uL (130-400) H 07/07/24 06:20 Creatinine 0.8 mg/dL (0.55-1.02) 07/07/24 06:20 DVT Prophylaxis: Reviewed (PLT decreased from 639) Medications: Enoxaparin (40mg daily) Relevant Labs Relevant Labs: Sodium 145 mmol/L (136-145) 07/07/24 06:20 Potassium 3.8 mmol/L (3.5-5.1) 07/07/24 06:20 Chloride 110 mmol/L (98-107) H 07/07/24 06:20 Magnesium 2.0 mg/dL (1.8-2.4) 07/07/24 06:20 Electrolytes, C-Reactive P, ESR: Reviewed Cardiac Review Cardiac Review: Troponin I 149 ng/L (<or=51) H* 143 ng/L (<or=51) H* 143 ng/L (<or=51) H* 154 ng/L (<or=51) H* 07/07/24 08:08 07/06/24 17:10 07/06/24 14:40 07/06/24 14:00 Blood Pressure 188/88 1237 Blood Pressure 156/80 1153 Blood Pressure 185/85 0816 Blood Pressure 200/90 0715 Blood Pressure 128/62 0402 BP, HR, EF%: Reviewed (HR 107) List meds needing interventions: Has order for lisinopril 5mg daily QTc Review QTc: Reviewed (435 from 07/06/24) IV to PO Switch IV Medications: Reviewed Home Meds Home Med List reviewed: Intervened Relevent Home Meds Not ordered & why?: Changed iron 18mg to patients own order. Called nurse to see if patient could bring in, per nurse patient currently unable to have brought in. Order for patients Zolpidem was changed to 10mg HS KENYA by overnight pharmacy, looks like they thought the 12.5mg CR tabs were non-form. I changed the order back to patients home dose, 12.5mg CR HS PRN. Unsure why it was changed from PRN to KENYA. Current Meds Current Medication Order Review: Intervened Comments: Changed zolpidem order (see home meds section above)
[2024-07-07] MEDS: Calcium Carbonate *TUMS* 500 MG CHEW CH ×2 (13:13→17:34)
--- NOTE | 2024-07-07 14:48 | INITIAL_ITS ---
Date of service: 07/07/24 Time of Service: 14:00 Care Management Initial Assmt Initial Assessment Reason for Hospitalization: chest pain Functional Status/Living Situation Patient Presentation: Ashok was admitted to observation status through the ED yesterday afternoon with c/o fatigue. She was in the ED 9 days prior and was dx with the flu. When she presented yesterday she reported an improvement in her couagh, but c/o severe fatigue, muscle cramping and chest pain on the right side of her chest for a couple of days. She had an elevation in her troponin, but her EKG showed NSR an d no stemi. She was admitted for further monitoring. She will have an echocardiogram on Monday Town of Residence: [facility] Resides with: Alone Significant Other/Family: Local (sister Francoise, friend Dolores Ward is [employer] contact) Natural Supports: Ashok mentioned that she is very independent, and prefers it that way. 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) Instrumental Activities of Daily Living (ADLs): Independent Medications Medication Management: No Issues/Barriers identified Advance Directives Advance Directives: Do you have an Advance Directive: N 03/04/13 12:15 AD On File at [facility]: N 09/14/12 14:17 Date Asked 07/06/24 07/06/24 12:37 AD Date Reviewed COLST On File at [facility] COLST Date Scanned Code Status Resuscitation Status Full Code Insurance Coverage/Financial Issues Insurance: Medicare A&B, BC/BS [place] Care Team Visit Care Team Role Provider Type Shaw Scott Primary Care Provider OSTEOPATHIC DOCTOR Ryan Marcano MD Emergency Provider [facility] STAFF PHYSICIAN Suleiman Gardiner MD Admit Provider [facility] STAFF PHYSICIAN Attending Provider Other: PCP is now Mildred [facility]lvarez at [facility] in [facility] notified Discharge Potential Discharge Needs: PCP F/U Appt and Other (echocardiogram scheduled for tomorrow 07/08) Anticipated Barriers to Discharge: None Identified Patient/Family Education Needs: Review discharge instructions, discuss Ask Me Three Transportation: Private vehicle Plan: Anticipate that Ashok will be discharged home with no new services. She will f/u with her PCP and continue per her plan of care. She will transport in a private vehicle. CM will continue to follow. Social Determinants of Health Screening Social Determinants of Health last assessed: 07/07/24 Will the Patient Participate in the Screening?: Yes Do you worry about having a steady place to live?: yes What is your living situation today?: I have housing today, but am worried about losing it Problems where you live: no known problems In the past 12 months, have you had to go without electric, gas, oil or water in your home?: no Have you or anyone in your house had to go without enough food to eat?: no Has lack of transportation kept you from medical appointments or from doing things needed for daily living?: no Has anyone in your life made you feel unsafe or unsupported?: no How hard is it for you to pay for the very basics like food, housing, medical care, and heating? Would you say it is:: Not hard at all Do you want help finding or keeping work or a job?: Yes, help finding work If for any reason you need help with day-to-day activities such as bathing, preparing meals, shopping, managing finances, etc., do you get the help you need?: I don?t need any help How often do you feel lonely or isolated from those around you?: Never Do you speak a language other than [place] at home?: No Does the patient want assistance with any of the above?: No Health Related Social Needs Health related social needs: housing instability, housed, with risk of homelessness (Z59.811) and problems finding work (Z56.9) PFSH All Active Problems (Updated 07/07/24 @ 14:57 by Bridget Arshad NP) Chest pain (Acute) Elevated troponin I level (Acute) Influenza A (Acute) Flu (Acute) Senile hyperkeratosis (Acute) Iron deficiency (Acute) Insomnia (Acute) Hyperlipidemia (Acute) Hearing loss (Acute) Fatigue (Acute) Epigastric pain (Acute) Depression (Chronic) Overactive bladder (Acute) Back pain (Acute) Atrophic vaginitis (Acute) Chronic pain (Chronic) Abdominal pain in female (Acute) Anemia (Chronic) Hematuria (Acute) Hip abductor tendinitis (Acute) S/P total hip arthroplasty (Acute) Right Knee effusion, right (Acute) Degenerative arthritis of spine (Acute) Medical History Hx of difficult intubation I was difficult to initubate because of my bone structure, a torus bone grownth I had a procedure during the whole hepatitis incident in the 70's, that I was so relaxed that I flat-lined Alton Delgado aware of this for anesthesia had consultation with pt. 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 Hx of rheumatic fever PT. STATES WHEN SHE WAS 11 SHE HAD RF, AND WAS ON PROPHYLACTIC (BICILLIN) ABX X 20 YEARS Nuclear sclerotic cataract of right eye Esophageal reflux resolved Arthritis Surgical History History of total left hip replacement (08/27/19) History of hip replacement 2009 right hip with H/O left wrist surgery Reconstructive surgery after suicidal attempt H/O exploratory laparotomy Pilonidal cyst History of tonsillectomy History of hernia repair Status post carpal tunnel release of both wrists Status post total replacement of right hip Status post cataract extraction and insertion of intraocular lens of left eye (07/13/18) Status post cataract extraction and insertion of intraocular lens of right eye (06/29/18) Vaginal hysterectomy Colonoscopy - MAC (08/23/17) Appendectomy Social History Smoking/Tobacco Use Status: Former Tobacco Use Quit Date: 06/19/78 Tobacco: How many years used: 15 Smoking risk assessment performed?: Yes Alcohol Intake: never Drug use: Never Housing: apartment Current gender identity: female Do you feel safe at home: Yes Do you feel safe in your relationship?: Yes Female Reproductive History Menstrual control method: progestin IUCD Readmission Within the Past 30 Days Yes or No: No
--- NOTE | 2024-07-07 14:56 | W.PM.PROGNOT ---
Date of Service Date of service: 07/24/24 Time of Service: 14:56 Assessment and Plan Assessment and plan (1) Chest pain: Status: Acute Assessment and plan: episode of chest pain today at rest, no EKG changes, troponin remains stable and unchanged, resolved with no intervention reoccurrence of symptoms at lunch. self limiting and resolved spontaneously started on pantoprazole, TUMS prn added. (2) Influenza A: Status: Acute Assessment and plan: Outside of the window for treatment No radiographic evidence of infiltrate or consolidation Oxygenating well on room air (3) Elevated troponin I level: Status: Acute Assessment and plan: Troponins remained flat in the 140s with no acute EKG changes. Hemodynamically she is stable Echocardiogram when available, cardiology follow-up outpatient (4) Anemia: Status: Chronic Assessment and plan: stable. Hemoglobin 11.4 and hematocrit 36 (5) Iron deficiency: Status: Acute Assessment and plan: Takes iron supplementation and multivitamin Discussed with Dr. Gardiner Subjective Subjective Patient reports: still having pain (right sided chest pain while eating), voiding w/o difficulty and afebrile; denies shortness of breath Exam Narrative Exam Narrative: Elderly female of stated age in no acute distress very thin head is atraumatic eyes nonicteric noninjected skin is tanned neck with full range of motion respirations even and unlabored breath sounds are clear bilaterally with no wheezing or rhonchi cardiac regular rate and rhythm no murmurs appreciated abdomen is flat nontender her extremities are without edema moves all extremities equally skin with no rashes or lesions neurologic she is awake alert oriented no focal deficits psychiatric appropriate mood and affect Objective Last Vital Signs Temp 36.7 C 07/07/24 12:37 Pulse 107 H 07/07/24 12:37 Resp 20 07/07/24 12:37 BP 188/88 H 07/07/24 12:37 Pulse Ox 100 07/07/24 12:37 Laboratory Results - last 24 hr 07/06/24 07/06/24 07/06/24 14:40 17:10 18:20 WBC RBC Hgb Hct MCV MCH MCHC RDW Plt Count MPV Sodium Potassium Chloride Carbon Dioxide Anion Gap BUN Creatinine Est GFR (CKD-EPI 2020) Glucose Calcium Magnesium Troponin I 143 H* 143 H* COVID-19 Source Nasopharynx SARS-CoV-2 (PCR) Negative Influenza Type A (PCR) Negative Influenza Type B (PCR) Negative RSV (PCR) Negative 07/07/24 07/07/24 06:20 08:08 WBC 5.61 RBC 4.03 Hgb 11.0 L Hct 34.1 L MCV 85 MCH 27.3 MCHC 32.3 RDW 15.4 H Plt Count 593 H MPV 8.8 Sodium 145 Potassium 3.8 Chloride 110 H Carbon Dioxide 26.9 Anion Gap 8.1 BUN 6 L Creatinine 0.8 Est GFR (CKD-EPI 2020) 76.31 Glucose 105 Calcium 9.7 Magnesium 2.0 Troponin I 149 H* COVID-19 Source SARS-CoV-2 (PCR) Influenza Type A (PCR) Influenza Type B (PCR) RSV (PCR) Time Spent with Patient Time Spent with Patient: 25-34 minutes Time was spent: preparing to see the patient(eg.review tests), obtaining and/or reviewing separately otained hiistory, ordering medications,tests, procedures, indepentently interpreting results and counseling the patient
[2024-07-07] MEDS: Zolpidem 10 MG TAB PO (20:16)
[2024-07-08 07:28] VITALS: BP 145/78; PULSE 63; RESP 16; TEMP 36.2; O2SAT 97
--- NOTE | 2024-07-08 08:30 | CMPROGNOTE_ITS ---
Date of service: 07/08/24 Time of Service: 08:31 Care Management Progress Note Progress Note Text Progress Note Text: Ashok was sitting up in bed when CM met with her. She was pleasant in interaction and was alert, oriented and easily engaged. Ashok stated that she is feeling better but has no appetite. She shared that this began when she was first diagnosed with Influenza about 2 weeks ago. She met with Hubert from [facility] this morning who informed her he would add supplements to her diet to increase her caloric and protein intake. Ashok was admitted because of elevated troponins. Four troponins were done and serial results were fairly flat ranging from 154 to 143. Her EKG ruled out an [place] and she is asymptomatic. Ashok had an Echocardiogram this morning and, pending results, may be discharged later today. Discharge Potential Discharge Needs: PCP F/U Appt Anticipated Barriers to Discharge: None Identified Patient/Family Education Needs: Review discharge instructions, discuss Ask Me Three Transportation: Private vehicle Plan: Anticipate that Ashok will be discharged home with no new services. She will f/u with her PCP and continue per her plan of care. She will transport in a private vehicle. CM will continue to follow Social Determinants of Health Screening Social Determinants of Health last assessed: 07/08/24 Will the Patient Participate in the Screening?: Yes Do you worry about having a steady place to live?: yes What is your living situation today?: I have housing today, but am worried about losing it Problems where you live: no known problems In the past 12 months, have you had to go without electric, gas, oil or water in your home?: no Have you or anyone in your house had to go without enough food to eat?: no Has lack of transportation kept you from medical appointments or from doing things needed for daily living?: no Has anyone in your life made you feel unsafe or unsupported?: no How hard is it for you to pay for the very basics like food, housing, medical care, and heating? Would you say it is:: Not hard at all Do you want help finding or keeping work or a job?: Yes, help finding work If for any reason you need help with day-to-day activities such as bathing, preparing meals, shopping, managing finances, etc., do you get the help you need?: I don?t need any help How often do you feel lonely or isolated from those around you?: Never Do you speak a language other than Bulgarian at home?: No Does the patient want assistance with any of the above?: No Health Related Social Needs Health related social needs: housing instability, housed, with risk of homelessness (Z59.811) and problems finding work (Z56.9)
[2024-07-08] MEDS: Lisinopril 5 MG TAB PO (09:18)
[2024-07-08] MEDS: Lactobacillus Acidophilus CAP 1 CAP PO (09:18)
[2024-07-08] MEDS: Enoxaparin 40 MG/0.4 ML SYR SC (09:18)
[2024-07-08] MEDS: Ezetimibe 10 MG TAB PO (09:19)
[2024-07-08] MEDS: Multivitamin TAB 1 TAB PO (09:19)
[2024-07-08] MEDS: Calcium Carbonate 1.5 GM TAB PO (09:19)
[2024-07-08] MEDS: Aspirin E.C. 81 MG TABEC PO (09:19)
[2024-07-08 10:57] VITALS: BP 156/72; PULSE 85; RESP 16; TEMP 36.7; O2SAT 96
[2024-07-08] MEDS: Famotidine 20 MG TAB PO (14:09)
[2024-07-08 14:56] VITALS: BP 158/74; PULSE 68; RESP 16; TEMP 36.6; O2SAT 98
--- NOTE | 2024-07-08 15:30 | DSE_ITS ---
Date of service: 07/08/24 Time of Service: 15:30 DS: Diagnosis Discharge Diagnosis (1) Chest pain: Status: Acute (2) Influenza A: Status: Acute (3) Elevated troponin I level: Status: Acute (4) Anemia: Status: Chronic (5) Iron deficiency: Status: Acute Discharge Plan Disposition Patient Disposition: Home Condition: Improving Discharge Details Reason For Visit: Elevated trop Admit Date/Time: 07/06/24 15:15 Admit Provider: Suleiman Gardiner Attending Provider: Suleiman Gardiner Primary Care Provider: Keiko Wiggins Hospital Course Hospital Course: This 74-year-old -[place] female with past medical history of GERD, hyperlipidemia, depression influenza on 06/27/2024 , chronic anemia on iron supplementation presented to the ED at [facility] on 07/06/2024 for evaluation of increased fatigue and muscle cramp on the right chest and back starting 2 days prior to presentation. Reported increased discomfort and cough to these areas with palpation. On presentation to the ED the patient was tachycardic at 100, hypertensive at 170/80, afebrile without any need for oxygen supplementation. The ED will count revealed a chest x-ray without acute findings, BMP and CBC were unremarkable except for thrombocytosis at 639. EKG showed normal sinus rhythm without signs of cardiac injury. Minimal ST segment depressions seen in V3 V4 V5 and V6. Troponins were elevated showing a flat trend x 2. The patient was low risk for ACS but due to age the hospitalist was consulted and patient admitted to the medical surgical floor with telemetry monitoring for evaluation and management of elevated troponins. During the stay, the patient was treated with lisinopril for ongoing high blood pressure readings; amlodipine should be considered outpatient if this does not work. Repeated troponin remained flat. The patient remained in normal sinus rhythm on telemetry with heart rates in the 70s. An echocardiogram was completed with the following results: LVEF 59% with normal LV function, without PFO nor segmental wall motion abnormalities. Trace of mitral and tricuspid regurgitation seen. RVSP was 25.6 mmHg. No pericardial effusion seen. The patient complained of decreased appetite and with her history of GERD she received a dose of Protonix and then was transitioned to famotidine. The patient is agreeable to follow-up with [facility] outpatient nutrition. The patient will be discharged home on famotidine renally dosed and lisinopril. The patient will need follow-up with her primary care practitioner within 7 days of discharge as well as a cardiology referral. Home Meds and New Rx's Prescriptions: New lisinopril 5 mg Tablet 5 mg PO DAILY Qty: 30 0RF famotidine 20 mg Tablet 20 mg PO DAILY Qty: 30 0RF Continued ezetimibe [Zetia] 10 MG tablet 10 mg PO DAILY Lactobacillus acidophilus Tablet,Chewable 1 tab PO DAILY calcium carbonate [Calcium 600] 600 MG tablet 600 mg PO BID iron 18 MG tablet 25 mg PO DAILY zolpidem 12.5 MG tablet,ext release multiphase 12.5 mg PO HS PRN PRN multivitamin [Daily Multi-Vitamin] 1 EACH tablet 1 ea PO DAILY Discharge Instructions Instructions: Chest Pain (DC) Stand Alone Forms: Nursing Discharge Form Referrals: Hubert Cat RDN [SCHOOL BUS OPERATOR] - (Decreased food intake weight loss in the setting of chronic anemia Hx and recent URI, Please call to make a follow up appointment.) Keiko Wiggins [Primary Care Provider] - 07/15/24 2:00 pm Emily Zaragoza MD [ [facility] STAFF PHYSICIAN] - (I have left a voicemail to the office to call you to make a follow up appointment for 1 to 2 weeks.) Activity:: Activity as Tolerated Equipment/Supplies:: No Equipment Needed Diet:: heart healthy Discharge Orders Discharge Orders: Discharge Order (Routine); Ordered 07/08/24 Ordered By: Elsie Beatty DS: Summary Time Spent with Patient providing and/or coordinating discharge services: Greater than 30 minutes Status at Discharge Functional status at discharge: independent ambulation Overall status at discharge: patient is progressing back to baseline Mental Status: mental status grossly normal Speech and Movement: speech and movement normal Mood: congruent mood Affect: normal affect Quality:SDOH Health Related Social Needs: Health related social needs housing instability, house d, with risk of homelessness (Z59.811), problems finding work (Z56.9) Exam Narrative Exam Narrative: Constitutional The patient is lying in bed comfortable and cooperative during the interview, without acute distress and has thin body habitus HENMT: Facial structures with normal appearance Neuro:alert and oriented x 4 and nonfocal Resp: Shallow respiratory pattern, speaks in full sentences, unlabored breathing, clear lung bilaterally Cardio: regular rhythm, S1, S2, no murmur : Negative Costovertebral angle tenderness, no bladder distension Back/spine/Pelvis: No back tenderness, normal alignment Integumentary: No skin lesions or rash seen on exposed skin Psych: RASS 0, congruent mood and normal affect. Psych Mental Status: mental status grossly normal Speech and Movement: speech and movement normal Mood: congruent mood Affect: normal affect DS: Data Vitals/I&O Vitals and I&O: Vital Signs Temperature 36.6 C 07/08/24 14:56 Temperature Source Temporal Artery Scan 07/08/24 14:56 Pulse 68 07/08/24 14:56 Pulse Rhythm Regular 07/06/24 16:22 Pulse 92 H 07/06/24 15:19 Respiratory Rate 16 07/08/24 14:56 Respiratory Effort Normal, Non-Labored 07/06/24 16:22 Respiratory Depth Normal 07/06/24 16:22 Respiratory Pattern Normal 07/06/24 16:22 Blood Pressure 158/74 H 07/08/24 14:56 Blood Pressure Mean 112 07/06/24 15:19 Pulse Oximetry 98 07/08/24 14:56 Oxygen Delivery Method Room Air 07/08/24 14:56 Oxygen Flow Rate 0 07/08/24 14:56 Pain Level 0 07/07/24 23:36 Comment Pt refused vitals expressed need to sleep w/ out interruption. 07/07/24 00:53 Intake & Output 07/07/24 07/08/24 07/08/24 23:59 11:59 23:59 Intake Total 220 / 620 360 / 360 Balance 220 / 620 360 / 360 Intake: Oral 220 / 620 360 / 360 Other: Urine Color Yellow Yellow Urine Odor Normal Comment voided in the toilet pt voided x1 pt voided x1 Stool Size Moderate Stool Characteristics Soft Formed PFSH All Active Problems (Updated 07/08/24 @ 16:12 by Elsie Beatty APRN) Chest pain (Acute) Elevated troponin I level (Acute) Influenza A (Acute) Flu (Acute) Senile hyperkeratosis (Acute) Iron deficiency (Acute) Insomnia (Acute) Hyperlipidemia (Acute) Hearing loss (Acute) Fatigue (Acute) Epigastric pain (Acute) Depression (Chronic) Overactive bladder (Acute) Back pain (Acute) Atrophic vaginitis (Acute) Chronic pain (Chronic) Abdominal pain in female (Acute) Anemia (Chronic) Hematuria (Acute) Hip abductor tendinitis (Acute) S/P total hip arthroplasty (Acute) Right Knee effusion, right (Acute) Degenerative arthritis of spine (Acute) Medical History Hx of difficult intubation I was difficult to initubate because of my bone structure, a torus bone grownth I had a procedure during the whole hepatitis incident in the s, that I was so relaxed that I flat-lined [place] [facility] aware of this for anesthesia had consultation with pt. 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 Hx of rheumatic fever PT. STATES WHEN SHE WAS 11 SHE HAD RF, AND WAS ON PROPHYLACTIC (BICILLIN) ABX X 20 YEARS Nuclear sclerotic cataract of right eye Esophageal reflux resolved Arthritis Surgical History History of total left hip replacement (08/27/19) History of hip replacement 2009 right hip with H/O left wrist surgery Reconstructive surgery after suicidal attempt H/O exploratory laparotomy Pilonidal cyst History of tonsillectomy History of hernia repair Status post carpal tunnel release of both wrists Status post total replacement of right hip Status post cataract extraction and insertion of intraocular lens of left eye (07/13/18) Status post cataract extraction and insertion of intraocular lens of right eye (06/29/18) Vaginal hysterectomy Colonoscopy - MAC (08/23/17) Appendectomy Social History Smoking/Tobacco Use Status: Former Tobacco Use Quit Date: 06/19/78 Tobacco: How many years used: 15 Smoking risk assessment performed?: Yes Alcohol Intake: never Drug use: Never Housing: apartment Current gender identity: female Do you feel safe at home: Yes Do you feel safe in your relationship?: Yes Female Reproductive History Menstrual control method: progestin IUCD Time Spent with Patient Time Spent with Patient: 70-84 minutes4 Time was spent: preparing to see the patient(eg.review tests), obtaining and/or reviewing separately otained hiistory, ordering medications,tests, procedures, referring, communicating with other health care team assistant, indepentently interpreting results, counseling the patient and care coordination
== END 2024-07-08 17:29 | disposition home or self-care (01) ==
LOC: ER 15:52 → MS 16:17
PROVIDERS: Nurse Practitioner Acute Care; Admitting Provider Family Medicine; Emergency Provider Emergency Medicine; PCP Nurse Practitioner Family; Visit Provider Family Medicine
DX: J10.1 Influenza due to other identified influenza virus with other respiratory manifestations (principal); D50.9 Iron deficiency anemia, unspecified; R07.89 Other chest pain; R74.8 Abnormal levels of other serum enzymes; E78.5 Hyperlipidemia, unspecified; F32.A Depression, unspecified; R53.83 Other fatigue; G47.00 Insomnia, unspecified; N32.81 Overactive bladder; G89.29 Other chronic pain; Z96.643 Presence of artificial hip joint, bilateral; R00.0 Tachycardia, unspecified; I10 Essential (primary) hypertension
CPT/HCPCS: 00123; 36415; 80048; 80053; 85027; 87637; 93005; 96372; 99285; J1650; 71045; 83735; 84484; 85025; 93010; 93306; 99222; 99232; 99239; G0378; J2470

== ENCOUNTER 2024-08-20 03:08 | Outpatient (CLI) | payer MEDICARE, BC, SELFPAY ==
[2024-08-20 14:09] LABS: Abs Immature Grans 0.03 10^3/uL (0.0-0.06); Absolute Basophil Count 0.04 10^3/uL (0.0-0.2); Absolute Eosinophil Count 0.18 10^3/uL (0.0-0.7); Absolute Lymphocyte Count 2.78 10^3/uL (1.2-3.4); Absolute Monocyte Count 0.44 10^3/uL (0.1-0.8); Basophils % 0.5 %; Eosinophils % 2.3 %; HCT 37.3 % (36.0-46.0); HGB 11.9 g/dL (11.2-15.7); Immature Grans % 0.4 %; Lymphocytes % 34.9 %; MCHC 31.9 % (32.0-36.0); MCV 88 fL (80-95); MPV 8.9 fL (8.0-11.0); Monocytes % 5.5 %; Neutrophils % 56.4 %; Platelet Count 378 10^3/uL (130-400); RBC 4.25 10^6/uL (3.93-5.22); RDW 15.6 % (11.7-14.6); RDW-SD 49.8 fL; WBC 7.97 10^3/uL (4.4-10.8)
[2024-08-20 14:37] LABS: Hemoglobin A1C 5.9 % (<5.7)
[2024-08-20 15:29] LABS: Iron 76 ug/dL (50-170); Total Iron Binding Capacity 271 ug/dL (250-450); Transferrin Sat 28 % (15-50)
[2024-08-20 15:32] LABS: ALT 18 U/L (14-59); AST 13 U/L (15-37); Albumin 3.9 g/dL (3.4-5.0); Alkaline Phosphatase 87 U/L (46-116); Anion Gap 8.9 mmol/L (3-11); BUN 16 mg/dL (7-18); CO2 28.1 mmol/L (21.0-32.0); CREATININE 0.9 mg/dL (0.55-1.02); Calcium 10.1 mg/dL (8.5-10.1); Calculated LDL 158 mg/dL (<100); Chloride 109 mmol/L (98-107); Cholesterol 258 mg/dL (<200); Estimated GFR 66.26 (mL/min/1.73m2); Ferritin 179 ng/mL (8-252); Glucose 148 mg/dL (74-106); HDL Cholesterol 68 mg/dL (>or=50); Potassium 4.2 mmol/L (3.5-5.1); Sodium 146 mmol/L (136-145); TSH (W/Ref FT4) 0.68 uIU/mL (0.36-3.74); Total Protein 7.3 g/dL (6.4-8.2); Triglyceride 164 mg/dL (<150)
== END 2024-08-20 03:09 | disposition home or self-care (01) ==
LOC: LBO 03:08
PROVIDERS: PCP Nurse Practitioner Family; Visit Provider Nurse Practitioner Family
DX: D64.9 Anemia, unspecified (principal); R73.03 Prediabetes; E78.5 Hyperlipidemia, unspecified; J10.1 Influenza due to other identified influenza virus with other respiratory manifestations; R79.89 Other specified abnormal findings of blood chemistry; Z09 Encounter for follow-up examination after completed treatment for conditions other than malignant neoplasm; D50.9 Iron deficiency anemia, unspecified
CPT/HCPCS: 36415; 80053; 80061; 82728; 83036; 83540; 83550; 84443; 85025

== ENCOUNTER 2024-08-27 08:00 | Outpatient (CLI) | payer MEDICARE, BC, SELFPAY ==
--- NOTE | 2024-08-27 08:00 | RT.EKG_ITS ---
APPROVED REPORT Exam: Resting ECG Reason for Exam: chest pain Patient Location: O HR:69 bpm ECG Measurements Heart Rate 69 AXIS WI 131 P 58 QRSd 83 QRS -4 QT 383 T 52 QTc 411 Conclusion Sinus rhythm...normal P axis, V-rate 50- 99 Normal Electrocardiogram
== END 2024-08-27 08:01 | disposition home or self-care (01) ==
LOC: DI.CARD 08:03
PROVIDERS: PCP Nurse Practitioner Family; Visit Provider Internal Medicine Cardiovascular Disease
DX: R07.9 Chest pain, unspecified (principal)
CPT/HCPCS: 93010

== ENCOUNTER → 2024-08-27 11:04 | Outpatient (BNVA) | payer MEDICARE, BC, SELFPAY | PROVIDERS: PCP Nurse Practitioner Family; Referring Provider Nurse Practitioner Family; Visit Provider Internal Medicine Cardiovascular Disease | DX: R79.89 Other specified abnormal findings of blood chemistry (principal); R07.9 Chest pain, unspecified | CPT/HCPCS: 93005; 99214 ==

== ENCOUNTER 2024-09-09 01:37 | Outpatient (CLI) | payer MEDICARE, BC, SELFPAY ==
--- NOTE | 2024-09-09 07:04 | DI.NM_ITS ---
APPROVED REPORT Exam: Exercise Treadmill Patient Location: Out-Patient Room/Bed: Stress Nurse: Yany Heller RN Ordering Provider:CARLOS ALBERTO MASD, Contact Number: BMI: 21.13 Baseline Rhythm: Sinus Rhythm Indications: atypical chest pain, elevated troponin Medical History Medical History: HLD, depression, chronic pain, anemia, RA, hx difficult intubation, hx influenza A, hx hepatitis Cardiac Medications: ezetimibe, ferrous sulfate, zolpidem Allergies: NKA Cardiac Risk Factors: family hx, HLD, former smoker Previous Cardiac Procedures: none Pretest Chest Pain Characteristics: No chest pain Exercise History: Indeterminate Physical Disabilities: none Lung Sounds: Clear to auscultation Heart Sounds: Regular Stress Test Details Test: Exercise stress testing was performed using a Chad protocol. Nuclear Acquisition: Rest Tc-99m/Stress Tc-99m 1 day Rest Isotope: Tc-99m Sestamibi. Dose: 10.0 Date: 09/09/2024 Injection Time: 0915 Stress Isotope: Tc-99m Sestamibi. Dose: 30.0 Date: 09/09/2024 Injection Time: 1123 HR Resting HR Supine: 60 bpm Max Heart Rate (APMHR): 144 bpm Resting HR Standin bpm Target HR (85% APMHR): 122 bpm Max HR Achieved: 135 bpm % of APMHR: 94 Recovery HR: 66 bpm HR response to stress: Normal HR response to stress BP Resting BP Supine: 164/72 mmHg Resting BP Standin/90 mmHg Max BP: 192/90 mmHg Recovery BP: 148/80 mmHg BP response to stress: Normal blood pressure response to stress. ECG Resting ECG: Sinus Rhythm Ectopy: rare PAC Stress ECG: Sinus Tachycardia ST Change: No significant ST segment changes noted Arrhythmia: rare PAC Recovery ECG: Sinus Rhythm Recovery ST Change: No significant ST segment changes noted Recovery Arrhythmia: occasional PACs Clinical Reason for Termination: Target HR Achieved Stress Symptoms: General Fatigue Exercise duration: 04 min31 sec Highest Stage Reached: Stage 2: 2.5 mph at 12% grade. Exercise capacity: 6.44 METs Angina Score: None Rate Pressure Product: [id number] Stress ECG Conclusion 1. Resting electrocardiogram was normal 2. Patient exercised on the Chad protocol and completed a workload of 6.5 METS 3. Normal heart rate and blood pressure response to exercise. The patient achieved 94% of maximal pr edicted heart rate for age 4. There was no electrocardiographic evidence of myocardial ischemia 5. See MPI report Stress Test Summary STAGE Time (mins) Speed (mph) Grade (%) HR BP SpO2 SYMPTOMS METS Supine 60 164/72 Standing 75 192/90 1 3 1.7 10 117 170/90 4.5 2 6 2.5 12 129 7 1 min recovery 70 186/68 96 3 min recovery 62 158/70 6 min recovery 66 148/80 98 MPI Conclusion Myocardial perfusion is normal. There is no ischemia or evidence of prior infarction Ejection fraction is 65% with normal wall motion
== END 2024-09-09 01:57 ==
LOC: DI 01:38
PROVIDERS: PCP Nurse Practitioner Family; Visit Provider Internal Medicine Cardiovascular Disease
DX: R07.9 Chest pain, unspecified (principal)
CPT/HCPCS: 78452; 93016; 93018; 93017

== ENCOUNTER → 2024-09-17 09:55 | Outpatient (BNVA) | payer MEDICARE, BC, SELFPAY | PROVIDERS: PCP Nurse Practitioner Family; Referring Provider Nurse Practitioner Family; Visit Provider Internal Medicine Cardiovascular Disease | DX: R79.89 Other specified abnormal findings of blood chemistry (principal) | CPT/HCPCS: 99213 ==

== ENCOUNTER 2024-10-31 01:14 | Outpatient (CLI) | payer MEDICARE, BC, SELFPAY ==
--- NOTE | 2024-10-31 | DI.MRI_ITS ---
Exam(s) MR UPPER JOINT LT WO EXAM: MR UPPER JOINT LT WO CLINICAL HISTORY: Lt wrist pain/swelling, M25.532. TECHNIQUE: Multiplanar multisequence MRI was performed. COMPARISON: There are no prior examination for comparison. FINDINGS: The examination is limited due to patient motion artifact. BONES: There is no fracture or contusion pattern. There is a small cysts seen in the capitate. Mild s ubchondral edema is seen in the scaphoid, lunate and distal radius. This may be related to arthritis. JOINTS: The radiocarpal joint is unremarkable. The carpal joints are unremarkable. TENDONS: Flexors: Unremarkable. Extensors: The extensor carpi radialis longus tendon shows thickening and mild heterogeneous signal a t the level of the radiocarpal joint. There is also thickening and heterogeneous signal seen within t he extensor carpi radialis brevis tendon at the radiocarpal joint. The tendon appears attenuated post erior to the scaphoid. The findings are suspicious for partial tear. There is fluid seen in the sheat hs of these 2 tendons. There is mild thickening and increased signal of the extensor carpi ulnaris te ndon. There is mild thickening and heterogeneous signal in the extensor pollicis longus tendon as it passes lateral to the extensor carpi radialis tendons. The remaining extensor tendons are unremarkabl e. MUSCLES: Unremarkable. MEDIAN NERVE: Unremarkable on this noncontrast examination. ULNAR NERVE: Unremarkable on this noncontrast examination. SOFT TISSUES: There is a small fluid collection at the inferior aspect of the articulation of the pis iform and triquetrum likely reflecting a small ganglion cyst. And measures 5 mm in diameter. LIGAMENTS: Unremarkable. TRIANGULAR FIBROCARTILAGE: Unremarkable. OTHER: IMPRESSION: 1. The examination is limited due to patient motion artifact. 2. Findings suspicious for partial tear versus tendinosis of the extensor carpi radialis brevis tendo n. 3. Tenosynovitis of the extensor carpi radialis longus tendon. 4. Tendinosis of the extensor pollicis longus tendon and extensor carpi ulnaris tendon. 5. Degenerative changes in the wrist. 6. Small ganglion cyst at the questionable pisiform joint. DATA REPOSITORY:
== END 2024-10-31 01:34 ==
LOC: DI 01:15
PROVIDERS: PCP Nurse Practitioner Family; Visit Provider Orthopaedic Surgery
DX: M67.834 Other specified disorders of tendon, left wrist (principal)
CPT/HCPCS: 73221

== ENCOUNTER 2024-11-21 08:57 | Outpatient (CLI) | payer MEDICARE, BC, SELFPAY ==
[2024-11-21 08:34] LABS: Abs Immature Grans 0.02 10^3/uL (0.0-0.06); Absolute Basophil Count 0.03 10^3/uL (0.0-0.2); Absolute Eosinophil Count 0.32 10^3/uL (0.0-0.7); Absolute Monocyte Count 0.47 10^3/uL (0.1-0.8); Absolute Neutrophil Count 3.47 10^3/uL (1.2-6.7); Basophils % 0.4 %; Eosinophils % 4.7 %; HGB 11.8 g/dL (11.2-15.7); Immature Grans % 0.3 %; Lymphocytes % 36.7 %; MCH 27.5 pg (27.0-33.0); MCHC 31.9 % (32.0-36.0); MCV 86 fL (80-95); MPV 8.6 fL (8.0-11.0); Monocytes % 6.9 %; Platelet Count 372 10^3/uL (130-400); RBC 4.29 10^6/uL (3.93-5.22); RDW-SD 47.3 fL; WBC 6.81 10^3/uL (4.4-10.8)
[2024-11-21 08:49] LABS: Hemoglobin A1C 6.1 % (<5.7)
[2024-11-21 08:55] LABS: Iron 101 ug/dL (50-170); Total Iron Binding Capacity 271 ug/dL (250-450); Transferrin Sat 37 % (15-50)
[2024-11-21 09:02] LABS: ALT 10 U/L (14-59); AST 13 U/L (15-37); Albumin 3.7 g/dL (3.4-5.0); Alkaline Phosphatase 83 U/L (46-116); Anion Gap 8.3 mmol/L (3-11); BUN 12 mg/dL (7-18); Bilirubin, Total 0.4 mg/dL (0.2-1.0); CO2 25.7 mmol/L (21.0-32.0); CREATININE 0.8 mg/dL (0.55-1.02); Calcium 9.7 mg/dL (8.5-10.1); Calculated LDL 167 mg/dL (<100); Chloride 105 mmol/L (98-107); Cholesterol 258 mg/dL (<200); Estimated GFR 76.31 (mL/min/1.73m2); Ferritin 245 ng/mL (8-252); Glucose 118 mg/dL (74-106); HDL Cholesterol 67 mg/dL (>or=50); Sodium 139 mmol/L (136-145); TSH (W/Ref FT4) 0.95 uIU/mL (0.36-3.74); Total Protein 7.6 g/dL (6.4-8.2); Triglyceride 123 mg/dL (<150)
== END 2024-11-21 08:58 | disposition home or self-care (01) ==
LOC: LBO 08:58
PROVIDERS: PCP Nurse Practitioner Family; Visit Provider Nurse Practitioner Family
DX: R79.89 Other specified abnormal findings of blood chemistry (principal); R53.83 Other fatigue
CPT/HCPCS: 36415; 80053; 80061; 82728; 83036; 83540; 83550; 84443; 85025

== ENCOUNTER 2025-02-26 04:28 | Outpatient (CLI) | payer MEDICARE, BC, SELFPAY ==
[2025-02-26 10:07] LABS: HCT 36.7 % (36.0-46.0); HGB 11.5 g/dL (11.2-15.7); MCH 27.6 pg (27.0-33.0); MCHC 31.3 % (32.0-36.0); MCV 88 fL (80-95); MPV 8.5 fL (8.0-11.0); Platelet Count 441 10^3/uL (130-400); RBC 4.17 10^6/uL (3.93-5.22); RDW 14.0 % (11.7-14.6); RDW-SD 45.1 fL; WBC 4.33 10^3/uL (4.4-10.8)
[2025-02-26 10:29] LABS: Immature Grans % 0.0 %
[2025-02-26 10:30] LABS: Abs Immature Grans 0.00 10^3/uL (0.0-0.06); RBC Morphology Normal
[2025-02-26 10:32] LABS: Hemoglobin A1C 5.7 % (<5.7)
[2025-02-26 10:49] LABS: Iron 68 ug/dL (50-170); Total Iron Binding Capacity 276 ug/dL (250-450); Transferrin Sat 25 % (15-50)
[2025-02-26 12:07] LABS: ALT 19 U/L (14-59); AST 18 U/L (15-37); Albumin 3.9 g/dL (3.4-5.0); Alkaline Phosphatase 88 U/L (46-116); Anion Gap 12.0 mmol/L (3-11); BUN 8 mg/dL (7-18); Bilirubin, Total 0.3 mg/dL (0.2-1.0); CO2 24.0 mmol/L (21.0-32.0); Calcium 9.8 mg/dL (8.5-10.1); Calculated LDL 151 mg/dL (<100); Chloride 107 mmol/L (98-107); Cholesterol 231 mg/dL (<200); Estimated GFR 76.31 (mL/min/1.73m2); Ferritin 148 ng/mL (8-252); Glucose 98 mg/dL (74-106); HDL Cholesterol 61 mg/dL (>or=50); Potassium 4.3 mmol/L (3.5-5.1); Sodium 143 mmol/L (136-145); TSH (W/Ref FT4) 0.57 uIU/mL (0.36-3.74); Total Protein 7.2 g/dL (6.4-8.2); Triglyceride 98 mg/dL (<150)
== END 2025-02-26 04:29 | disposition home or self-care (01) ==
PROVIDERS: PCP Nurse Practitioner Family; Visit Provider Nurse Practitioner Family
DX: N18.2 Chronic kidney disease, stage 2 (mild) (principal); D64.9 Anemia, unspecified
CPT/HCPCS: 80053; 80061; 82728; 83036; 83540; 83550; 84443; 85025

== ENCOUNTER 2025-03-13 04:08 | Outpatient (CLI) | payer MEDICARE, BC, SELFPAY ==
--- NOTE | 2025-03-13 15:51 | DI.MAMMO_ITS ---
Exam(s) MAMMO SCREENING EXAM: MAMMO SCREENING CLINICAL HISTORY: SCREENING MAMMO Z12.31 TECHNIQUE: Mammograms were interpreted according to the usual protocol including computer analysis with CAD system, tomosynthesis and C-view imaging. COMPARISON: 2015 through 2022 FINDINGS: The breasts are composed of scattered fibroglandular densities, Breast Density category B. No suspicious masses or suspicious microcalcifications are seen. No skin thickening or abnormal axillary lymph nodes are seen. There has been no significant change from prior exams. IMPRESSION: BI-RADS Category 1, Negative mammogram Yearly screening mammography is recommended. Breast Density - Category B - There are scattered areas of fibroglandular density. Breast density Category C or D implies that the patient has dense breast tissue. Dense breast tissue can make it harder to find cancer on a mammogram. Dense breast tissue is also associated with an increased risk of breast cancer. This information about the result of the mammogram report was provided to the patient to raise their awareness. Use this report when you speak with the patient about their risks for breast cancer, which includes their family history. At that time, you may recommend additional screening tests (Ultrasound or MRI) as these tests may add significant information. A negative radiographic report should not delay biopsy if a dominant or clinically suspicious mass is present. Up to ten percent of cancers are not identified on mammography. A negative report may reinforce clinical impression. Adenosis and dense breasts may obscure an underlying neoplasm. False positive reports average 6 to 10%. Patient will receive a letter notifying them of these results.
== END 2025-03-13 04:28 ==
LOC: DI 04:08
PROVIDERS: PCP Nurse Practitioner Family; Visit Provider Nurse Practitioner Family
DX: Z12.31 Encounter for screening mammogram for malignant neoplasm of breast (principal); R92.323 Mammographic fibroglandular density, bilateral breasts
CPT/HCPCS: 77063; 77067